=== PATIENT | female | born 1970 | race Caucasian/White ===

== ENCOUNTER 2017-12-26 10:42 | Outpatient (CLI) | payer MEDICAID, SELFPAY ==
[2017-12-26 11:10] LABS: Hemoglobin A1C 5.6 % (4.5-6.2)
[2017-12-26 11:33] LABS: TSH 2.44 uIU/mL (0.358-3.74)
[2017-12-27 12:16] LABS: Hepatitis C Ab w Rflx HCV PCR Negative (NEGAT)
== END 2017-12-26 10:43 ==
PROVIDERS: PCP General Practice; Visit Provider General Practice
DX: E11.9 Type 2 diabetes mellitus without complications (principal); E03.9 Hypothyroidism, unspecified; Z11.59 Encounter for screening for other viral diseases
CPT/HCPCS: 36415; 86803; 83036; 84443

== ENCOUNTER 2018-05-11 15:59 | Outpatient (REF) | payer MEDICAID, SELFPAY ==
--- NOTE | 2018-05-11 13:00 | PAPFT_PTH ---
PATIENT: José Miguel Park LOC: [facility] U#:[id number] AGE/SX: 47/F ROOM: RE05/11/[address]: LUIS Villalobos : 1970 BED: DIS: 05/11/2018 SPEC #: [id number] RECD: 05/11/18 17:48 STATUS: BELEN REQ #: [id number] KWAME: 05/11/18 13:[address]: Ana Maria Turner [facility] Cytology RECD BY: Brandy Bray ENTERED: 05/11/18 17:49 SP TYPE: PAPFT OTHR DR: Gaudencio Ramirez Tissues: 1 - CX/ENDOCX FOR PAP SMEARS Procedures: PAP THIN PREP/UVM Screening HPV DNA PROBE Comments: [id number]
== END 2018-05-11 16:19 ==
LOC: LBN 15:59
PROVIDERS: PCP General Practice; Visit Provider Nurse Practitioner Family
DX: Z12.4 Encounter for screening for malignant neoplasm of cervix (principal); Z11.51 Encounter for screening for human papillomavirus (HPV)
CPT/HCPCS: 88142; 87624

== ENCOUNTER 2018-06-13 00:54 | Outpatient (CLI) | payer MEDICAID, SELFPAY ==
--- NOTE | 2018-06-13 12:28 | DI.MAMMO_ITS ---
SYMPTOMS/DIAGNOSIS: SCREENING, Z12.31 MAMMOGRAMS: Mammograms were interpreted according to the usual protocol including computer analysis with CAD system, tomosynthesis and C view imaging. Comparison is with the prior examinations. No suspicious masses or microcalcifications are seen. There is no definite evidence of malignancy. IMPRESSION: Negative mammogram. Routine screening is recommended. Category 1, breast density A. MQSA ASSESSMENT OF FINDINGS: Negative. Category 1. Patient will receive a letter notifying them of these results. BI-RAD category A. The breasts are almost entirely fatty.
== END 2018-06-13 01:14 ==
PROVIDERS: PCP General Practice; Visit Provider Nurse Practitioner Family
DX: Z12.31 Encounter for screening mammogram for malignant neoplasm of breast (principal)
CPT/HCPCS: 77063; 77067

== ENCOUNTER 2018-07-28 09:44 | Outpatient (CLI) | payer MEDICAID, SELFPAY ==
[2018-07-28 11:23] LABS: Potassium 3.8 mmol/L (3.5-5.1)
[2018-07-28 11:28] LABS: Bilirubin Negative (Negative); Blood Negative (Negative); Clarity Clear; Glucose Negative (Negative); Ketones Negative (Negative); Leukocyte Esterase Negative (Negative); Nitrite Negative (Negative); Specific Gravity <= 1.005 (1.005-1.025); Urobilinogen 0.2 EU/dL (Up TO 0.2)
== END 2018-07-28 10:04 ==
PROVIDERS: PCP General Practice; Visit Provider General Practice
DX: I10 Essential (primary) hypertension (principal)
CPT/HCPCS: 81003; 82565; 84132

== ENCOUNTER 2018-08-25 11:28 | Outpatient (CLI) | payer MEDICAID, SELFPAY ==
[2018-08-25 13:06] LABS: Anion Gap 9.1 mmol/L (3-11); BUN 9 mg/dL (7-18); CO2 27.9 mmol/L (21.0-32.0); CREATININE 0.66 mg/dL (0.55-1.02); Chloride 96 mmol/L (98-107); Potassium 3.9 mmol/L (3.5-5.1); Sodium 133 mmol/L (136-145)
== END 2018-08-25 11:48 ==
PROVIDERS: PCP General Practice; Visit Provider General Practice
DX: I10 Essential (primary) hypertension (principal)
CPT/HCPCS: 36415; 80051; 84520; 82565

== ENCOUNTER 2018-09-20 08:05 | Outpatient (CLI) | payer MEDICAID, SELFPAY ==
[2018-09-20 08:57] LABS: Sodium 135 mmol/L (136-145)
== END 2018-09-20 08:25 ==
PROVIDERS: PCP General Practice; Visit Provider General Practice
DX: E87.1 Hypo-osmolality and hyponatremia (principal)
CPT/HCPCS: 36415; 84295

== ENCOUNTER 2018-11-07 08:18 | Outpatient (CLI) | payer MEDICAID, SELFPAY ==
[2018-11-07 09:54] LABS: COMMENT (LAB VIEW ONLY) 41.29 mg/dL; Microalb ug/mg Crea 21.6 ug/mg Cr
[2018-11-07 10:07] LABS: Anion Gap 8.7 mmol/L (3-11); CO2 26.3 mmol/L (21.0-32.0); Calculated LDL 100; Chloride 102 mmol/L (98-107); Cholesterol 173 mg/dL (50-200); Glucose 129 mg/dL (70-100); HDL Cholesterol 52 mg/dL (40-60); Potassium 3.9 mmol/L (3.5-5.1); Sodium 137 mmol/L (136-145); TSH (W/Ref FT4) 1.34 uIU/mL (0.358-3.74); Triglyceride 107 mg/dL (30-150)
[2018-11-07 15:16] LABS: BUN 7 mg/dL (7-18)
== END 2018-11-07 08:38 ==
PROVIDERS: PCP Internal Medicine; Visit Provider Internal Medicine
DX: E03.9 Hypothyroidism, unspecified (principal); E11.9 Type 2 diabetes mellitus without complications; I10 Essential (primary) hypertension
CPT/HCPCS: 36415; 80048; 80061; 83721; 82043; 82570; 84443

== ENCOUNTER 2019-07-12 01:39 | Outpatient (CLI) | payer MEDICAID, SELFPAY ==
--- NOTE | 2019-07-12 12:30 | DI.MAMMO_ITS ---
EXAM: MAMMO SCREENING CLINICAL HISTORY: screening TECHNIQUE: Mammograms were interpreted according to the usual protocol including computer analysis w [employer] CAD system, tomosynthesis and C-view imaging. COMPARISON: 2011 through 2018 FINDINGS: The breasts are composed of mainly fatty density , Breast Density category A. Mild scarring from bilateral breast reduction is again noted. No suspicious masses or suspicious microcalcifications are seen. No skin thickening or abnormal axillary lymph nodes are seen. There has been no significant change from prior exams. IMPRESSION: BIRADS Category 1, negative mammogram. Yearly screening mammography is recommended. Breast density category A.
== END 2019-07-12 01:59 ==
PROVIDERS: PCP Internal Medicine; Visit Provider Nurse Practitioner Family
DX: Z12.31 Encounter for screening mammogram for malignant neoplasm of breast (principal)
CPT/HCPCS: 77063; 77067

== ENCOUNTER 2019-11-09 04:16 | Outpatient (CLI) | payer MEDICAID, SELFPAY ==
[2019-11-09 12:42] LABS: Anion Gap 9.9 mmol/L (3-11); BUN 8 mg/dL (7-18); CO2 26.1 mmol/L (21.0-32.0); CREATININE 0.84 mg/dL (0.55-1.02); Calcium 9.7 mg/dL (8.5-10.1); Calculated LDL 99 mg/dL (<100); Chloride 100 mmol/L (98-107); Cholesterol 184 mg/dL (<200); Glucose 198 mg/dL (74-106); HDL Cholesterol 56 mg/dL (40-60); Potassium 3.7 mmol/L (3.5-5.1); Sodium 136 mmol/L (136-145); TSH 1.36 uIU/mL (0.36-3.74); Triglyceride 146 mg/dL (<150)
[2019-11-09 12:48] LABS: COMMENT (LAB VIEW ONLY) < 13.00 mg/dL
== END 2019-11-09 04:36 ==
PROVIDERS: PCP Internal Medicine; Visit Provider Internal Medicine
DX: E11.9 Type 2 diabetes mellitus without complications (principal); E78.00 Pure hypercholesterolemia, unspecified; I10 Essential (primary) hypertension; E03.9 Hypothyroidism, unspecified
CPT/HCPCS: 36415; 80048; 80061; 82043; 82570; 84443

== ENCOUNTER 2020-01-25 15:00 | Outpatient (REF) | payer MEDICAID, SELFPAY ==
[2020-01-28 14:52] LABS: Chlamydia Result Negative (Negative); GC Result Negative (Negative)
== END 2020-01-25 15:20 ==
LOC: LBN 15:00
PROVIDERS: PCP Internal Medicine; Visit Provider Nurse Practitioner Family
DX: Z11.3 Encounter for screening for infections with a predominantly sexual mode of transmission (principal)
CPT/HCPCS: 87491; 87591

== ENCOUNTER 2020-02-08 02:57 | Outpatient (CLI) | payer MEDICAID, SELFPAY ==
--- NOTE | 2020-02-08 06:30 | DI.US_ITS ---
EXAM: US PELVIS TRANSVAGINAL CLINICAL HISTORY: abnormal vaginal bleeding,N93.9 TECHNIQUE: Ultrasound performed using standard protocol. COMPARISON: US ABDOMEN ULTRASOUND (P) from 02/13/2013 FINDINGS: Pelvic ultrasound was performed transabdominally and transvaginally. Uterus is heterogeneous and doug sures 67 x 33 x 48 millimeters. Endometrial stripe is about 7 millimeters in thickness and appears h eterogeneous. Small nabothian cysts are noted. The ovaries show a normal follicular appearance. Doppler evaluation of the ovaries is unremarkable. No free fluid in the cul-de-sac Limited scanning of the kidneys was obtained. No gross hydronephrosis. Poor visualization of right kidney, possible small echogenic focus of the upper pole of the right kidney, suspect angiomyolipoma. IMPRESSION: Pelvic ultrasound was unremarkable except for mild heterogeneity of the endometrial stripe. The nancy ent is reportedly premenopausal. DATA REPOSITORY:
== END 2020-02-08 03:17 ==
PROVIDERS: PCP Internal Medicine; Visit Provider Nurse Practitioner Family
DX: N93.8 Other specified abnormal uterine and vaginal bleeding (principal)
CPT/HCPCS: 76830; 76856

== ENCOUNTER 2020-02-08 12:23 | Outpatient (REF) | payer MEDICAID, SELFPAY ==
--- NOTE | 2020-02-08 09:15 | ENDOMET_PTH ---
PATIENT: José Miguel Park LOC: [facility] U#:[id number] AGE/SX: 49/F ROOM: RE02/08/[address]: Roxy Guthrie DO : 1970 BED: DIS: 02/08/2020 SPEC #: [id number] RECD: 02/08/20 12:53 STATUS: BELEN REQ #: [id number] KWAME: 02/08/20 09:[address]: Roxy Guthrie DEPT: Surgical Specimen RECD BY: Brandy Bray ENTERED: 02/08/20 12:54 SP TYPE: Endomet OTHR DR: Lynsey Knapp MD Tissues: 1 - ENDOMETRIUM BX/RICHARD Procedures: GROSS AND MICRO LEVEL 4 Comments: [id number]
== END 2020-02-08 12:43 ==
LOC: LBN 12:23
PROVIDERS: PCP Internal Medicine; Visit Provider Obstetrics & Gynecology
DX: N85.00 Endometrial hyperplasia, unspecified (principal)
CPT/HCPCS: 88305

== ENCOUNTER 2021-08-20 02:14 | Outpatient (CLI) | payer MEDICAID, SELFPAY ==
--- NOTE | 2021-08-20 09:15 | DI.MRI_ITS ---
Exam(s) MR LOWER JOINT RT WO EXAM: MR LOWER JOINT RT WO CLINICAL HISTORY: DERANGEMENT OF MEDIAL MENISCUS, M23.309. TECHNIQUE: Multiplanar multisequence MRI was performed. COMPARISON: CR XR KNEE COMPLETE MIN 4V RT from 06/27/2021 FINDINGS: BONES: There is no fracture or contusion pattern. JOINTS: Severe narrowing of lateral patellofemoral joint space, periarticular spurring and lateral pa tellar subluxation. Cartilage thinning down to bone. Abnormal signal in the lateral patellar facet and adjacent aspect of the femur. Spurring lateral femoral condyle lateral tibial plateau. Mild car tilage thinning and irregularity of over the femoral condyles and tibial plateaus. Small to moderate -sized effusion is present. Ovoid bony loose body anterior to the tibial spines. TENDONS: Extensor mechanism: Unremarkable. Medial retinaculum: Unremarkable. Lateral retinaculum: Unremarkable. Popliteus: Unremarkable. MUSCLES: Unremarkable. MENISCI: Degenerative signal changes, medial greater than lateral. No focal tear.. SOFT TISSUES: Mild anterior edema. LIGAMENTS: Anterior Cruciate: Edema in the distal ACL no evidence of disrupted fibers. Posterior Cruciate: Unremarkable. Medial Collateral:Unremarkable. Lateral Collateral: Unremarkable. OTHER: Tiny Jesus's cyst. IMPRESSION: Severe degenerative changes of the lateral patellofemoral joint. Joint effusion. Loose body anterio r to the tibial spines. Question of ACL sprain versus mucoid degeneration. Degenerative changes of the menisci. DATA REPOSITORY:
== END 2021-08-20 02:34 ==
PROVIDERS: Visit Provider Family Medicine
DX: M17.11 Unilateral primary osteoarthritis, right knee (principal); M25.461 Effusion, right knee
CPT/HCPCS: 73721

== ENCOUNTER 2022-02-24 15:50 | Emergency (ER) | payer MEDICAID, SELFPAY ==
[2022-02-24 15:52] VITALS: BP 140/61; PULSE 73; RESP 16; TEMP 37.1; O2SAT 98
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
[2022-02-24 16:52] LABS: Bilirubin Negative (Negative); Blood Trace-intact (Negative); Glucose Negative (Negative); Ketones Negative (Negative); Leukocyte Esterase Small (Negative); Nitrite Negative (Negative); Urobilinogen 0.2 EU/dL (Up TO 0.2)
[2022-02-24 17:02] LABS: *AMPHETAMINES SCREEN URINE Negative (Negative); *BARBITURATES SCREEN URINE Negative (Negative); *BENZODIAZEPINES SCREEN URINE Negative (Negative); Cannabinoids THC Negative (Negative); Cocaine Screen,Urine Negative (Negative); METHADONE URINE SCREEN Negative (Negative); OPIATES URINE SCREEN Negative (Negative)
[2022-02-24 17:03] LABS: Abs Immature Grans 0.03 10^3/uL (0.0-0.06); Absolute Basophil Count 0.06 10^3/uL (0.0-0.2); Absolute Eosinophil Count 0.14 10^3/uL (0.0-0.7); Absolute Lymphocyte Count 3.01 10^3/uL (1.2-3.4); Absolute Monocyte Count 0.74 10^3/uL (0.1-0.8); Absolute Neutrophil Count 5.79 10^3/uL (1.2-6.7); Basophils % 0.6; Eosinophils % 1.4; HCT 39.2 % (36.0-46.0); HGB 13.9 g/dL (11.2-15.7); Immature Grans % 0.3; Lymphocytes % 30.8; MCH 32.6 pg (27.0-33.0); MCHC 35.5 % (32.0-36.0); MCV 92 fL (80-95); MPV 9.2 fL (8.0-11.0); Monocytes % 7.6; Neutrophils % 59.3; Platelet Count 323 10^3/uL (130-400); RBC 4.26 10^6/uL (3.93-5.22); RDW 11.2 % (11.7-14.6); WBC 9.77 10^3/uL (4.4-10.8)
[2022-02-24 17:05] LABS: Clarity Clear (Clear)
[2022-02-24 17:09] LABS: Tricyclic Antidepressants Negative (Negative)
[2022-02-24 17:11] LABS: Bacteria Rare HPF (Negative); C & S Indicated? Yes; Crystals Negative HPF (Negative); Epithelial Cells Few HPF (Negative); Mucus Negative (Negative); RBC 0-2 HPF (0-2)
[2022-02-24 17:22] LABS: ALT 33 U/L (14-59); AST 18 U/L (15-37); Albumin 3.7 g/dL (3.4-5.0); Alkaline Phosphatase 64 U/L (46-116); Anion Gap 8.6 mmol/L (3-11); BUN 9 mg/dL (7-18); Bilirubin, Total 0.3 mg/dL (0.2-1.0); CO2 26.4 mmol/L (21.0-32.0); CREATININE 0.7 mg/dL (0.55-1.02); Calcium 9.3 mg/dL (8.5-10.1); Chloride 99 mmol/L (98-107); Estimated GFR 104.65 (mL/min/1.73m2); Glucose 98 mg/dL (74-106); Potassium 3.2 mmol/L (3.5-5.1); Sodium 134 mmol/L (136-145); Total Protein 7.3 g/dL (6.4-8.2)
[2022-02-24 17:42] LABS: ETHANOL BLOOD < 3.0 mg/dL (<10)
[2022-02-24 17:58] LABS: Source Nasal/Nares
[2022-02-24 18:46] LABS: COVID-19 PCR Negative (Negative)
[2022-02-24] MEDS: ALPRAZolam 0.25 MG TAB 1 MG PO (21:48)
[2022-02-24] MEDS: lamoTRIgine 25 MG TAB 50 MG PO (21:48)
[2022-02-25] MEDS: Levothyroxine 88 MCG TAB PO (07:48)
--- NOTE | 2022-02-25 07:53 | ED.PROG_ITS ---
Date of service: 02/25/22 Time of Service: 07:54 Medical Decision Making Patient stable overnight, here voluntarily, awaiting inpatient psychiatric treatment placement. Sign Out Sign Out Data: Sign Out Comment: Voluntary. Medically cleared. Awaiting placement. Last updated by Arlene Lowe DO at 02/24/22 23:30 Discharge Plan Disposition Patient Disposition: STILL A PATIENT Condition: Stable Discharge Details Clinical Impression: Depression, Suicidal ideation Primary Care Provider: Unknown,Unknown ED Provider: Herson Jeter Home Meds and New Rx's Prescriptions: No Action albuterol sulfate [ProAir HFA] 90 mcg/actuation HFA aerosol inhaler 1 puff IH PRN medroxyprogesterone [Depo-Provera] 150 mg/mL syringe 150 mg IM ONCE Qty: 1 0RF levothyroxine [Synthroid] 88 mcg tablet 88 mcg PO DAILY Qty: 90 3RF (DME) blood-glucose meter [Blood Glucose Monitoring] Kit See Rx Instructions .ROUTE .MEDSUPPLY Qty: 1 0RF Rx Instructions: As directed. freestyle monitor. e11.9 (DME) FreeStyle Test Strip See Rx Instructions .ROUTE .MEDSUPPLY Qty: 100 6RF Rx Instructions: As directed to check Blood sugars 3x daily. calcium carbonate-vitamin D3 [Calcium 600 + D(3)] 600 mg(1,500mg) -200 unit tablet 1 tab PO BID Qty: 180 3RF (DME) lancets [FreeStyle Lancets] 28 gauge misc See Rx Instructions .ROUTE .MEDSUPPLY Qty: 100 3RF Rx Instructions: Use once a day for goal A1c < 7; Dx E11.9 fluticasone propionate [Flonase Allergy Relief] 50 mcg/actuation spray,suspe nsion 1 spray ONEAL DAILY PRN (Reason: nasal congestion) Qty: 36.4 0RF Premarin 0.625 mg/gram cream 1 applic VG twice weekly Qty: 30 3RF Rx Instructions: Use 0.5 GM in vagina twice weekly lamotrigine [Lamictal] 25 MG tablet 50 mg PO BID ziprasidone HCl [Geodon] 20 MG capsule 20 mg PO QAM ziprasidone HCl [Geodon] 40 MG capsule 40 mg PO HS alprazolam 1 mg Tablet 1 mg PO QHS metformin 500 mg Tablet 500 mg PO DAILY citalopram 40 mg Tablet 40 mg PO .QHS famotidine 40 mg Tablet 40 mg PO DAILY bupropion HCl 150 mg Tablet Extended Release 24 Hr 150 mg PO QAM alprazolam 0.5 mg Tablet,Disintegrating 0.5 mg PO DAILY omeprazole 20 mg Tablet,Delayed Release (Dr/Ec) 40 mg PO DAILY Lactobacillus acidoph-L.bulgar 1 million cell tablet 1 tab PO DAILY Label Comments: TAKE ONE TABLET BY MOUTH EVERY DAY IN THE MORNING
[2022-02-25] MEDS: Calcium 600mg/Vit D 200U TAB 1 TAB PO (08:22)
[2022-02-25] MEDS: lamoTRIgine 25 MG TAB 50 MG PO (08:22)
[2022-02-25] MEDS: metFORMIN C.R. 500 MG TABCR PO (08:23)
[2022-02-25] MEDS: Ziprasidone 20 MG CAP PO (08:23)
--- NOTE | 2022-02-25 09:42 | ED.PROG_ITS ---
Date of service: 02/25/22 Time of Service: 09:43 Medical Decision Making pt here voluntary for depression, stable overnight and currently calm resting in bed no acute complaints. Spoke with Dr. Valentine from [facility] and possibly could be transferred today. Sign Out Sign Out Data: Sign Out Comment: Voluntary. Medically cleared. Awaiting placement. Last updated by Arlene Lowe DO at 02/24/22 23:30 Sign Out Comment: Here voluntarily awaiting placement. Home meds ordered Last updated by Herson Jeter MD at 02/25/22 07:55 Discharge Plan Disposition Patient Disposition: [facility] Condition: Stable Discharge Details Clinical Impression: Depression, Suicidal ideation Primary Care Provider: Unknown,Unknown ED Provider: Yoseph Person Home Meds and New Rx's Prescriptions: No Action albuterol sulfate [ProAir HFA] 90 mcg/actuation HFA aerosol inhaler 1 puff IH PRN medroxyprogesterone [Depo-Provera] 150 mg/mL syringe 150 mg IM ONCE Qty: 1 0RF levothyroxine [Synthroid] 88 mcg tablet 88 mcg PO DAILY Qty: 90 3RF (DME) blood-glucose meter [Blood Glucose Monitoring] Kit See Rx Instructions .ROUTE .MEDSUPPLY Qty: 1 0RF Rx Instructions: As directed. freestyle monitor. e11.9 (DME) FreeStyle Test Strip See Rx Instructions .ROUTE .MEDSUPPLY Qty: 100 6RF Rx Instructions: As directed to check Blood sugars 3x daily. calcium carbonate-vitamin D3 [Calcium 600 + D(3)] 600 mg(1,500mg) -200 unit tablet 1 tab PO BID Qty: 180 3RF (DME) lancets [FreeStyle Lancets] 28 gauge misc See Rx Instructions .ROUTE .MEDSUPPLY Qty: 100 3RF Rx Instructions: Use once a day for goal A1c < 7; Dx E11.9 fluticasone propionate [Flonase Allergy Relief] 50 mcg/actuation spray,suspension 1 spray ONEAL DAILY PRN (Reason: nasal congestion) Qty: 36.4 0RF Premarin 0.625 mg/gram cream 1 applic VG twice weekly Qty: 30 3RF Rx Instructions: Use 0.5 GM in vagina twice weekly lamotrigine [Lamictal] 25 MG tablet 50 mg PO BID ziprasidone HCl [Geodon] 20 MG capsule 20 mg PO QAM ziprasidone HCl [Geodon] 40 MG capsule 40 mg PO HS metformin 500 mg Tablet 500 mg PO DAILY citalopram 40 mg Tablet 40 mg PO .QHS famotidine 40 mg Tablet 40 mg PO DAILY bupropion HCl 150 mg Tablet Extended Release 24 Hr 150 mg PO QAM alprazolam 0.5 mg Tablet,Disintegrating 0.5 mg PO DAILY omeprazole 20 mg Tablet,Delayed Release (Dr/Ec) 40 mg PO DAILY Lactobacillus acidoph-L.bulgar 1 million cell tablet 1 tab PO DAILY Label Comments: TAKE ONE TABLET BY MOUTH EVERY DAY IN THE MORNING alprazolam 1 mg Tablet Extended Release 24 Hr 1 mg PO HS
--- NOTE | 2022-02-25 10:16 | PDOC.CMSAFED ---
- If Service Date Differs Date of service: 02/25/22 Time of Service: 10:16 Care Management Safety Plan Status: Voluntary - Reason for Wait Reason for Wait: Inpatient Admission VOLUNTARY FOR INPATIENT PSYCHIATRIC STABILIZATION. Patient is appropriate in all interactions since arriving at [facility]; Pt has demonstrated appropriate coping and communication skills, has articulated his or her needs and concerns and is fully engaged during staff interactions. Safety plan has been established with patient, and care team, to adhere to patient goals, identify restrictions based on behavioral status, address nutrition, and determine allowed personal belongings, tools for hygiene and personal care. Determine level of activity including ambulation, level of supervision, visitors, and determine privileges based on behaviors and level of engagement by pt. SAFETY PLAN: 1. Will remain on suicide precautions. In Paper Clothes 2. Will remain in room under direct supervision of one-on-one staff at all times provided by [employer]; LADONNA, BETTING CLERK supervisor fiber locking. 3. May have paper cups, plates, finger foods as well as a cardboard spoon with which to eat meals. 4. Follow [facility] Management of the Admitted Behavioral Health Patient policy. 5. Comfort bath system only, shower permitted with escort at RN discretion. 6. No personal belongings-soft items permitted at RN discretion. 7. Visitors-none at this time. 8. Activities: soft cart items approved per RN discretion. 9. Bathroom privileges with escort in the ED, available in room without limitation on M/S. 10. Phone: contact limited to family at this time, via cordless phone at RN discretion. 11. Due to VOLUNTARY status, if patient wishes to leave [facility], staff will contact [facility] Crisis Screener ([phone]) and On-Call Retail Salesworker ([phone]) as soon as possible. In the event of elopement, notify [place] [employer] ([phone]). Patient is currently voluntarily at [facility] and seeking inpatient admission when a bed becomes available. [facility] Frontline Light Oil Operator will continue seeking placement. Please contact the Elementary Teacher Retail Salesworker ([phone]) and [facility] Light Oil Operator ([phone]) for any needed changes in the Safety Plan. Safety plan has been provided to interdepartmental care team.
--- NOTE | 2022-02-25 10:20 | PDOC.ERCMPRO ---
- If Service Date Differs Date of service: 02/25/22 Time of Service: 10:20 Care Management Progress Note S/O: A: José Miguel is a 51 year old woman admitted to the ED for SI P: José Miguel is awaiting voluntary placement in an inpatient psychiatric facility for stabilization.
[2022-02-25 11:19] VITALS: BP 131/69; PULSE 76; RESP 18; TEMP 36.6; O2SAT 98
== END 2022-02-25 12:22 | disposition short-term general hospital (02) ==
PROVIDERS: Physician Assistant; Emergency Provider Emergency Medicine
DX: F32.A Depression, unspecified (principal)
CPT/HCPCS: 80053; 80307; 81025; 87635; 99285; 80320; 81003; 81015; 85025; 87086

== ENCOUNTER → 2022-04-27 02:35 | Outpatient (CLI) | payer MEDICAID, SELFPAY ==
--- NOTE | 2022-04-27 07:15 | DI.RAD_ITS ---
Exam(s) XR SACRUM EXAM: XR SACRUM CLINICAL HISTORY: Pain directly on the sacrum,low back pain, m54.50. TECHNIQUE: 2D digital imaging was performed. Two images were obtained. COMPARISON: No exams were available for comparison FINDINGS: BONES: No acute fracture is present. No bony destructive lesion is seen. JOINTS: No dislocation present. SOFT TISSUE: Normal. IMPRESSION: Unremarkable radiographs of the sacrum. DATA REPOSITORY: RADIATION DOSE DELIVERED:
== END ==
PROVIDERS: Visit Provider Family Medicine
DX: M54.50 Low back pain, unspecified (principal)
CPT/HCPCS: 72220

== ENCOUNTER 2022-04-27 03:27 | Outpatient (CLI) | payer MEDICAID, SELFPAY ==
[2022-04-27 18:49] LABS: CRP, High Sensitivity >15.00 mg/L (See Note)
== END 2022-04-27 03:28 | disposition home or self-care (01) ==
LOC: LBO 03:27
PROVIDERS: Visit Provider Family Medicine
DX: M54.50 Low back pain, unspecified (principal)
CPT/HCPCS: 86141

== ENCOUNTER 2022-04-30 14:16 | Outpatient (REF) | payer MEDICAID, SELFPAY ==
[2022-05-02 13:27] LABS: Influenza A RNA Result Negative (Negative); Influenza B RNA Result Negative (Negative); RSV RNA Result Negative (Negative)
[2022-05-02 13:31] LABS: COVID-19 RT-PCR UVMMC Result Positive (Negative)
== END 2022-04-30 14:17 | disposition home or self-care (01) ==
LOC: LBN 14:16
PROVIDERS: Nurse Practitioner Family; PCP Family Medicine; Visit Provider Family Medicine
DX: R05.9 Cough, unspecified (principal); R06.02 Shortness of breath; R09.81 Nasal congestion; Z20.822 Contact with and (suspected) exposure to COVID-19
CPT/HCPCS: 87631; U0003

== ENCOUNTER 2022-05-05 15:09 | Emergency (ER) | payer MEDICAID, SELFPAY ==
[2022-05-05 15:09] VITALS: BP 155/76; PULSE 77; RESP 16; TEMP 36.4; O2SAT 98
[2022-05-05 15:13] VITALS: RESP 16
--- NOTE | 2022-05-05 15:45 | RT.EKG_ITS ---
APPROVED REPORT Exam: Resting ECG Reason for Exam: Shortness of Breath Patient Location: E HR:67 bpm ECG Measurements Heart Rate 67 AXIS FL 180 P 26 QRSd 89 QRS 26 QT 385 T 32 QTc 406 Conclusion Sinus rhythm...normal P axis, V-rate 60- 99 sinus rhythm, normal axis, normal intervals, non ischemic
--- NOTE | 2022-05-05 15:45 | DI.RAD_ITS ---
Exam(s) XR CHEST 2V PA LATERAL EXAM: XR CHEST 2V PA LATERAL CLINICAL HISTORY: cough, fever TECHNIQUE: 2D digital imaging was performed of the chest. Two images were obtained. PA and lateral views were obtained. COMPARISON: CR CHEST 2 VIEWS PA,LAT from 08/21/2014 FINDINGS: MEDIASTINUM: Normal. HEART: Normal. PULMONARY VASCULATURE: Normal. LUNGS: Clear. PLEURAL SPACE: No pleural effusion or pneumothorax. BONE:Within normal limits for the patient's age. OTHER FINDINGS:Normal. IMPRESSION: No acute pulmonary findings. DATA REPOSITORY: RADIATION DOSE DELIVERED:
[2022-05-05] MEDS: Albuterol/Ipratropium 3 ML UPD VIAL UPD (16:16)
[2022-05-05] MEDS: Acetaminophen 500 MG TAB 1000 MG PO (16:16)
[2022-05-05 16:37] LABS: HGB 14.2 g/dL (11.2-15.7); MCH 31.9 pg (27.0-33.0); MCHC 34.6 % (32.0-36.0); MCV 92 fL (80-95); MPV 8.7 fL (8.0-11.0); Platelet Count 342 10^3/uL (130-400); RBC 4.45 10^6/uL (3.93-5.22); RDW 10.9 % (11.7-14.6); RDW-SD 37.1 fL; WBC 11.16 10^3/uL (4.4-10.8)
[2022-05-05 16:53] LABS: ALT 31 U/L (14-59); AST 18 U/L (15-37); Albumin 3.9 g/dL (3.4-5.0); Alkaline Phosphatase 78 U/L (46-116); Anion Gap 6.7 mmol/L (3-11); BUN 7 mg/dL (7-18); Bilirubin, Total 0.3 mg/dL (0.2-1.0); CO2 28.3 mmol/L (21.0-32.0); CREATININE 0.6 mg/dL (0.55-1.02); Calcium 9.6 mg/dL (8.5-10.1); Chloride 94 mmol/L (98-107); Estimated GFR 108.61 (mL/min/1.73m2); Glucose 136 mg/dL (74-106); Potassium 3.2 mmol/L (3.5-5.1); Sodium 129 mmol/L (136-145); Total Protein 7.9 g/dL (6.4-8.2)
[2022-05-05 16:58] LABS: Troponin I < 50 ng/L (<or=60)
--- NOTE | 2022-05-05 17:17 | DI.VRAD_ITS ---
PROCEDURE INFORMATION: Exam: XR Chest Exam date and time: 05/05/2022 4:47 PM Age: 51 years old Clinical indication: Cough and fever TECHNIQUE: Imaging protocol: Radiologic exam of the chest. Views: 2 views. COMPARISON: None. FINDINGS: Lungs: The lungs are clear. There is no pulmonary vascular congestion. Pleural spaces: There are no pleural effusions present. There is no evidence of pneumothorax. Heart/Mediastinum: The cardiomediastinal silhouette is within normal limits. Diaphragm: There is mild anterior eventration of the right hemidiaphragm. Bones/joints: Unremarkable. IMPRESSION: No active cardiopulmonary disease identified. Dictated and Authenticated by: Oral Stokes MD. Ordering:ROBERT Garcia MD
[2022-05-05 17:20] LABS: D-Dimer 399 ng/mlFEU (<500)
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
[2022-05-05] MEDS: Amox. 875/Clav. 125, 2 TABS/BTL 1 TAB PO (18:02)
[2022-05-05] MEDS: Amoxicillin 875/Clav. 125 TAB PO (18:03)
[2022-05-05] MEDS: POTASSIUM CHLORIDE 20 MEQ, POTASSIUM CHLORIDE 10 MEQ 30 MEQ PO (18:08)
--- NOTE | 2022-05-05 18:17 | NUR.NOTE ---
Nursing Note: Referral faxed to PCP for lab abnormalities recheck pneumonia; early next week.
== END 2022-05-05 18:24 | disposition home or self-care (01) ==
LOC: ER 18:23
PROVIDERS: Emergency Provider Nurse Practitioner Family; PCP Family Medicine
DX: J18.9 Pneumonia, unspecified organism (principal); E87.6 Hypokalemia; D72.829 Elevated white blood cell count, unspecified; F31.9 Bipolar disorder, unspecified; E87.1 Hypo-osmolality and hyponatremia; Z20.822 Contact with and (suspected) exposure to COVID-19
CPT/HCPCS: 80053; 85027; 93005; 99284; 71046; 84484; 85379; 93010; J7620

== ENCOUNTER 2022-05-18 03:57 | Outpatient (CLI) | payer MEDICAID, SELFPAY ==
[2022-05-18 11:09] LABS: Anion Gap 7.3 mmol/L (3-11); BUN 7 mg/dL (7-18); CO2 29.7 mmol/L (21.0-32.0); CREATININE 0.6 mg/dL (0.55-1.02); Calcium 9.6 mg/dL (8.5-10.1); Chloride 98 mmol/L (98-107); Estimated GFR 108.61 (mL/min/1.73m2); Glucose 91 mg/dL (74-106); Potassium 3.6 mmol/L (3.5-5.1); Sodium 135 mmol/L (136-145)
== END 2022-05-18 03:58 | disposition home or self-care (01) ==
LOC: LBO 03:57
PROVIDERS: PCP Family Medicine; Visit Provider Family Medicine
DX: E87.6 Hypokalemia (principal)
CPT/HCPCS: 36415; 80048

== ENCOUNTER 2022-06-22 01:36 | Outpatient (CLI) | payer MEDICAID, SELFPAY ==
--- NOTE | 2022-06-22 08:51 | DI.MAMMO_ITS ---
Exam(s) MAMMO SCREENING EXAM: MAMMO SCREENING CLINICAL HISTORY: screening TECHNIQUE: Bilateral full field digital CC and MLO mammographic images were obtained with 3D tomosyn thesis and utilizing computer aided detection (CAD). COMPARISON: Available for comparison. FINDINGS: Masses/Architectural Distortion: None seen. Microcalcifications: No suspicious pleomorphic-type are seen. Skin Thickening/Nipple Retraction: None. IMPRESSION: 1. No significant interval change with no specific features of malignancy noted. 2. Unless there is more urgent need, screening mammography is recommended, as per [place] [employer] guidelines. BI-RADS Category 1 - Negative Breast Density - Category A - Almost entirely fatty Breast density category C or D implies that the patient has dense breast tissue. Dense breast tissue is very common and is not abnormal but dense breast tissue can make it harder to find cancer on a ma mmogram. Also, dense breast tissue may increase their breast cancer risk. This information about the result of the mammogram report was provided to the patient to raise their awareness. Use this report when you speak with the patient about their risks for breast cancer, which includes their family hist ory. At that time, you may recommend for more screening tests (Ultrasound or MRI) as they might be us eful based on their risk. A negative radiographic report should not delay biopsy if a dominant or clinically suspicious mass is present. Up to ten percent of cancers are not identified on mammography. A negative report may reinforce clinical impression. Adenosis and dense breasts may obscure an underlying neoplasm. False positive reports average 6 to 10%. Patient will receive a letter notifying them of these results.
== END 2022-06-22 01:56 ==
LOC: DI 01:36
PROVIDERS: PCP Family Medicine; Visit Provider Nurse Practitioner Women's Health
DX: Z12.31 Encounter for screening mammogram for malignant neoplasm of breast (principal)
CPT/HCPCS: 77063; 77067

== ENCOUNTER 2022-06-29 15:54 | Outpatient (REF) | payer MEDICAID, SELFPAY ==
[2022-06-30 20:16] LABS: COVID-19 RT-PCR UVMMC Result Negative (Negative)
== END 2022-06-29 15:55 | disposition home or self-care (01) ==
LOC: LBN 15:54
PROVIDERS: PCP Family Medicine; Visit Provider Family Medicine
DX: Z20.822 Contact with and (suspected) exposure to COVID-19 (principal)
CPT/HCPCS: U0003

== ENCOUNTER 2022-07-02 01:09 | Outpatient (CLI) | payer MEDICAID, SELFPAY ==
--- NOTE | 2022-07-02 07:00 | DI.RAD_ITS ---
Exam(s) XR CHEST 2V PA LATERAL EXAM: XR CHEST 2V PA LATERAL CLINICAL HISTORY: Possible previous BCG, needs xray for clearance,positive PPD,R76.11 TECHNIQUE: 2D digital imaging was performed of the chest. Two images were obtained. PA and lateral views were obtained. COMPARISON: CR,XR XR CHEST 2V PA LATERAL from 05/05/2022 FINDINGS: MEDIASTINUM: Normal. HEART: Normal. PULMONARY VASCULATURE: Normal. LUNGS: Clear. PLEURAL SPACE: No pleural effusion or pneumothorax. BONE:Within normal limits for the patient's age. OTHER FINDINGS:Normal. IMPRESSION: No acute pulmonary findings. DATA REPOSITORY: RADIATION DOSE DELIVERED:
== END 2022-07-02 01:29 ==
LOC: DI 01:09
PROVIDERS: PCP Family Medicine; Visit Provider Family Medicine
DX: R76.11 Nonspecific reaction to tuberculin skin test without active tuberculosis (principal)
CPT/HCPCS: 71046

== ENCOUNTER 2022-07-02 02:18 | Outpatient (CLI) | payer MEDICAID, SELFPAY ==
[2022-07-05 11:59] LABS: Measles IgG Antibody Positive (See Note); Mumps Antibody IgG Positive (See Note)
[2022-07-05 12:03] LABS: Rubella IgG Ab (UVM) Positive (See Note)
== END 2022-07-02 02:19 | disposition home or self-care (01) ==
LOC: LBO 02:19
PROVIDERS: PCP Family Medicine; Visit Provider Family Medicine
DX: Z02.1 Encounter for pre-employment examination (principal)
CPT/HCPCS: 36415; 86735; 86762; 86765

== ENCOUNTER 2022-07-05 11:15 | Emergency (ER) | payer MEDICAID, SELFPAY ==
[2022-07-05] VITALS (16 sets, daily range): BP systolic 119–152; BP diastolic 60–74; PULSE 64–83; RESP 15–16; TEMP 36.1–36.9; O2SAT 94–99
--- NOTE | 2022-07-05 11:15 | DI.CT_ITS ---
Exam(s) CT ABDOMEN PELVIS W EXAM: CT ABDOMEN PELVIS W CLINICAL HISTORY: diffuse abd pain, blood in stool, Hx appe/rajani. TECHNIQUE: Imaging Protocol: Axial computed tomography images with coronal and sagittal reformatted images were created and reviewed CONTRAST MATERIAL: Intravenous: Omnipaque 350 Contrast volume:100 ml Oral: no COMPARISON: No exams were available for comparison FINDINGS: ABDOMEN: Lung Bases: Normal where visualized. Liver: Normal density. Small cyst inferior left right lobe. No suspicious mass. Gallbladder and biliary tract: Status post cholecystectomy. No radiodense calculus or dilation. Pancreas: Normal density, no abnormal calcifications or inflammatory process. Spleen: Normal. Kidneys: Normal size, contour and axis. No radiodense stones or obstructive uropathy. Small right re nal cyst. No suspicious masses seen. Adrenal glands: No masses seen. Abdominal Aorta: Abdominal portion non-dilated. Soft tissues: Small fatty containing umbilical hernia. PELVIS: Bladder: Markedly distended to the level of the umbilicus. Mild wall thickening. No calculi.No focal mass. Bowel: Diverticulosis descending colon. No obstruction or bowel wall thickening. Appendix not seen. Normal quantity of stool. Peritoneal cavity: No ascites, collection or mesenteric inflammatory response. Bones: Within normal limits for age. Reproductive organs: Within normal limits. Lymph nodes: Unremarkable. Impression: Markedly distended urinary bladder. Diverticulosis. No evidence of diverticulitis. RADIATION DOSE DELIVERED: 1,267.61mGy.cm Total DLP DATA REPOSITORY: All CT scans at this facility are submitted to the National Radiology Data Registry (NRDR) Dose Index Registry (DIR) with the [employer] [place] [employer] (A[employer]). RADIATION OPTIMIZATION: All CT scans at this facility use at least one of these dose optimization te chniques: automated exposure control; mA and/or kV adjustment per patient size (includes targeted exa ms where dose is matched to clinical indication); or iterative reconstruction.
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
[2022-07-05] MEDS: ACETAMINOPHEN 1,000 MG/100 ML BTL 400 MG IVPB (11:47)
[2022-07-05 11:58] LABS: Abs Immature Grans 0.06 10^3/uL (0.0-0.06); Absolute Basophil Count 0.06 10^3/uL (0.0-0.2); Absolute Eosinophil Count 0.12 10^3/uL (0.0-0.7); Absolute Lymphocyte Count 2.64 10^3/uL (1.2-3.4); Absolute Monocyte Count 1.16 10^3/uL (0.1-0.8); Absolute Neutrophil Count 8.08 10^3/uL (1.2-6.7); Basophils % 0.5; HCT 41.3 % (36.0-46.0); HGB 14.1 g/dL (11.2-15.7); Immature Grans % 0.5; Lymphocytes % 21.8; MCHC 34.1 % (32.0-36.0); MCV 94 fL (80-95); MPV 8.8 fL (8.0-11.0); Monocytes % 9.6; Neutrophils % 66.6; Platelet Count 314 10^3/uL (130-400); RDW 11.4 % (11.7-14.6); RDW-SD 39.4 fL; WBC 12.13 10^3/uL (4.4-10.8)
[2022-07-05] MEDS: Ondansetron 4 MG/2 ML VIAL IVP (11:58)
[2022-07-05] MEDS: Normal Saline 500 ML IV (11:58)
[2022-07-05 12:09] LABS: Bilirubin Negative (Negative); Blood Negative (Negative); Clarity Clear (Clear); Glucose Negative (Negative); Ketones Negative (Negative); Leukocyte Esterase Trace (Negative); Nitrite Negative (Negative); Specific Gravity <= 1.005 (1.005-1.025); Urobilinogen 0.2 EU/dL (Up TO 0.2)
[2022-07-05 12:12] LABS: INR 0.9 (0.9-1.1); PTT Activated 25.6 sec (21.5-31.9); Prothrombin Time 9.6 sec (9.3-11.0)
[2022-07-05 12:13] LABS: ALT 31 U/L (14-59); AST 19 U/L (15-37); Albumin 3.7 g/dL (3.4-5.0); Alkaline Phosphatase 77 U/L (46-116); Anion Gap 7.5 mmol/L (3-11); BUN 8 mg/dL (7-18); Bilirubin, Total 0.3 mg/dL (0.2-1.0); CO2 26.5 mmol/L (21.0-32.0); CREATININE 0.6 mg/dL (0.55-1.02); Calcium 9.6 mg/dL (8.5-10.1); Chloride 96 mmol/L (98-107); Estimated GFR 108.61 (mL/min/1.73m2); Glucose 93 mg/dL (74-106); Potassium 3.4 mmol/L (3.5-5.1); Sodium 130 mmol/L (136-145); Total Protein 7.5 g/dL (6.4-8.2)
[2022-07-05 12:18] LABS: Bacteria Few HPF (Negative); C & S Indicated? Yes; Casts Negative LPF (Negative); Crystals Negative HPF (Negative); Epithelial Cells Few HPF (Negative); Mucus Negative (Negative); RBC 0-2 HPF (0-2)
[2022-07-05] MEDS: Omnipaque 350 MG/ML 500 ML BTL-Imaging package IJ (12:38)
[2022-07-05] MEDS: Normal Saline - Diluent 50 ML VIAL IJ (12:39)
[2022-07-05] MEDS: Fosfomycin Tromethamine 3 GM PACKET PO (13:44)
== END 2022-07-05 13:36 | disposition home or self-care (01) ==
PROVIDERS: Emergency Provider Student in an Organized Health Care Education/Training Program; PCP Family Medicine
DX: K64.9 Unspecified hemorrhoids (principal); J45.909 Unspecified asthma, uncomplicated; I10 Essential (primary) hypertension; E11.9 Type 2 diabetes mellitus without complications; Z87.19 Personal history of other diseases of the digestive system; Z90.49 Acquired absence of other specified parts of digestive tract; Z79.84 Long term (current) use of oral hypoglycemic drugs
CPT/HCPCS: 36415; 80053; 81025; 96361; 96374; 96375; 99285; 74177; 81003; 81015; 85025; 85610; 85730; 87086; 99284; J0131; J2405; J3490

== ENCOUNTER 2022-08-16 15:52 | Outpatient (REF) | payer MEDICAID, SELFPAY ==
--- NOTE | 2022-08-16 14:40 | PAPFT_PTH ---
PATIENT: José Miguel Park LOC: [facility] U#:[id number] AGE/SX: 51/F ROOM: RE08/16/[address]: Brandi Person NP : 1970 BED: DIS: 08/16/2022 SPEC #: [id number] RECD: 08/16/22 17:57 STATUS: BELEN REMuna #: [id number] KWAME: 08/16/22 14:[address]: Brandi Person NP DEPT: [facility] Cytology RECD BY: Brandy Bray ENTERED: 08/16/22 17:57 SP TYPE: PAPFT OTHR DR: Brooks Hamm, DO Tissues: 1 - CX/ENDOCX FOR PAP SMEARS Procedures: PAP THIN PREP/[facility] Screening HPV DNA PROBE Comments: [id number]
[2022-12-13 09:40] LABS: Chlamydia Result Negative (Negative)
[2022-12-13 09:41] LABS: GC Result Negative (Negative)
== END 2022-08-16 15:53 | disposition home or self-care (01) ==
LOC: LBN 15:52
PROVIDERS: PCP Family Medicine; Visit Provider Nurse Practitioner Women's Health
DX: N76.0 Acute vaginitis (principal); Z12.4 Encounter for screening for malignant neoplasm of cervix; R87.612 Low grade squamous intraepithelial lesion on cytologic smear of cervix (LGSIL); Z11.51 Encounter for screening for human papillomavirus (HPV); R87.810 Cervical high risk human papillomavirus (HPV) DNA test positive
CPT/HCPCS: 87491; 87591; 88142; 87480; 87510; 87624; 87660

== ENCOUNTER 2022-08-31 12:39 | Emergency (ER) | payer MEDICAID, SELFPAY ==
[2022-08-31 12:45] VITALS: BP 145/70; PULSE 90; RESP 18; TEMP 36.5; O2SAT 98
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
--- NOTE | 2022-08-31 13:00 | DI.CT_ITS ---
Exam(s) CT ABDOMEN PELVIS W EXAM: CT ABDOMEN PELVIS W CLINICAL HISTORY: Rectal bleeding, Abdominal Pain. TECHNIQUE: Imaging Protocol: Axial computed tomography images with coronal and sagittal reformatted images were created and reviewed CONTRAST MATERIAL: Intravenous: Omnipaque-350 100cc Oral: None COMPARISON: CT CT ABDOMEN PELVIS W from 07/05/2022 FINDINGS: VISUALIZED LUNG BASES: No nodules nor pleural effusions evident. ABDOMEN: There is no ascites. LIVER: Small cyst in the inferior right lobe is unchanged. No new additional hepatic findings. No d ilated intrahepatic ducts. No dilated intrahepatic ducts. GALLBLADDER/BILIARY: Gallbladder is again noted be surgically absent. CBD is not dilated. PANCREAS: No evidence of pancreatic mass nor dilatation of the pancreatic duct. SPLEEN: Spleen is not enlarged. No obvious intrasplenic lesions. Splenic and portal veins are paten t. ADRENALS: There are no significant adrenal masses. KIDNEYS:There is an unchanged benign cyst in the posterior cortex of the right kidney which measures 1.2 x 1.1 cm. No further workup recommended for this finding. No other focal renal findings. No ca lculi. No solid renal masses. No caliectasis. The right ureter is slightly prominent in diameter, similar to previous study as it appears to be compressed between the distended urinary bladder and th e iliac vessels. No radiopaque calculi seen with in are the ureter. No radiopaque calculi seen in t he urinary bladder. No masses in the bladder but bladder is again noted be distended, similar to 2 m onths ago. ABDOMINAL AORTA: Abdominal aorta is not enlarged. LYMPH NODES:There is no retroperitoneal nor paraaortic adenopathy. ABDOMINAL WALL: There is a fat only containing anterior abdominal wall midline umbilical hernia, unch anged. No other hernias. No inguinal hernias. GI: There is no evidence of bowel obstruction, free air, nor abscess. PELVIS: GI: No evidence of appendicitis.Few diverticuli noted in the upper sigmoid but no evidence of acute d iverticulitis. LYMPH NODES: There is no intrapelvic nor inguinal adenopathy. REPRODUCTIVE: Uterus size normal. No abnormal adnexal masses nor free fluid in the pelvis. URINARY BLADDER: Again noted be significantly distended. Extends up to the level of the umbilicus. OSSEOUS: No fractures and no significant osseous lesions. IMPRESSION: 1. Compared to the prior CT scan 07/05/2022, the urinary bladder is again noted be grossly distended. Somewhat dilated right ureter is most probably due to this urinary bladder distension. No caliecta sis evident. 2. There diverticuli in the upper sigmoid again noted but no evidence of acute diverticulitis. 3. Fat only containing umbilical hernia. No bowel loops within the hernia sac. No evidence of bowel obstruction. 4. Unchanged small benign 1.2 cm cyst in the right hepatic lobe. Called by myself to ER provider. RADIATION DOSE DELIVERED: 958.85mGy.cm Total DLP DATA REPOSITORY: All CT scans at this facility are submitted to the National Radiology Data Registry (NRDR) Dose Index Registry (DIR) with the [employer] (ACR). RADIATION OPTIMIZATION: All CT scans at this facility use at least one of these dose optimization te chniques: automated exposure control; mA and/or kV adjustment per patient size (includes targeted exa ms where dose is matched to clinical indication); or iterative reconstruction.
[2022-08-31] MEDS: Normal Saline 1,000 ML 1000 ML IV (13:10)
[2022-08-31] MEDS: Ondansetron 4 MG/2 ML VIAL IVP (13:11)
[2022-08-31] MEDS: FAMOTIDINE 20 MG in Normal Saline 100 ML 400 MG IVPB (13:11)
[2022-08-31 13:20] LABS: Abs Immature Grans 0.04 10^3/uL (0.0-0.06); Absolute Basophil Count 0.05 10^3/uL (0.0-0.2); Absolute Eosinophil Count 0.07 10^3/uL (0.0-0.7); Absolute Lymphocyte Count 2.09 10^3/uL (1.2-3.4); Absolute Monocyte Count 1.04 10^3/uL (0.1-0.8); Absolute Neutrophil Count 6.24 10^3/uL (1.2-6.7); Basophils % 0.5; Eosinophils % 0.7; HCT 39.1 % (36.0-46.0); HGB 13.5 g/dL (11.2-15.7); Immature Grans % 0.4; Lymphocytes % 21.9; MCH 31.9 pg (27.0-33.0); MCHC 34.5 % (32.0-36.0); MCV 92 fL (80-95); MPV 8.6 fL (8.0-11.0); Monocytes % 10.9; Neutrophils % 65.6; Platelet Count 283 10^3/uL (130-400); RBC 4.23 10^6/uL (3.93-5.22); RDW 11.3 % (11.7-14.6); RDW-SD 38.8 fL; WBC 9.53 10^3/uL (4.4-10.8)
[2022-08-31 13:35] LABS: ALT 28 U/L (14-59); AST 16 U/L (15-37); Albumin 3.5 g/dL (3.4-5.0); Alkaline Phosphatase 80 U/L (46-116); Anion Gap 5.1 mmol/L (3-11); BUN 6 mg/dL (7-18); Bilirubin, Total 0.4 mg/dL (0.2-1.0); CO2 27.9 mmol/L (21.0-32.0); CREATININE 0.6 mg/dL (0.55-1.02); Calcium 9.4 mg/dL (8.5-10.1); Chloride 98 mmol/L (98-107); Estimated GFR 108.61 (mL/min/1.73m2); Glucose 96 mg/dL (74-106); Potassium 3.8 mmol/L (3.5-5.1); Sodium 131 mmol/L (136-145); Total Protein 7.2 g/dL (6.4-8.2)
[2022-08-31] MEDS: Omnipaque 350 MG/ML 500 ML BTL-Imaging package IJ (13:41)
[2022-08-31] MEDS: Normal Saline - Diluent 50 ML VIAL IJ (13:42)
[2022-08-31 14:39] VITALS: BP 123/69; PULSE 79; TEMP 36.5; O2SAT 100
[2022-08-31] MEDS: HYDROCORTISONE 2.5% PR (14:53)
== END 2022-08-31 14:53 | disposition home or self-care (01) ==
PROVIDERS: Emergency Provider Registered Nurse Emergency; PCP Family Medicine
DX: K62.5 Hemorrhage of anus and rectum (principal); I10 Essential (primary) hypertension; E11.9 Type 2 diabetes mellitus without complications; E03.9 Hypothyroidism, unspecified; R11.0 Nausea; R42 Dizziness and giddiness; R51.9 Headache, unspecified; R10.9 Unspecified abdominal pain; K57.90 Diverticulosis of intestine, part unspecified, without perforation or abscess without bleeding
CPT/HCPCS: 80053; 96361; 96365; 96375; 99285; 74177; 83735; 85025; 99284; J2405; J3490

== ENCOUNTER 2022-09-06 18:42 | Emergency (ER) | payer MEDICAID, SELFPAY ==
[2022-09-06 18:41] VITALS: BP 140/95; PULSE 80; RESP 15; TEMP 36.9; O2SAT 97
--- NOTE | 2022-09-06 19:30 | DI.RAD_ITS ---
Exam(s) XR ABDOMEN FLAT UPRIGHT EXAM: 2D digital imaging was performed. CLINICAL HISTORY: constipation. COMPARISON: No exams were available for comparison TECHNIQUE: Supine and upright views of the abdomen was performed. Four images were obtained. FINDINGS: LUNG BASES: Clear. BOWEL GAS PATTERN: Nondistended. FREE AIR: None. CALCIFICATIONS: No radiopaque calcifications. OSSEOUS STRUCTURES: Normal for age. OTHER FINDINGS: Surgical clips are seen in the right upper quadrant of the abdomen. IMPRESSION: No evidence of an acute abdomen. DATA REPOSITORY: RADIATION DOSE DELIVERED:
[2022-09-06] MEDS: Lidocaine 2% Jelly 6 ML SYR TP (19:38)
[2022-09-06] MEDS: Lactated Ringers 1,000 ML 1000 ML IV (19:39)
[2022-09-06 19:56] LABS: Abs Immature Grans 0.04 10^3/uL (0.0-0.06); Absolute Basophil Count 0.06 10^3/uL (0.0-0.2); Absolute Eosinophil Count 0.22 10^3/uL (0.0-0.7); Absolute Lymphocyte Count 2.96 10^3/uL (1.2-3.4); Absolute Monocyte Count 0.86 10^3/uL (0.1-0.8); Absolute Neutrophil Count 4.54 10^3/uL (1.2-6.7); Basophils % 0.7; Eosinophils % 2.5; HGB 12.9 g/dL (11.2-15.7); Immature Grans % 0.5; Lymphocytes % 34.1; MCH 32.8 pg (27.0-33.0); MCHC 35.8 % (32.0-36.0); MCV 92 fL (80-95); Monocytes % 9.9; Neutrophils % 52.3; Platelet Count 270 10^3/uL (130-400); RBC 3.93 10^6/uL (3.93-5.22); RDW 11.1 % (11.7-14.6); RDW-SD 37.2 fL; WBC 8.68 10^3/uL (4.4-10.8)
[2022-09-06 20:10] LABS: ALT 26 U/L (14-59); AST 15 U/L (15-37); Albumin 3.5 g/dL (3.4-5.0); Alkaline Phosphatase 66 U/L (46-116); Anion Gap 6.4 mmol/L (3-11); BUN 7 mg/dL (7-18); Bilirubin, Total 0.4 mg/dL (0.2-1.0); CO2 28.6 mmol/L (21.0-32.0); CREATININE 0.5 mg/dL (0.55-1.02); Calcium 9.3 mg/dL (8.5-10.1); Chloride 97 mmol/L (98-107); Estimated GFR 113.48 (mL/min/1.73m2); Glucose 85 mg/dL (74-106); Potassium 3.3 mmol/L (3.5-5.1); Sodium 132 mmol/L (136-145); Total Protein 6.9 g/dL (6.4-8.2)
--- NOTE | 2022-09-06 20:34 | DI.VRAD_ITS ---
PROCEDURE INFORMATION: Exam: XR Abdomen Exam date and time: 09/06/2022 7:59 PM Age: 51 years old Clinical indication: Other: Constipation TECHNIQUE: Imaging protocol: Radiologic exam of the abdomen. Views: 2 Views. Upright and supine views. COMPARISON: CT ABDOMEN PELVIS W 08/31/2022 1:45 PM FINDINGS: Gastrointestinal tract: Nonspecific fluid levels with gaseous distention throughout the bowel. Air in the rectal vault noted Intraperitoneal space: Normal. No free air. Bones/joints: Unremarkable for age. Surgical clips right upper quadrant IMPRESSION: Non-specific bowel gas pattern Dictated and Authenticated by: Ehsan Romero MD. Ordering:JOSÉ Nava MD
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
[2022-09-06 21:13] VITALS: BP 124/45; PULSE 69; RESP 18; O2SAT 99
[2022-09-09] MEDS: Glycerin Adult Suppository JAR 1 SUPP PR (14:49)
== END 2022-09-06 21:14 | disposition home or self-care (01) ==
PROVIDERS: Emergency Provider Physician Assistant; PCP Family Medicine
DX: K64.5 Perianal venous thrombosis (principal); K60.2 Anal fissure, unspecified
CPT/HCPCS: 80053; 96360; 99284; 74019; 85025

== ENCOUNTER 2022-11-12 15:16 | Outpatient (REF) | payer MEDICAID, SELFPAY ==
[2022-11-12 17:40] LABS: Source Nasal/Nares
[2022-11-12 19:10] LABS: COVID-19 PCR Negative (Negative)
== END 2022-11-12 15:17 | disposition home or self-care (01) ==
LOC: LBN 15:16
PROVIDERS: PCP Family Medicine; Visit Provider Nurse Practitioner Family
DX: R05.8 Other specified cough (principal); J02.9 Acute pharyngitis, unspecified; R06.2 Wheezing; Z20.822 Contact with and (suspected) exposure to COVID-19
CPT/HCPCS: 87635; U0003

== ENCOUNTER 2022-11-16 13:48 | Outpatient (CLI) | payer MEDICAID, SELFPAY ==
--- NOTE | 2022-11-16 13:31 | DI.RAD_ITS ---
Exam(s) XR CHEST 2V PA LATERAL EXAM: XR CHEST 2V PA LATERAL CLINICAL HISTORY: r/u Pneumonia, cough, decreased breath sounds, R05.9, R06.89 TECHNIQUE: 2D digital imaging was performed. COMPARISON: No exams were available for comparison FINDINGS: HEART: Normal size. Aorta: Not dilated. PULMONARY VASCULATURE: Normal. LUNGS: Clear. PLEURAL SPACE: No pleural effusion or pneumothorax. BONE:Unremarkable for age. IMPRESSION: No acute abnormality. DATA REPOSITORY: RADIATION DOSE DELIVERED:
== END 2022-11-16 14:08 ==
LOC: DI 13:49
PROVIDERS: PCP Family Medicine; Visit Provider Student in an Organized Health Care Education/Training Program
DX: R05.9 Cough, unspecified (principal); R06.89 Other abnormalities of breathing
CPT/HCPCS: 71046

== ENCOUNTER 2022-12-06 09:07 | Day surgery (SDC) | payer MEDICAID, SELFPAY ==
--- NOTE | 2022-12-05 14:14 | W.PM.DSUDISC ---
Date of service: 12/06/22 Time of Service: 11:41 Discharge Plan Disposition Patient Disposition: Home Condition: Good Discharge Details Reason For Visit: Screening colonoscopy Attending Provider: Hunter Pimentel Primary Care Provider: Brooks Hamm Home Meds and New Rx's Prescriptions: New ondansetron HCl 8 mg tablet 8 mg PO Q12H PRNQty: 6 0RF Rx Instructions: Take as needed for postprocedural nausea or vomiting. Continued acetylcysteine [NAC] 600 mg capsule 1,200 mg PO BID lamotrigine 25 mg tablet 25 mg PO DAILY famotidine 40 mg tablet 40 mg PO DAILY Qty: 90 3RF pantoprazole 40 mg tablet,delayed release (DR/EC) 40 mg PO DAILY Qty: 90 3RF ondansetron HCl 4 mg tablet 4 mg PO Q8H PRN (Reason: nausea and vomiting) Qty: 30 0RF fluticasone propionate [Flonase Allergy Relief] 50 mcg/actuation spray,suspension 1 spray ONEAL DAILY PRN (Reason: nasal congestion) Qty: 36.4 1RF guaifenesin 600 mg tablet extended release 12hr 600 mg PO BID Qty: 20 1RF Rx Instructions: As best covered -- medical necessity ipratropium-albuterol 0.5 mg-3 mg(2.5 mg base)/3 mL solution for nebulization 3 ml inhalation Q6H PRN (Reason: wheezing; SOB) Qty: 90 1RF (DME) compressor, for nebulizer Device See Rx Instructions .ROUTE .MEDSUPPLY Qty: 1 0RF Rx Instructions: QID for asthma exacerbation; Daily PRN Wheezing budesonide-formoterol [Symbicort] 160-4.5 mcg/actuation HFA aerosol inhaler 2 puff inhalation BID Qty: 10.2 6RF dextromethorphan polistirex [Robitussin ER] 30 mg/5 mL suspension,extended rel 12 hr 10 ml PO Q12H PRN (Reason: cough) Qty: 89 0RF levothyroxine [Synthroid] 88 mcg tablet 88 mcg PO DAILY Qty: 90 3RF diclofenac sodium [Arthritis Pain (diclofenac)] 1 % gel 2 g topical QID Rx Instructions: apply to single elbow, wrist or hand; for hand includes palm/fingers/back of hand albuterol sulfate 90 mcg/actuation HFA aerosol inhaler 1 - 2 puff inhalation Q4H PRN (Reason: shortness of breath or wheezing) Qty: 1 3RF Rx Instructions: Dispense brand of albuterol inhaler covered by patient's insurance calcium carbonate-vitamin D3 [Calcium 600 + D(3)] 600 mg(1,500mg) -200 unit tablet 1 tab PO BID Qty: 180 3RF (DME) lancets [FreeStyle Lancets] 28 gauge misc See Rx Instructions .ROUTE .MEDSUPPLY Qty: 100 3RF Rx Instructions: Use once a day for goal A1c < 7; Dx E11.9 medroxyprogesterone 150 mg/mL syringe 150 mg IM [id number] Qty: 1 4RF metformin 500 mg Tablet 500 mg PO DAILY bupropion HCl 150 mg Tablet Extended Release 24 Hr 150 mg PO QAM pramoxine [Proctofoam] 1 % foam 1 applic [place] QID Qty: 15 0RF potassium chloride 20 mEq tablet extended release 20 meq PO DAILY Qty: 5 0RF trazodone 100 mg tablet 150 mg PO DAILY Discontinued polyethylene glycol 3350 4 gram powder in packet 4 g PO DAILY Qty: 72 3RF polyethylene glycol 3350 17 gram/dose powder 238 g PO ONCE Qty: 238 0RF Rx Instructions: take per colonoscopy instructions bisacodyl [Dulcolax (bisacodyl)] 5 mg tablet,delayed release (DR/EC) 5 mg PO ONCE Qty: 4 0RF Rx Instructions: take per colonoscopy instructions Discharge Instructions Instructions: Diverticulosis (GEN), Diverticulosis Diet (GEN) Additional Instructions: José Miguel, We were able to complete your colonoscopy today without any difficulty. The quality of your preparation was very good. I had good visualization of your colon. I did not see any signs of tumors or polyps anywhere within the large intestine. Incidentally, you do have a little bit of diverticulosis. These are small weak spots in the colon wall. They can become infected or inflamed. When that happens, patients typically experience pain in the lower part of their abdomen, usually on the left side. This can be treated with antibiotics if needed. I have attached some general information here regarding diverticulosis. With a negative screening colonoscopy, I recommend another one in 10 years. 1. If tolerated, consume a soft, low fiber diet for 1-2 days. 2. Do not drive, drink alcohol, operate machinery, make critical decisions, or do activities that require coordination or balance for 24 hours. 3. Because air was put into your colon during the procedure, expelling air from your rectum (passing gas or farting) is normal. 4. You may not have a bowel movement for 1-3 days because of the colonoscopy prep. This is normal. 5. Go directly to the emergency room if you notice any of the following: Develop chills (warm to touch), or if you have a thermometer and your temperature is above 101 Difficulty breathing or difficultly swallowing Persistent vomiting Severe abdominal pain, other than gas cramps Severe chest pain Black, tarry stools Any bleeding ? exceeding one tablespoon 6. Call your physician if the site where your intravenous was started becomes red, swollen, painful, and warm to touch. 7. Your physician has reviewed your pre-procedure medications. Please continue to take those medications as previously ordered. You will be given specific information/education regarding any changes to your medications before leaving. Activity:: Activity as Tolerated Diet:: As Tolerated Discharge Orders Discharge Orders: Discharge Order (Routine); Ordered 12/05/22 Ordered By: Hunter Pimentel DS: Diagnosis Discharge Diagnosis (1) Encounter for screening colonoscopy: Status: Acute Asessment and Plan: Negative screening colonoscopy
--- NOTE | 2022-12-05 14:17 | W.COLOREPORT ---
Date of service: 12/06/22 Time of Service: 11:44 Colonoscopy Report Date of procedure: 12/06/22 Pre-op diagnosis general: Screening colonoscopy Post-op diagnosis procedure note: other (Diverticulosis, internal hemorrhoids) Procedure: Colonoscopy Surgeon: Hunter Pimentel Anesthesia Type: General:No Airway Estimated blood loss (mL): 0 Pathology: none sent Complications: None Disposition: same day Indications: José Miguel is 52 years old and she is here for her screening colonoscopy Prep: Miralax/Dulcolax Procedure Start Time: 11:20 Procedure End Time: 11:36 Retraction Time: 12 Findings: Grade 1 internal hemorrhoids, occasional sigmoid diverticula. Procedure Description: After the induction of monitored anesthetic care, and with the patient in left lateral decubitus position, I began by performing an external anorectal exam.? Perineum and skin were normal, as was the anal verge.? There was no evidence of external hemorrhoids.? Next, I performed a digital rectal exam.? I did not appreciate any abnormal findings.? Next, I advanced a colonoscope into the rectal vault.? I performed retroflexion.? There is grade 1 internal hemorrhoids.? Using insufflation, I then advanced the colonoscope beyond the rectal folds and into the sigmoid colon before advancing towards the cecum.? The quality of the prep was adequate.? The scope was noted to be in the cecum by identification of the ileocecal valve and appendiceal orifice.? I then began withdrawing the colonoscope using repeated irrigation as necessary for full evaluation of the colonic mucosa. ?There were occasional sigmoid diverticula. Once the scope was withdrawn to the level of the rectum, great care was taken to examine portions of the rectal folds.? Finally, the scope was withdrawn and the patient was brought to the same-day surgery recovery unit as the anesthetic wore off. ?The findings and instructions were shared with the patient prior to discharge.
[2022-12-06 10:13] VITALS: BP 117/76; PULSE 82; RESP 17; TEMP 36.7; O2SAT 98
[2022-12-06] MEDS: Lactated Ringers 1,000 ML 80 ML IV (10:43)
--- NOTE | 2022-12-06 10:47 | W.ANESPRE ---
General Info Date of Service Date Performed: 12/06/22 Height: 5 ft 1 in Weight: 82.4 kg Body Mass Index (BMI): 34.3 Surgical Procedure: Operation Date: 12/06/22 12:05 Proposed Procedure Side Surgeon johnathon Pimentel MD Meds Allergies and Home Medications Allergies Allergy/AdvReac Type Severity Reaction Status Date / Time ibuprofen [From Advil] Allergy Intermediate Verified 12/06/22 10:22 pollen extracts Allergy Intermediate Verified 12/06/22 10:22 latex Allergy Verified 12/06/22 10:22 ADHESIVE TAPE Allergy Unknown HER SKIN Uncoded 12/06/22 10:22 PEELS OFF RUBBING ALCOHOL Allergy Unknown RASH Uncoded 12/06/22 10:22 Home Medication Medication Instructions Recorded calcium carbonate 600 mg-vitamin 1 tab PO BID #180 tabs 12/12/19 D3 5 mcg (200 unit) tablet (Calcium 600 + D(3)) lancets 28 gauge (FreeStyle #100 ea 05/08/20 Lancets) levothyroxine 88 mcg tablet 88 mcg PO DAILY #90 tabs 11/19/20 (Synthroid) bupropion HCl 150 mg 24 hr tablet, 150 mg PO QAM 02/24/22 extended release metformin 500 mg tablet 500 mg PO DAILY 02/24/22 diclofenac sodium 1 % topical gel 2 g topical QID 04/22/22 (Arthritis Pain (diclofenac)) famotidine 40 mg tablet 40 mg PO DAILY #90 tabs 08/09/22 pantoprazole 40 mg tablet,delayed 40 mg PO DAILY #90 tabs 08/09/22 release acetylcysteine 600 mg capsule (NAC) 1,200 mg PO BID 08/19/22 lamotrigine 25 mg tablet 25 mg PO DAILY 08/19/22 medroxyprogesterone 150 mg/mL 150 mg IM [id number] #1 mL 08/23/22 intramuscular syringe ondansetron HCl 4 mg tablet 4 mg PO Q8H PRN nausea and 09/03/22 vomiting #30 tabs potassium chloride 20 mEq 20 meq PO DAILY #5 tabs 09/06/22 tablet,extended release pramoxine 1 % topical foam 1 applic [place] QID #15 grams 09/06/22 (Proctofoam) trazodone 100 mg tablet 150 mg PO DAILY 11/08/22 albuterol sulfate 90 mcg/actuation 1 - 2 puff inhalation Q4H PRN 11/12/22 aerosol inhaler shortness of breath or wheezing #1 unit compressor, for nebulizer #1 ea 11/16/22 fluticasone propionate 50 1 spray intranasal DAILY PRN nasal 11/16/22 mcg/actuation nasal congestion #36.4 mL spray,suspension (Flonase Allergy Relief) guaifenesin 600 mg tablet, 600 mg PO BID #20 tabs 11/16/22 extended release 12 hr ipratropium 0.5 mg-albuterol 3 mg 3 ml inhalation Q6H PRN wheezing; 11/16/22 (2.5 mg base)/3 mL nebulization SOB #90 mL soln budesonide-formoterol HFA 160 2 puff inhalation BID #10.2 grams 12/01/22 mcg-4.5 mcg/actuation aerosol inhaler (Symbicort) dextromethorphan polistirex 30 10 ml PO Q12H PRN cough #89 mL 12/01/22 mg/5 mL oral susp ext.release 12hr (Robitussin ER) Current Visit Medications: Current Medications Generic Name Dose Route Start Last Admin Trade Name Freq PRN Reason Stop Dose Admin Hyoscyamine Sulfate 0.125 mg 12/05/22 14:19 Hyoscyamine 0.125 Mg Sl/Oral/Chew SL 01/04/23 14:18 DIRECTED PRN Ringer's Solution 1,000 mls @ 80 mls/hr 12/06/22 06:00 12/06/22 10:43 IV 01/02/23 23:59 80 mls/hr INFUSION LAY Administration IV Miscellaneous Supplies 1 each 12/06/22 06:00 Iv Access IV 01/02/23 23:59 DIRECTED LAY Ondansetron HCl 4 mg 12/05/22 14:19 Ondansetron 4 Mg/2 Ml Vial IVP 01/04/23 14:18 Q4H PRN PRN Nausea / Vomiting Sodium Chloride 0 ml 12/06/22 06:00 Normal Saline Flush 10 Ml Syr IV 01/02/23 23:59 PRN PRN Sodium Chloride 0 ml 12/06/22 06:00 Normal Saline 10 Ml Vial IJ 01/02/23 23:59 DIRECTED PRN Sterile Water 0 ml 12/06/22 06:00 Water,Injection,Sterile 10 Ml Vial IJ 01/02/23 23:59 DIRECTED PRN [facility] Active Problems Active Problems: Problem Status Onset Code Encounter for screening colonoscopy Z12.11 Atrophic vaginitis 03/24/15 N95.2 Depressive disorder 09/11/13 F32.9 Diabetes mellitus 09/11/13 E11.9 Hypothyroidism 09/11/13 E03.9 Seizure disorder 09/11/13 G40.909 History of VIVIANA positive for HSV 09/11/13 Z86.19 Bilateral primary osteoarthritis of knee M17.0 Body mass index (BMI) of 40.1 to 44.9 in adult Z68.41 Essential hypertension I10 Low back pain M54.50 Asthma J45.909 Positive PPD R76.11 Urinary incontinence R32 Medical History Medical History Bipolar disorder Diverticulitis large intestine Per ED @ [facility], 10/2020 History of cervical dysplasia July 2021: LSIL/HPV+, benign colp H/o ASCUS & HPV in the past with colp in 2011 History of endometrial biopsy (02/08/20) DAVIS (obstructive sleep apnea) Ovarian cyst PTSD (post-traumatic stress disorder) Right knee DJD Synvisc: 10/29/22 03/24/22; 06/11/2021 Depo-medrol: 11/25/22 Yeast dermatitis Surgical History Surgical History Cholecystectomy (~2009) H/O: (~2002) History of left cataract surgery (~09/14/16) History of right cataract surgery (~08/24/16) S/P appendectomy (~1980) Tobacco Smoking/Tobacco Use Status: Former Tobacco Use Alcohol Alcohol Intake: never Substance Use Substance use: Never Substance use type: does not use Prental History History 2 Para Hx # Term Pregnancies 1 Multiple births Hx # Pregnancies Ectopic pregnancies AB induced Hx Number of Living Children AB spontaneous Vital Signs and Lab Results Vital Signs Most Recent Vital Signs in EMR: Most Recent Vital Signs Temp Pulse Resp BP Pulse Ox 36.7 C 82 17 117/76 98 12/06/22 10:13 12/06/22 10:13 12/06/22 10:13 12/06/22 10:13 12/06/22 10:13 Point of Care Results Point of Care Results: Finger Stick Blood Glucose 133 12/06/22 10:10 Lab Results Blood Type / Crossmatch: No Data to Display Complete Blood Count: No Data to Display Complete Metabolic Panel: Hemoglobin A1c 5.7 % (4.5-5.7) 11/08/22 10:29 Liver Function Panel: No Data to Display Coagulation Panel: No Data to Display Cardiac Panel: No Data to Display Arterial Blood Gas: No Data to Display Venous Blood Gas: No Data to Display Pancreas Panel: No Data to Display Thyroid Panel: No Data to Display Infectious Disease: Coronavirus (COVID-19)(PCR) Negative (Negative) 11/12/22 11:08 Coronavirus 2019 Source Nasal/Nares 11/12/22 11:08 Blood Cultures: No Data to Display Toxicology Panel: No Data to Display Panel: No Data to Display Imaging and Studies Imaging and Studies Study information below may be from another EMR and interpreted by another provider. Please see original notes in EMR for more complete details. EKG Summary: 05/05/2022: Exam: Resting ECG Reason for Exam: Shortness of Breath Patient Location: E HR:67 bpm ECG Measurements Heart Rate 67 AXIS [place] 180 P 26 QRSd 89 QRS 26 QT 385 T32 QTc 406 Conclusion Sinus rhythm...normal P axis, V-rate 60- 99 sinus rhythm, normal axis, normal intervals, non ischemic Stress Test Summary: 08/02/2016: Impressions: Normal study after maximal exercise. Reduced functional capacity. Anesthesia Assessment and Plan Anesthesia History Personal History: No History of Anesthesia Complications Family History: No Family History of Anesthesia Complications Exercise Tolerance Exercise Tolerance: Metabolic Equivalents>4 Pertinent Negatives Pertinent Negatives: No Symptoms of GERD, No Major Cardiovascular Symptoms or Complaints and No Major Pulmonary Symptoms or Complaints Cardiac & Pulmonary Exam Cardiac Exam: Normal S1/S2 Heart Sounds Pulmonary Exam: Clear Bilateral Breath Sounds Implantable Cardiac Device Does patient have a Pacemaker or an ICD?: No Airway Exam Known Difficult Airway: No Mallampati Class: 1 Mouth Opening: Normal (> 3cm) Thyromental Distance: Greater than 3 cm Neck Range of Motion: Full ROM Neck Circumference: Normal Teeth Condition: Normal Dentition ASA Classification ASA Score: ASA 2 Emergency Case?: No NPO Status NPO Status: NPO Clears >2 hours, Solids >8 hours Status Status: Not Per Patient and Negative HCG Anesthesia Plan Resuscitation Status: Full Code Anesthesia Technique: General Anesthesia Airway Planned: Natural Airway Monitors Used: Standard Monitors
[2022-12-06 10:52] VITALS: BMI 34.3
[2022-12-06] MEDS: Ondansetron 4 MG/2 ML VIAL IVP (11:38)
[2022-12-06 11:43] VITALS: BP 117/100; PULSE 66; RESP 16; TEMP 36.6; O2SAT 99
--- NOTE | 2022-12-06 12:18 | W.ANESPOSTOP ---
Postoperative Evaluation Date, Time and Location Date Performed: 12/06/22 Time Performed: 12:18 Patient Location: Day Surgery Unit Vital Signs Most Recent Imported Vital Signs: Most Recent Vital Signs Temp Pulse Resp BP Pulse Ox 36.6 C 66 16 117/100 H 99 12/06/22 11:43 12/06/22 11:43 12/06/22 11:43 12/06/22 11:43 12/06/22 11:43 Pain Score Most Recent Pain Score: Most Recent Pain Score Pain Level 0 12/06/22 11:43 Assessment Mental Status: Awake (Alert & Oriented to Patient Baseline) Airway and Respiratory Function: Patent airway with normal (patient baseline) respiratory exam Cardiovascular Function: Hemodynamically Stable Hydration Status: Adequately Hydrated Nausea & Vomiting: No Nausea or Vomiting Pain: Pt. Denies Any Pain Peripheral Nerve Block: Patient did not receive a nerve block
[2022-12-06 12:22] VITALS: BP 118/65; PULSE 87; RESP 18; TEMP 36.4; O2SAT 97
== END 2022-12-06 09:08 | disposition home or self-care (01) ==
PROVIDERS: PCP Family Medicine; Visit Provider Surgery
PROC: 0DJD8ZZ Inspection of Lower Intestinal Tract, Via Natural or Artificial Opening Endoscopic (ICD-10-PCS; CPT 45378; principal; 2022-12-06 12:00)
DX: Z12.11 Encounter for screening for malignant neoplasm of colon (principal); K57.30 Diverticulosis of large intestine without perforation or abscess without bleeding; K64.0 First degree hemorrhoids; E11.9 Type 2 diabetes mellitus without complications
CPT/HCPCS: 45378; 81025; J2001; J2405

== ENCOUNTER 2022-12-08 18:19 | Emergency (ER) | payer MEDICAID, SELFPAY ==
[2022-12-08] VITALS (12 sets, daily range): BP systolic 123–147; BP diastolic 50–97; PULSE 74–89; RESP 19–26; TEMP 36.7; O2SAT 99
--- NOTE | 2022-12-08 18:30 | DI.CT_ITS ---
Exam(s) CT ABDOMEN PELVIS W EXAM: CT ABDOMEN PELVIS W CLINICAL HISTORY: right sided abdominal pain, n/v TECHNIQUE: Imaging Protocol: Axial computed tomography images with coronal and sagittal reformatted images were created and reviewed CONTRAST MATERIAL: Intravenous: Omnipaque 350 Contrast volume:100 mL Oral: No COMPARISON: CT CT ABDOMEN PELVIS W from 08/31/2022 FINDINGS: ABDOMEN: Lung Bases: Normal where visualized. Liver: Normal density. There is a stable cyst in the inferior aspect of the right lobe of the liver. No follow-up is recommended. No suspicious hepatic masses are seen. Portal, Superior Mesenteric, and Splenic Veins: Unremarkable. Gallbladder and Biliary Tract: Status post cholecystectomy. No significant biliary ductal dilatation . Pancreas: Normal density, no abnormal calcifications or inflammatory process. Spleen: Normal. Adrenals: No masses seen. Kidneys: Normal size, contour and axis. There is no nephrolithiasis. There is a stable right renal c yst. No follow-up is recommended. There is mild stable bilateral hydroureteronephrosis. Abdominal Aorta: Abdominal portion non-dilated. Bowel: There are diverticula in the colon, but no evidence of acute diverticulitis. There is no evid ence of bowel obstruction or bowel wall thickening. There is no evidence of appendicitis. Peritoneal Cavity: No ascites, collection or mesenteric inflammatory response. No free air. Lymph Nodes: Within normal limits. Bones: Within normal limits for the patient's age. Soft Tissues: There is a small fat containing umbilical hernia again seen. PELVIS: Bladder: The urinary bladder is prominently distended. No bladder wall thickening or intraluminal ma ss is seen. Reproductive Organs: Unremarkable as visualized. Lymph Nodes: Within normal limits. Bones: Within normal limits for the patient's age. IMPRESSION: 1. Distended urinary bladder with mild bilateral hydroureteronephrosis which is similar to the prior examination. No intraluminal mass or urinary bladder wall thickening. No nephrolithiasis. 2. Stable findings in the abdomen and pelvis. RADIATION DOSE DELIVERED: Total DLP DATA REPOSITORY: All CT scans at this facility are submitted to the National Radiology Data Registry (NRDR) Dose Index Registry (DIR) with the [employer] ([employer]). RADIATION OPTIMIZATION: All CT scans at this facility use at least one of these dose optimization te chniques: automated exposure control; mA and/or kV adjustment per patient size (includes targeted exa ms where dose is matched to clinical indication); or iterative reconstruction.
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
[2022-12-08] MEDS: Normal Saline 1,000 ML 1000 ML IV (18:47)
[2022-12-08] MEDS: Droperidol 5 MG/2 ML VIAL 2.5 MG IVP (18:47)
[2022-12-08 18:56] LABS: Abs Immature Grans 0.05 10^3/uL (0.0-0.06); Absolute Basophil Count 0.04 10^3/uL (0.0-0.2); Absolute Eosinophil Count 0.16 10^3/uL (0.0-0.7); Absolute Lymphocyte Count 3.27 10^3/uL (1.2-3.4); Absolute Monocyte Count 1.07 10^3/uL (0.1-0.8); Absolute Neutrophil Count 5.39 10^3/uL (1.2-6.7); Basophils % 0.4; Eosinophils % 1.6; HCT 34.3 % (36.0-46.0); HGB 12.1 g/dL (11.2-15.7); Immature Grans % 0.5; Lymphocytes % 32.8; MCH 32.5 pg (27.0-33.0); MCHC 35.3 % (32.0-36.0); MCV 92 fL (80-95); MPV 8.6 fL (8.0-11.0); Monocytes % 10.7; Platelet Count 278 10^3/uL (130-400); RBC 3.72 10^6/uL (3.93-5.22); RDW 11.6 % (11.7-14.6); RDW-SD 38.6 fL; WBC 9.98 10^3/uL (4.4-10.8)
[2022-12-08 19:09] LABS: INR 0.9 (0.9-1.1); PTT Activated 25.5 sec (21.5-31.9); Prothrombin Time 9.5 sec (9.3-11.0)
[2022-12-08 19:14] LABS: ALT 24 U/L (14-59); AST 11 U/L (15-37); Albumin 3.3 g/dL (3.4-5.0); Alkaline Phosphatase 76 U/L (46-116); Anion Gap 5.8 mmol/L (3-11); BUN 4 mg/dL (7-18); Bilirubin, Total 0.3 mg/dL (0.2-1.0); CO2 29.2 mmol/L (21.0-32.0); CREATININE 0.6 mg/dL (0.55-1.02); Calcium 8.7 mg/dL (8.5-10.1); Chloride 95 mmol/L (98-107); Estimated GFR 107.93 (mL/min/1.73m2); Glucose 107 mg/dL (74-106); Lipase 45 U/L (16-77); Magnesium 1.7 mg/dL (1.8-2.4); Sodium 130 mmol/L (136-145); Total Protein 6.5 g/dL (6.4-8.2)
[2022-12-08 19:17] LABS: Potassium 2.9 mmol/L (3.5-5.1)
[2022-12-08] MEDS: Normal Saline Flush 10 ML SYR IVP (19:32)
[2022-12-08] MEDS: Normal Saline - Diluent 50 ML VIAL IJ (19:33)
[2022-12-08] MEDS: Omnipaque 350 MG/ML 100 ML BTL IJ (19:33)
[2022-12-08] MEDS: POTASSIUM CHLORIDE 10 MEQ/100 ML BAG 100 MEQ IVPB (19:40)
[2022-12-08] MEDS: MAGNESIUM SULFATE 1 GM/100 ML BAG IVPB (19:40)
--- NOTE | 2022-12-08 20:16 | DI.VRAD_ITS ---
PROCEDURE INFORMATION: Exam: CT Abdomen And Pelvis With Contrast Exam date and time: 12/08/2022 7:36 PM Age: 52 years old Clinical indication: Localized; Right; Prior surgery; Surgery date: 3-7 days post-operative; Surgery type: Colonoscopy on Tuesday, pain sense; Gallbladder \T\ appendix 6+ mo. Ago; Patient HX: RT sided abdominal pain, n/v TECHNIQUE: Imaging protocol: Computed tomography of the abdomen and pelvis with contrast. Contrast material: OMNIPAQUE 350; Contrast volume: 100 ml; Contrast route: INTRAVENOUS (IV); COMPARISON: CT ABDOMEN PELVIS W 08/31/2022 1:45 PM FINDINGS: Liver: Sub cm hypodensity in the posterior right lobe of the liver, too small to characterize, likely a benign cyst or hemangioma. Gallbladder and bile ducts: Prior cholecystectomy. No biliary duct dilatation. Pancreas: Normal. No ductal dilation. Spleen: Normal. No splenomegaly. Adrenal glands: Normal. No mass. Kidneys and ureters: Benign right renal cyst. Mild bilateral hydroureteronephrosis. No urolithiasis. Stomach and bowel: Unremarkable. No obstruction. No mucosal thickening. Appendix: No evidence of appendicitis. Intraperitoneal space: Unremarkable. No free air. No significant fluid collection. Vasculature: Pelvic phleboliths. Lymph nodes: Unremarkable. No enlarged lymph nodes. Urinary bladder: Marked urinary bladder distension. . High Reproductive: Unremarkable as visualized. Bones/joints: Unremarkable. No acute fracture. Soft tissues: Tiny fat filled umbilical hernia. IMPRESSION: 1. Distended urinary bladder with mild bilateral hydroureteronephrosis, similar to prior exams. 2. Benign right renal cyst. No further imaging required. 3. Benign hepatic hypodensity. No further imaging required. Dictated and Authenticated by: Gaudencio Starr MD. Ordering:YOSHI Hameed MD
[2022-12-08 20:27] LABS: Bilirubin Negative (Negative); Blood Negative (Negative); Clarity Clear (Clear); Glucose Negative (Negative); Ketones Negative (Negative); Leukocyte Esterase Negative (Negative); Nitrite Negative (Negative); Specific Gravity <= 1.005 (1.005-1.025); Urobilinogen 0.2 mg/dL (Up to 0.2)
[2022-12-08] MEDS: Potassium Chloride 10 MEQ CAPCR 40 MEQ PO (20:50)
--- NOTE | 2022-12-08 23:14 | NUR.NOTE ---
Referral faxed to [facility] Urology to f/u LISA for urinary retention.Nursing Note:
== END 2022-12-08 21:16 | disposition home or self-care (01) ==
PROVIDERS: Emergency Provider Emergency Medicine; PCP Family Medicine
DX: R10.11 Right upper quadrant pain (principal); R33.9 Retention of urine, unspecified; E87.6 Hypokalemia; E83.42 Hypomagnesemia; R11.10 Vomiting, unspecified; Z90.49 Acquired absence of other specified parts of digestive tract
CPT/HCPCS: 36415; 80053; 83690; 96361; 96365; 96368; 96375; 99285; 74177; 81003; 83735; 85025; 85610; 85730; 99283; J1790; J3475; J3480; J3490

== ENCOUNTER 2022-12-10 14:53 | Outpatient (CLI) | payer MEDICAID, SELFPAY ==
[2022-12-10 10:47] LABS: Abs Immature Grans 0.04 10^3/uL (0.0-0.06); Absolute Basophil Count 0.03 10^3/uL (0.0-0.2); Absolute Eosinophil Count 0.07 10^3/uL (0.0-0.7); Absolute Lymphocyte Count 2.14 10^3/uL (1.2-3.4); Absolute Monocyte Count 0.74 10^3/uL (0.1-0.8); Basophils % 0.3; Eosinophils % 0.8; HCT 39.5 % (36.0-46.0); HGB 13.6 g/dL (11.2-15.7); Immature Grans % 0.5; Lymphocytes % 24.8; MCH 32.2 pg (27.0-33.0); MCHC 34.4 % (32.0-36.0); MCV 94 fL (80-95); MPV 8.5 fL (8.0-11.0); Monocytes % 8.6; Platelet Count 301 10^3/uL (130-400); RBC 4.22 10^6/uL (3.93-5.22); RDW 11.9 % (11.7-14.6); RDW-SD 40.5 fL; WBC 8.62 10^3/uL (4.4-10.8)
[2022-12-10 11:01] LABS: Anion Gap 4.8 mmol/L (3-11); BUN 7 mg/dL (7-18); CO2 30.2 mmol/L (21.0-32.0); CREATININE 0.6 mg/dL (0.55-1.02); Calcium 9.6 mg/dL (8.5-10.1); Chloride 105 mmol/L (98-107); Estimated GFR 107.93 (mL/min/1.73m2); Glucose 102 mg/dL (74-106); Magnesium 2.2 mg/dL (1.8-2.4); Potassium 4.1 mmol/L (3.5-5.1); Sodium 140 mmol/L (136-145)
== END 2022-12-10 14:54 | disposition home or self-care (01) ==
LOC: LBO 14:53
PROVIDERS: Student in an Organized Health Care Education/Training Program; PCP Family Medicine; Visit Provider Nurse Practitioner Family
DX: E11.9 Type 2 diabetes mellitus without complications (principal); E03.9 Hypothyroidism, unspecified; E83.42 Hypomagnesemia; E87.6 Hypokalemia; J18.9 Pneumonia, unspecified organism
CPT/HCPCS: 36415; 80048; 83735; 85025

== ENCOUNTER 2022-12-17 12:32 | Outpatient (CLI) | payer MEDICAID, SELFPAY ==
--- NOTE | 2022-12-17 12:15 | DI.US_ITS ---
Exam(s) US RENAL EXAM: US RENAL CLINICAL HISTORY: hydronephrosis, urinary retention, R33.9. TECHNIQUE: Chou scale, color and spectral Doppler were used. COMPARISON: No exams were available for comparison FINDINGS: Renal size in cm: Right: 11.2. Left: 11.7. Echogenicity: Normal. Hydronephrosis: Mild left hydronephrosis. Cyst or mass: No. Nephrolithiasis: No. Other findings: None. Bladder:Normal. Ureteral jets: Right: Visualized and unremarkable. Left: Visualized and unremarkable. Prevoid vol:727 cc Postvoid vol:218 cc Renal color flow: Symmetric and within normal limits. IMPRESSION: 1. Mild left hydronephrosis. 2. Large postvoid urinary bladder volume. DATA REPOSITORY:
--- OUTSIDE RECORDS SUMMARY | 2022-12-17 12:43 | XMS_ITS | Continuity of Care Document ---
Author Name Unknown Organization [facility] Address [address] [place] [address] Care Team Providers Care Negative Turner Name Role Phone GIOVANI BECERRA DO Primary Care Physician Encounter [facility] NBR [id number] Date(s): 12/15/22 - 12/15/22 [facility] [address] [place] [address] us Patient Care team information Care Team Personnel Name: GIOVANI BECERRA DO Position: No Access Member Role: Primary Care Physician Address: Address: [address] [id number]
== END 2022-12-17 12:52 ==
LOC: DI 12:32
PROVIDERS: PCP Family Medicine; Visit Provider Nurse Practitioner Gerontology
DX: N13.39 Other hydronephrosis; R33.9 Retention of urine, unspecified
CPT/HCPCS: 76770

== ENCOUNTER 2022-12-27 18:26 | Outpatient (REF) | payer MEDICAID, SELFPAY | END 2022-12-27 18:27 | disposition home or self-care (01) | LOC: NCHCN 18:26 | PROVIDERS: PCP Family Medicine; Visit Provider Family Medicine | DX: J02.9 Acute pharyngitis, unspecified (principal) | CPT/HCPCS: 87070 ==

== ENCOUNTER 2022-12-28 14:25 | Emergency (ER) | payer MEDICAID, SELFPAY ==
[2022-12-28 14:29] VITALS: BP 125/62; PULSE 84; RESP 16; TEMP 37.2; O2SAT 97
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
[2022-12-28 15:04] LABS: Abs Immature Grans 0.04 10^3/uL (0.0-0.06); Absolute Eosinophil Count 0.09 10^3/uL (0.0-0.7); Absolute Monocyte Count 1.21 10^3/uL (0.1-0.8); Basophils % 0.2; Eosinophils % 0.7; HCT 39.2 % (36.0-46.0); HGB 13.2 g/dL (11.2-15.7); Immature Grans % 0.3; Lymphocytes % 19.3; MCHC 33.7 % (32.0-36.0); MCV 95 fL (80-95); MPV 8.4 fL (8.0-11.0); Monocytes % 9.7; Neutrophils % 69.8; Platelet Count 286 10^3/uL (130-400); RBC 4.12 10^6/uL (3.93-5.22); RDW 11.9 % (11.7-14.6); RDW-SD 41.5 fL; WBC 12.45 10^3/uL (4.4-10.8)
[2022-12-28 15:05] LABS: Absolute Basophil Count 0.02 10^3/uL (0.0-0.2); Absolute Neutrophil Count 8.69 10^3/uL (1.2-6.7)
[2022-12-28 15:15] LABS: Magnesium 2.1 mg/dL (1.8-2.4)
[2022-12-28] MEDS: ACETAMINOPHEN 1,000 MG/100 ML BTL 400 MG IVPB (15:18)
[2022-12-28 15:23] LABS: ALT 26 U/L (14-59); AST 11 U/L (15-37); Albumin 3.4 g/dL (3.4-5.0); Alkaline Phosphatase 85 U/L (46-116); BUN 7 mg/dL (7-18); Bilirubin, Total 0.3 mg/dL (0.2-1.0); CREATININE 0.8 mg/dL (0.55-1.02); Calcium 9.7 mg/dL (8.5-10.1); Chloride 103 mmol/L (98-107); Glucose 129 mg/dL (74-106); Potassium 3.7 mmol/L (3.5-5.1); Sodium 138 mmol/L (136-145); Total Protein 7.2 g/dL (6.4-8.2)
[2022-12-28 15:30] LABS: Bilirubin Negative (Negative); Blood Negative (Negative); Clarity Clear (Clear); Glucose Negative (Negative); Ketones Negative (Negative); Leukocyte Esterase Small (Negative); Nitrite Negative (Negative); Specific Gravity <= 1.005 (1.005-1.025); Urobilinogen 0.2 mg/dL (Up to 0.2)
[2022-12-28 15:40] LABS: Bacteria Few HPF (Negative); C & S Indicated? Yes; Casts Negative LPF (Negative); Crystals Negative HPF (Negative); Epithelial Cells Rare HPF (Negative); Mucus Negative (Negative); RBC 0-2 HPF (0-2)
[2022-12-28 16:28] LABS: Mono Screening Negative (Negative)
== END 2022-12-28 17:04 | disposition home or self-care (01) ==
PROVIDERS: Emergency Provider Emergency Medicine; PCP Family Medicine
DX: R10.9 Unspecified abdominal pain (principal); R33.9 Retention of urine, unspecified; J02.9 Acute pharyngitis, unspecified; E11.9 Type 2 diabetes mellitus without complications; E03.9 Hypothyroidism, unspecified; I10 Essential (primary) hypertension; Z87.891 Personal history of nicotine dependence
CPT/HCPCS: 51702; 80053; 83690; 87077; 96365; 99283; 81003; 81015; 83605; 83735; 85025; 86308; 87086; 87186; J0131

== ENCOUNTER 2022-12-29 08:59 | Emergency (ER) | payer MEDICAID, SELFPAY ==
[2022-12-29 09:12] VITALS: BP 140/79; PULSE 82; RESP 16; TEMP 37; O2SAT 96
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
== END 2022-12-29 10:08 | disposition home or self-care (01) ==
PROVIDERS: Emergency Provider Emergency Medicine; PCP Family Medicine
DX: T83.038A Leakage of other urinary catheter, initial encounter (principal); R33.9 Retention of urine, unspecified
CPT/HCPCS: 99281; 99282

== ENCOUNTER 2022-12-29 18:27 | Emergency (ER) | payer MEDICAID, SELFPAY ==
[2022-12-29 18:23] VITALS: BP 154/87; PULSE 89; RESP 18; TEMP 36.6; O2SAT 96
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
[2022-12-29 19:14] LABS: Abs Immature Grans 0.06 10^3/uL (0.0-0.06); Absolute Lymphocyte Count 3.11 10^3/uL (1.2-3.4); Absolute Monocyte Count 1.23 10^3/uL (0.1-0.8); Absolute Neutrophil Count 7.99 10^3/uL (1.2-6.7); Basophils % 0.2; Eosinophils % 0.2; HCT 38.4 % (36.0-46.0); HGB 13.1 g/dL (11.2-15.7); Immature Grans % 0.5; MCH 32.2 pg (27.0-33.0); MCHC 34.1 % (32.0-36.0); MCV 94 fL (80-95); MPV 8.6 fL (8.0-11.0); Monocytes % 9.9; Neutrophils % 64.2; Platelet Count 333 10^3/uL (130-400); RBC 4.07 10^6/uL (3.93-5.22); RDW-SD 41.6 fL; WBC 12.45 10^3/uL (4.4-10.8)
[2022-12-29 19:21] LABS: Absolute Basophil Count 0.02 10^3/uL (0.0-0.2); Absolute Eosinophil Count 0.02 10^3/uL (0.0-0.7)
[2022-12-29 19:39] LABS: ALT 24 U/L (14-59); AST 10 U/L (15-37); Albumin 3.5 g/dL (3.4-5.0); Alkaline Phosphatase 81 U/L (46-116); Anion Gap 9.3 mmol/L (3-11); BUN 5 mg/dL (7-18); Bilirubin, Total 0.3 mg/dL (0.2-1.0); CO2 28.7 mmol/L (21.0-32.0); CREATININE 0.5 mg/dL (0.55-1.02); Calcium 9.7 mg/dL (8.5-10.1); Chloride 105 mmol/L (98-107); Estimated GFR 112.78 (mL/min/1.73m2); Glucose 101 mg/dL (74-106); Potassium 3.3 mmol/L (3.5-5.1); Sodium 143 mmol/L (136-145); TSH (W/Ref FT4) 3.88 uIU/mL (0.36-3.74); Total Protein 7.6 g/dL (6.4-8.2)
[2022-12-29 19:40] LABS: ETHANOL BLOOD < 3.0 mg/dL (<10)
[2022-12-29 19:41] LABS: Salicylate < 2.8 mg/dL (<2.8)
[2022-12-29 19:43] LABS: Acetaminophen < 2 ug/mL (10-30)
[2022-12-29 19:56] LABS: FREE T4 1.42 ng/dL (0.76-1.46)
[2022-12-29] MEDS: traZODone 100 MG TAB 150 MG PO (21:57)
[2022-12-29 22:23] LABS: Bilirubin Negative (Negative); Blood Trace-lysed (Negative); Clarity Clear (Clear); Glucose Negative (Negative); Ketones Negative (Negative); Leukocyte Esterase Moderate (Negative); Nitrite Negative (Negative); Urobilinogen 0.2 mg/dL (Up to 0.2)
[2022-12-29 22:33] LABS: Bacteria Rare HPF (Negative); C & S Indicated? Yes; Crystals Negative HPF (Negative); Epithelial Cells Few HPF (Negative); Mucus Negative (Negative); RBC 0-2 HPF (0-2)
--- NOTE | 2022-12-29 22:34 | NUR.NOTE ---
Nursing Note: ordered a straight cath for the patinet due to her urinary retention. The patient also does not want and indwelling, she states that it is irritating to her and that her last one was leaking. Pt is very anxious about her urinary retention. RN drained 1300mL of urine out of her bladder. Clear light yellow urine was drained
[2022-12-29 23:27] LABS: *AMPHETAMINES SCREEN URINE Negative (Negative); *BARBITURATES SCREEN URINE Negative (Negative); *BENZODIAZEPINES SCREEN URINE Negative (Negative); Cannabinoids THC Negative (Negative); Cocaine Screen,Urine Negative (Negative); METHADONE URINE SCREEN Negative (Negative); OPIATES URINE SCREEN Negative (Negative); Tricyclic Antidepressants Negative (Negative)
--- NOTE | 2022-12-30 08:36 | CMSP_ITS ---
Date of service: 12/30/22 Time of Service: 08:36 Care Management Safety Plan Status Status: Voluntary Reason for Wait Reason for Wait: Inpatient Admission Safety Plan Safety Plan: VOLUNTARY FOR INPATIENT PSYCHIATRIC STABILIZATION.? Patient is appropriate in all interactions since arriving at [facility]; Pt has demonstrated appropriate coping and communication skills, has articulated his or her needs and concerns and is fully engaged during staff interactions. Safety plan has been established with patient, and care team, to adhere to patient goals, identify restrictions based on behavioral status, address nutrition, and determine allowed personal belongings, tools for hygiene and personal care. Determine level of activity including ambulation, level of supervision, visitors, and determine privileges based on behaviors and level of engagement by pt. SAFETY PLAN: 1. Will remain on suicide precautions. In Paper Clothes. 2. Will remain in room under direct supervision of one-on-one staff at all times provided by [employer], WINDOWS LAPTOP TECHNICIAN, BRISKET PULLER spot machine operator. 3. May have paper cups, plates, finger foods as well as a cardboard spoon with which to eat meals. 4. Follow [facility] Management of the Admitted Behavioral Health Patient policy. 5. Comfort bath system only, shower permitted with escort at RN discretion. 6. No personal belongings-soft items permitted at RN discretion. 7. Visitors-none at this time. 8. Activities: soft cart items, music tablet, television and other activities at RN discretion. 9.? Bathroom privileges with escort in the ED, available in room without limitation on M/S. 10. Phone: May use hospital cordless phone at RN discretion. 11. Due to VOLUNTARY status, if patient wishes to leave [facility], staff will contact [facility] Crisis Screener ([phone]) and On-Call Road Packer Operator ([phone]) as soon as possible. In the event of elopement, notify [place] [employer] ([phone]). Patient is currently voluntarily at [facility] and seeking inpatient admission when a bed becomes available. [facility] Frontline Miter Grinder Operator will continue seeking placement. Please contact the Collections Assistant Road Packer Operator ([phone]) and [facility] Miter Grinder Operator ([phone]) for any needed changes in the Safety Plan. Safety plan has been provided to interdepartmental care team.
--- NOTE | 2022-12-30 10:15 | W.EDPROG ---
Date of service: 12/30/22 Time of Service: 10:15 Medical Decision Making Patient was initially seen by me last night, and then signed out to my colleague Dr. Matson, and then signed back out to me this morning. Patient remained stable throughout the night. No interventions given. Patient still remains medically cleared. Fosfomycin was given for UTI, which I do not feel is causing her current suicidal symptomatology. Patient remained stable otherwise. We are seeking placement at this time. 4:15 PM Patient has done well throughout the day. Patient was scheduled to have straight cath training at home, however through shared decision-making process we elected to place a Hutchison at this time so that there are not multiple procedures happening for the patient at this time. [facility] did agree to accept the patient. I discussed the case with Dr. Payne. She agrees with the assessment and plan. I have extensively reviewed the treatment plan with the patient. I have addressed all patient concerns at this time. I have also discussed the plan with the admitting physician and they agree with the current assessment and plan and have agreed to assume responsibility for the patient. All parties demonstrate verbal understanding and agreement with our assessment and plan at this time. The documentation in this chart was dictated using Prosper dictation software. Please excuse any dictation errors. At time of transfer the patient was reassessed and continued to demonstrate No signs of acute respiratory distress requiring intubation, hemodynamic instability requiring pressor support, or rapidly declining mental status. Discharge Plan Disposition Patient Disposition: Psychiatric Hospital/Unit Specific Psychiatric Facility: [facility] Discharge Details Chief Complaint: PsychEval Clinical Impression: At risk for suicide Primary Care Provider: Brooks Hamm ED Provider: Yusuf Carney Home Meds and New Rx's Prescriptions: No Action acetylcysteine [NAC] 600 mg capsule 1,200 mg PO BID Patient Comments: pt states not taking not on med list lamotrigine 25 mg tablet 25 mg PO DAILY famotidine 40 mg tablet 40 mg PO DAILY Qty: 90 3RF pantoprazole 40 mg tablet,delayed release (DR/EC) 40 mg PO DAILY Qty: 90 3RF fluticasone propionate [Flonase Allergy Relief] 50 mcg/actuation spray,suspension 1 spray ONEAL DAILY PRN (Reason: nasal congestion) Qty: 36.4 1RF guaifenesin 600 mg tablet extended release 12hr 600 mg PO BID Qty: 20 1RF Rx Instructions: As best covered -- medical necessity ipratropium-albuterol 0.5 mg-3 mg(2.5 mg base)/3 mL solution for nebulization 3 ml inhalation Q6H PRN (Reason: wheezing; SOB) Qty: 90 1RF (DME) compressor, for nebulizer Device See Rx Instructions .ROUTE .MEDSUPPLY Qty: 1 0RF Rx Instructions: QID for asthma exacerbation; Daily PRN Wheezing budesonide-formoterol [Symbicort] 160-4.5 mcg/actuation HFA aerosol inhaler 2 puff inhalation BID Qty: 10.2 6RF dextromethorphan polistirex [Robitussin ER] 30 mg/5 mL suspension,extended rel 12 hr 10 ml PO Q12H PRN (Reason: cough) Qty: 89 0RF Patient Comments: pt states not taking (DME) catheter 14 Fr misc See Rx Instructions .Route Qty: 90 12RF Rx Instructions: 14 fr female catheter 3x day diclofenac sodium [Arthritis Pain (diclofenac)] 1 % gel 2 g topical QID Rx Instructions: apply to single elbow, wrist or hand; for hand includes palm/fingers/back of hand albuterol sulfate 90 mcg/actuation HFA aerosol inhaler 1 - 2 puff inhalation Q4H PRN (Reason: shortness of breath or wheezing) Qty: 1 3RF Rx Instructions: Dispense brand of albuterol inhaler covered by patient's insurance prednisone 20 mg tablet 20 mg PO DAILY 5 Days Qty: 5 0RF Patient Comments: was a former course, pt not taking anymore calcium carbonate-vitamin D3 [Calcium 600 + D(3)] 600 mg(1,500mg) -200 unit tablet 1 tab PO BID Qty: 180 3RF (DME) lancets [FreeStyle Lancets] 28 gauge misc See Rx Instructions .ROUTE .MEDSUPPLY Qty: 100 3RF Rx Instructions: Use once a day for goal A1c < 7; Dx E11.9 medroxyprogesterone 150 mg/mL syringe 150 mg IM [id number] Qty: 1 4RF levothyroxine [Synthroid] 88 mcg tablet 88 mcg PO DAILY Qty: 90 3RF metformin 500 mg Tablet 500 mg PO DAILY bupropion HCl 150 mg Tablet Extended Release 24 Hr 150 mg PO QAM pramoxine [Proctofoam] 1 % foam 1 applic OR QID Qty: 15 0RF ondansetron HCl 8 mg tablet 8 mg PO Q12H PRNQty: 6 0RF Rx Instructions: Take as needed for postprocedural nausea or vomiting. ondansetron 4 mg tablet,disintegrating 4 mg PO Q8H PRN (Reason: nausea and vomiting) Qty: 30 0RF Acidophilus Tablet 1 tab PO DAILY trazodone 100 mg tablet 150 mg PO DAILY
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
[2022-12-30] MEDS: buPROPion-XL 150 MG TABCR PO (13:25)
[2022-12-30] MEDS: lamoTRIgine 25 MG TAB PO (13:25)
[2022-12-30] MEDS: Ondansetron O.D.T. 4 MG TABEF PO (13:26)
[2022-12-30] MEDS: metFORMIN C.R. 500 MG TABCR PO (13:26)
[2022-12-30] MEDS: Levothyroxine 88 MCG TAB PO (13:26)
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
--- NOTE | 2022-12-30 16:24 | PDOC.CMPRO ---
Date of service: 12/30/22 Time of Service: 16:24 Care Management Progress Note Progress Note Text Progress Note Text: DISPOSITION: José Miguel is accepted by the [facility] for a voluntary psychiatric placement for mood stabilization. She will follow up with her PCP, [facility], and plan of care as instructed upon discharge from the [facility]. She is transported to [place] by [facility]. MH Services (Omit if N/A) Current MH Services: [facility] Status Status: Voluntary Reason for Wait: Inpatient Admission ([facility])
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
== END 2022-12-30 17:13 ==
PROVIDERS: Emergency Provider Student in an Organized Health Care Education/Training Program; PCP Family Medicine
DX: R45.850 Homicidal ideations (principal); R45.851 Suicidal ideations; F32.A Depression, unspecified
CPT/HCPCS: 51702; 80053; 80307; 81025; 99285; 80320; 80329; 81003; 81015; 84439; 84443; 85025; 87086

== ENCOUNTER 2023-01-18 17:48 | Outpatient (REF) | payer MEDICAID, SELFPAY | END 2023-01-18 17:49 | disposition home or self-care (01) | LOC: LBN 17:48 | PROVIDERS: PCP Family Medicine; Visit Provider Family Medicine | DX: R33.9 Retention of urine, unspecified (principal); R10.2 Pelvic and perineal pain | CPT/HCPCS: 87077; 87086; 87186 ==

== ENCOUNTER 2023-01-19 17:46 | Outpatient (REF) | payer MEDICAID, SELFPAY ==
[2023-01-20 14:30] LABS: BUN 7 mg/dL (7-18); CREATININE 0.6 mg/dL (0.55-1.02); Calcium 9.2 mg/dL (8.5-10.1); Estimated GFR 107.93 (mL/min/1.73m2); Glucose 105 mg/dL (74-106)
[2023-01-20 14:31] LABS: Chloride 102 mmol/L (98-107); Potassium 3.6 mmol/L (3.5-5.1); Sodium 139 mmol/L (136-145)
== END 2023-01-19 17:47 | disposition home or self-care (01) ==
LOC: LBN 17:46
PROVIDERS: PCP Family Medicine; Visit Provider Family Medicine
DX: R33.9 Retention of urine, unspecified (principal); R10.2 Pelvic and perineal pain
CPT/HCPCS: 80048; 83735

== ENCOUNTER 2023-02-03 18:17 | Outpatient (REF) | payer MEDICAID, SELFPAY ==
[2023-02-03 19:01] LABS: Bilirubin Negative (Negative); Blood Negative (Negative); Clarity Clear (Clear); Glucose Negative (Negative); Ketones Negative (Negative); Leukocyte Esterase Negative (Negative); Nitrite Negative (Negative); Urobilinogen 0.2 mg/dL (Up to 0.2)
== END 2023-02-03 18:18 | disposition home or self-care (01) ==
LOC: NCHCN 18:17
PROVIDERS: PCP Family Medicine; Visit Provider Family Medicine
DX: N39.0 Urinary tract infection, site not specified (principal)
CPT/HCPCS: 81003

== ENCOUNTER 2023-02-08 15:42 | Outpatient (REF) | payer MEDICAID, SELFPAY | END 2023-02-08 15:43 | disposition home or self-care (01) | LOC: LBN 15:42 | PROVIDERS: PCP Family Medicine; Visit Provider Family Medicine | DX: R30.0 Dysuria (principal) | CPT/HCPCS: 87077; 87086; 87186 ==

== ENCOUNTER 2023-02-19 19:03 | Emergency (ER) | payer MEDICAID, SELFPAY ==
[2023-02-19 19:13] VITALS: BP 156/84; PULSE 76; RESP 16; TEMP 36.7; O2SAT 98
--- NOTE | 2023-02-19 20:00 | DI.CT_ITS ---
Exam(s) CT ABDOMEN PELVIS W EXAM: CT ABDOMEN PELVIS W CLINICAL HISTORY: abdominal pain, vomiting. TECHNIQUE: Imaging Protocol: Axial computed tomography images with coronal and sagittal reformatted images were created and reviewed CONTRAST MATERIAL: Intravenous: Omnipaque-350 100cc Oral: None COMPARISON: CT CT ABDOMEN PELVIS W from 12/08/2022 FINDINGS: VISUALIZED LUNG BASES: No nodules nor pleural effusions evident. ABDOMEN: There is no ascites. LIVER: Small benign cyst in the right hepatic lobe is again noted. No ominous focal hepatic lesions nor dilated intrahepatic ducts. GALLBLADDER/BILIARY: Gallbladder again noted be surgically absent. CBD is not dilated. PANCREAS: No evidence of pancreatic mass nor dilatation of the pancreatic duct. SPLEEN: Spleen is not enlarged. No obvious intrasplenic lesions. Splenic and portal veins are paten t. ADRENALS: There are no significant adrenal masses. KIDNEYS:Small benign cyst in the right kidney noted. Does not require further workup. There is mild dilatation of both collecting systems, right more so than left and this is related to grossly disten ded urinary bladder, as was previously the case. No solid renal masses. No calculi evident.. ABDOMINAL AORTA: Abdominal aorta is not enlarged. LYMPH NODES:There is no retroperitoneal nor paraaortic adenopathy. ABDOMINAL WALL: No evidence of significant anterior abdominal wall nor inguinal hernia. GI: There is no evidence of bowel obstruction, free air, nor abscess. PELVIS: GI: No evidence of appendicitis.No evidence of sigmoid diverticulitis. LYMPH NODES: There is no intrapelvic nor inguinal adenopathy. REPRODUCTIVE: Uterus adnexal regions age-appropriate. No abnormal adnexal masses. URINARY BLADDER: Grossly distended. No masses nor calculi evident. OSSEOUS: No fractures and no significant osseous lesions. IMPRESSION: 1. Mild right greater than left hydronephrosis which is most likely related to reflux from the extrem pepper distended urinary bladder, similar to the prior recent study of 12/08/2022. There is no obvious mass in the urinary bladder. No obstructing calculi. 2. Gallbladder surgically absent. Biliary tree not dilated. 3. Other findings as above RADIATION DOSE DELIVERED: 1,022.73mGy.cm Total DLP DATA REPOSITORY: All CT scans at this facility are submitted to the National Radiology Data Registry (NRDR) Dose Index Registry (DIR) with the [employer] (A[employer]). RADIATION OPTIMIZATION: All CT scans at this facility use at least one of these dose optimization te chniques: automated exposure control; mA and/or kV adjustment per patient size (includes targeted exa ms where dose is matched to clinical indication); or iterative reconstruction.
--- NOTE | 2023-02-19 20:00 | RT.EKG_ITS ---
APPROVED REPORT Exam: Resting ECG Reason for Exam: weakness, pain Patient Location: E HR:80 bpm ECG Measurements Heart Rate 80 AXIS MA 161 P -86 QRSd 84 QRS 19 QT 367 T -42 QTc 423 Conclusion Ectopic atrial rhythm...abnormal P axis, normal rate Low voltage, extremity leads...all extremity leads <0.5mV
[2023-02-19] MEDS: Lactated Ringers 1,000 ML 1000 ML IV (20:28)
[2023-02-19] MEDS: FAMOTIDINE 20 MG in Normal Saline 100 ML 400 MG IVPB (20:30)
[2023-02-19 20:31] LABS: Abs Immature Grans 0.02 10^3/uL (0.0-0.06); Absolute Basophil Count 0.05 10^3/uL (0.0-0.2); Absolute Eosinophil Count 0.23 10^3/uL (0.0-0.7); Absolute Lymphocyte Count 2.69 10^3/uL (1.2-3.4); Absolute Monocyte Count 0.87 10^3/uL (0.1-0.8); Absolute Neutrophil Count 4.02 10^3/uL (1.2-6.7); Basophils % 0.6; Eosinophils % 2.9; HCT 39.9 % (36.0-46.0); HGB 13.6 g/dL (11.2-15.7); Immature Grans % 0.3; Lymphocytes % 34.1; MCH 31.6 pg (27.0-33.0); MCHC 34.1 % (32.0-36.0); MCV 93 fL (80-95); MPV 8.7 fL (8.0-11.0); Neutrophils % 51.1; Platelet Count 291 10^3/uL (130-400); RDW 11.3 % (11.7-14.6); RDW-SD 38.2 fL; WBC 7.88 10^3/uL (4.4-10.8)
[2023-02-19] MEDS: ACETAMINOPHEN 1,000 MG/100 ML BTL 400 MG IVPB (20:45)
[2023-02-19 20:47] LABS: ALT 29 U/L (14-59); AST 11 U/L (15-37); Albumin 3.5 g/dL (3.4-5.0); Alkaline Phosphatase 79 U/L (46-116); Anion Gap 8.4 mmol/L (3-11); BUN 3 mg/dL (7-18); Bilirubin, Total 0.2 mg/dL (0.2-1.0); CO2 26.6 mmol/L (21.0-32.0); CREATININE 0.6 mg/dL (0.55-1.02); Calcium 9.6 mg/dL (8.5-10.1); Chloride 105 mmol/L (98-107); Estimated GFR 107.93 (mL/min/1.73m2); Glucose 121 mg/dL (74-106); Lipase 51 U/L (16-77); Potassium 3.7 mmol/L (3.5-5.1); Sodium 140 mmol/L (136-145); Total Protein 6.9 g/dL (6.4-8.2)
[2023-02-19 20:55] LABS: Troponin I < 50 ng/L (<or=60)
[2023-02-19] MEDS: Prochlorperazine 10 MG/2 ML VIAL IVP (21:00)
[2023-02-19] MEDS: Normal Saline - Diluent 50 ML VIAL IJ (21:14)
[2023-02-19] MEDS: Omnipaque 350 MG/ML 100 ML BTL IJ (21:14)
[2023-02-19 21:52] LABS: Bilirubin Negative (Negative); Blood Negative (Negative); Clarity Clear (Clear); Glucose Negative (Negative); Ketones Negative (Negative); Leukocyte Esterase Negative (Negative); Nitrite Negative (Negative); Urobilinogen 0.2 mg/dL (Up to 0.2); pH 7.5 (5-8)
--- NOTE | 2023-02-19 21:54 | DI.VRAD_ITS ---
PROCEDURE INFORMATION: Exam: CT Abdomen And Pelvis With Contrast Exam date and time: 02/19/2023 21:23 Age: 52 years old Clinical indication: Vomiting and other: Abdominal pain TECHNIQUE: Imaging protocol: Computed tomography of the abdomen and pelvis with contrast. Contrast material: OMNIPAQUE; Contrast volume: 100 ml; Contrast route: INTRAVENOUS (IV); COMPARISON: CT ABDOMEN PELVIS W 12/08/2022 19:36 FINDINGS: Liver: Benign hepatic cyst(s), no followup necessary. No hepatic masses. Gallbladder and bile ducts: Cholecystectomy. Typical caliber of the CBD for a post cholecystectomy patient. Pancreas: No ductal dilation. No masses. Spleen: No splenomegaly or focal lesions. Adrenal glands: No mass. Kidneys and ureters: Mild jgxzz-[id number]-fzuk-left hydronephrosis. No renal masses. Stomach and bowel: Colonic diverticulosis without diverticulitis. Appendix: No evidence of appendicitis. Intraperitoneal space: No free air. No significant fluid collection. Vasculature: No abdominal aortic aneurysm. Lymph nodes: No significantly enlarged lymph nodes. Urinary bladder: Markedly distended urinary bladder with minor anterior wall thickening however no significant surrounding edema. The pattern is similar to prior. Reproductive: Unremarkable as visualized. Bones/joints: No acute fracture. Soft tissues: Tiny fat-containing umbilical hernia. Other findings: Motion artifact in the abdomen. IMPRESSION: 1. Mild vaxbq-nlbuxaz-zoah-left hydronephrosis, likely due to reflux from the very distended urinary bladder, pattern similar to prior. 2. Incidental findings as described. Dictated and Authenticated by: Kira Sams MD. Ordering:JOSÉ Nava MD
[2023-02-19 23:10] VITALS: BP 138/72; PULSE 72; RESP 16; TEMP 36.7; O2SAT 98
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
== END 2023-02-19 23:07 | disposition home or self-care (01) ==
PROVIDERS: Emergency Provider Physician Assistant; PCP Family Medicine
DX: R11.2 Nausea with vomiting, unspecified (principal); R10.9 Unspecified abdominal pain; R53.1 Weakness; R33.9 Retention of urine, unspecified; Z79.899 Other long term (current) drug therapy; E11.9 Type 2 diabetes mellitus without complications; I10 Essential (primary) hypertension
CPT/HCPCS: 80053; 83690; 93005; 96365; 96366; 96368; 96375; 99285; 74177; 81003; 84484; 85025; 93010; 99284; J0131; J0780; J3490

== ENCOUNTER 2023-02-28 17:14 | Outpatient (REF) | payer MEDICAID, SELFPAY ==
[2023-02-28 18:42] LABS: Bilirubin Negative (Negative); Blood Negative (Negative); Clarity Clear (Clear); Glucose Negative (Negative); Ketones Negative (Negative); Leukocyte Esterase Negative (Negative); Nitrite Negative (Negative); Urobilinogen 0.2 mg/dL (Up to 0.2)
== END 2023-02-28 17:15 | disposition home or self-care (01) ==
LOC: LBN 17:14
PROVIDERS: PCP Family Medicine; Visit Provider Urology
DX: R39.9 Unspecified symptoms and signs involving the genitourinary system (principal)
CPT/HCPCS: 81003; 87086

== ENCOUNTER 2023-03-09 17:18 | Outpatient (REF) | payer MEDICAID, SELFPAY | END 2023-03-09 17:19 | disposition home or self-care (01) | LOC: LBN 17:18 | PROVIDERS: PCP Family Medicine; Visit Provider Urology | DX: R39.9 Unspecified symptoms and signs involving the genitourinary system (principal) | CPT/HCPCS: 87086 ==

== ENCOUNTER 2023-03-21 13:54 | Outpatient (CLI) | payer MEDICAID, SELFPAY ==
[2023-03-21 12:27] LABS: Bilirubin Negative (Negative); Blood Moderate (Negative); Clarity Clear (Clear); Glucose Negative (Negative); Ketones Negative (Negative); Leukocyte Esterase Trace (Negative); Nitrite Negative (Negative); Urobilinogen 0.2 mg/dL (Up to 0.2); pH 6.5 (5-8)
[2023-03-21 12:35] LABS: Bacteria Rare HPF (Negative); C & S Indicated? Yes; Casts Negative LPF (Negative); Crystals Negative HPF (Negative); Epithelial Cells Few HPF (Negative); Mucus Negative (Negative); Other Cells Few Renal (Negative)
[2023-03-21 12:41] LABS: Anion Gap 8.4 mmol/L (3-11); BUN 8 mg/dL (7-18); CO2 27.6 mmol/L (21.0-32.0); CREATININE 0.7 mg/dL (0.55-1.02); Calcium 9.8 mg/dL (8.5-10.1); Chloride 102 mmol/L (98-107); Glucose 94 mg/dL (74-106); Magnesium 2.3 mg/dL (1.8-2.4); Potassium 3.8 mmol/L (3.5-5.1); Sodium 138 mmol/L (136-145)
== END 2023-03-21 13:55 | disposition home or self-care (01) ==
PROVIDERS: PCP Family Medicine; Visit Provider Family Medicine
DX: R33.9 Retention of urine, unspecified (principal); R30.0 Dysuria
CPT/HCPCS: 36415; 80048; 81003; 81015; 83735; 87086

== ENCOUNTER 2023-04-12 11:38 | Outpatient (REF) | payer MEDICAID, SELFPAY | END 2023-04-12 11:39 | disposition home or self-care (01) | LOC: LBN 11:38 | PROVIDERS: PCP Family Medicine; Visit Provider Nurse Practitioner | DX: R30.0 Dysuria (principal) | CPT/HCPCS: 87086 ==

== ENCOUNTER 2023-05-02 12:08 | Outpatient (REF) | payer MEDICAID, SELFPAY | END 2023-05-02 12:09 | disposition home or self-care (01) | LOC: LBN 12:08 | PROVIDERS: PCP Family Medicine; Visit Provider Urology | DX: R39.89 Other symptoms and signs involving the genitourinary system (principal); R82.998 Other abnormal findings in urine | CPT/HCPCS: 87086 ==

== ENCOUNTER → 2023-05-10 01:13 | Outpatient (CLI) | payer MEDICAID, SELFPAY ==
--- NOTE | 2023-05-10 07:30 | DI.RAD_ITS ---
Exam(s) XR CHEST 2V PA LATERAL EXAM: XR CHEST 2V PA LATERAL CLINICAL HISTORY: 3 weeks of cough,r05.9. TECHNIQUE: 2D digital imaging was performed. COMPARISON: CR XR CHEST 2V PA LATERAL from 11/16/2022 FINDINGS: 2 views: Heart size is normal. The mediastinum is not widened. Lungs are clear. No infiltrates nor pleural effusions. IMPRESSION: No acute pulmonary findings. DATA REPOSITORY: RADIATION DOSE DELIVERED:
== END ==
PROVIDERS: PCP Family Medicine; Visit Provider Family Medicine
DX: R05.9 Cough, unspecified (principal)
CPT/HCPCS: 71046

== ENCOUNTER 2023-05-13 11:51 | Outpatient (REF) | payer MEDICAID, SELFPAY ==
[2023-05-13 12:04] LABS: Bilirubin Negative (Negative); Blood Negative (Negative); Clarity Clear (Clear); Glucose 100 mg/dL (Negative); Ketones Negative (Negative); Leukocyte Esterase Negative (Negative); Nitrite Negative (Negative); Urobilinogen 0.2 mg/dL (Up to 0.2); pH 6.5 (5-8)
== END 2023-05-13 11:52 | disposition home or self-care (01) ==
LOC: LBN 11:51
PROVIDERS: PCP Family Medicine; Visit Provider Urology
DX: R39.89 Other symptoms and signs involving the genitourinary system (principal); R82.998 Other abnormal findings in urine
CPT/HCPCS: 81003; 87086

== ENCOUNTER 2023-07-26 11:32 | Outpatient (REF) | payer MEDICAID, SELFPAY | END 2023-07-26 11:33 | disposition home or self-care (01) | LOC: LBN 11:32 | PROVIDERS: PCP Family Medicine; Referring Provider Family Medicine; Visit Provider Family Medicine | DX: R33.8 Other retention of urine (principal); R82.998 Other abnormal findings in urine | CPT/HCPCS: 87086 ==

== ENCOUNTER 2023-08-24 14:50 | Outpatient (REF) | payer MEDICAID, SELFPAY ==
--- NOTE | 2023-08-24 13:15 | PAPFT_PTH ---
PATIENT: José Miguel Park LOC: [facility] U#:[id number] AGE/SX: 52/F ROOM: RE08/24/[address]: Brandi Person NP : 1970 BED: DIS: 08/24/2023 SPEC #: [id number] RECD: 08/24/23 18:19 STATUS: HAYLEYElizabeth REMuna #: [id number] KWAME: 08/24/23 13:[address]: Brandi Person NP DEPT: [facility] Cytology RECD BY: Brandy Bray ENTERED: 08/24/23 18:19 SP TYPE: PAPFT OTHR DR: Brooks Hamm, DO Tissues: 1 - CX/ENDOCX FOR PAP SMEARS Procedures: PAP THIN PREP/[facility] Screening HPV DNA PROBE Comments: [id number]
== END 2023-08-24 14:51 | disposition home or self-care (01) ==
LOC: LBN 14:50
PROVIDERS: PCP Family Medicine; Visit Provider Nurse Practitioner Women's Health
DX: Z12.4 Encounter for screening for malignant neoplasm of cervix (principal); Z11.51 Encounter for screening for human papillomavirus (HPV)
CPT/HCPCS: 88142; 87624

== ENCOUNTER 2023-09-02 15:19 | Outpatient (REF) | payer MEDICAID, SELFPAY ==
[2023-09-02 19:37] LABS: Bacteria Few HPF (Negative); C & S Indicated? C&S Done As Ordered; Casts Negative LPF (Negative); Crystals Negative HPF (Negative); Epithelial Cells Few HPF (Negative); Mucus Negative (Negative); RBC 0-2 HPF (0-2); WBC >50 HPF (0-5)
[2023-09-02 21:16] LABS: Bilirubin Negative (Negative); Blood Moderate (Negative); Clarity Clear (Clear); Glucose Negative (Negative); Ketones Negative (Negative); Leukocyte Esterase Large (Negative); Nitrite Negative (Negative); Urobilinogen 0.2 mg/dL (Up to 0.2)
== END 2023-09-02 15:20 | disposition home or self-care (01) ==
LOC: LBN 15:19
PROVIDERS: PCP Family Medicine; Visit Provider Urology
DX: R39.89 Other symptoms and signs involving the genitourinary system (principal); R82.998 Other abnormal findings in urine
CPT/HCPCS: 81003; 81015; 87086

== ENCOUNTER → 2023-09-12 03:48 | Outpatient (CLI) | payer MEDICAID, SELFPAY ==
--- NOTE | 2023-09-12 08:45 | DI.MAMMO_ITS ---
Exam(s) MAMMO SCREENING EXAM: MAMMO SCREENING CLINICAL HISTORY: screening,z12.39. TECHNIQUE: Bilateral full field digital CC and MLO mammographic images were obtained with 3D tomosyn thesis and utilizing computer aided detection (CAD). COMPARISON: Prior mammograms were reviewed. FINDINGS: There has been no significant change in the appearance and distribution of the fibroglandular tissue. There are no new spiculated masses nor malignant appearing microcalcification groups. There is no significant architectural distortion nor skin thickening-retraction. IMPRESSION: No radiographic evidence of malignancy. BI-RADS Category 1 - Negative Breast Density - Category A - Almost entirely fatty Breast density Category C or D implies that the patient has dense breast tissue. Dense breast tissue can make it harder to find cancer on a mammogram. Dense breast tissue is also associated with an incr eased risk of breast cancer. This information about the result of the mammogram report was provided to the patient to raise their awareness. Use this report when you speak with the patient about their risks for breast cancer, which includes their family history. At that time, you may recommend additional screening tests (Ultrasoun d or MRI) as these tests may add significant information. A negative radiographic report should not delay biopsy if a dominant or clinically suspicious mass is present. Up to ten percent of cancers are not identified on mammography. A negative report may reinforce clinical impression. Adenosis and dense breasts may obscure an underlying neoplasm. False positive reports average 6 to 10%. Patient will receive a letter notifying them of these results.
== END ==
PROVIDERS: PCP Family Medicine; Visit Provider Nurse Practitioner Women's Health
DX: Z12.31 Encounter for screening mammogram for malignant neoplasm of breast (principal)
CPT/HCPCS: 77063; 77067

== ENCOUNTER 2023-10-07 13:09 | Outpatient (REF) | payer MEDICAID, SELFPAY | END 2023-10-07 13:10 | disposition home or self-care (01) | LOC: LBN 13:09 | PROVIDERS: PCP Family Medicine; Visit Provider Urology | DX: N39.0 Urinary tract infection, site not specified; R82.89 Other abnormal findings on cytological and histological examination of urine | CPT/HCPCS: 87086 ==

== ENCOUNTER 2023-10-21 09:11 | Outpatient (REF) | payer MEDICAID, SELFPAY ==
[2023-11-01 15:00] LABS: ALT 30 U/L (14-59); AST 15 U/L (15-37); Albumin 3.9 g/dL (3.4-5.0); Alkaline Phosphatase 65 U/L (46-116); Anion Gap 8.6 mmol/L (3-11); BUN 6 mg/dL (7-18); Bilirubin, Total 0.3 mg/dL (0.2-1.0); CO2 29.4 mmol/L (21.0-32.0); CREATININE 0.6 mg/dL (0.55-1.02); Calcium 10.2 mg/dL (8.5-10.1); Chloride 96 mmol/L (98-107); Estimated GFR 107.26 (mL/min/1.73m2); Glucose 98 mg/dL (74-106); Potassium 3.6 mmol/L (3.5-5.1); Sodium 134 mmol/L (136-145); Total Protein 7.8 g/dL (6.4-8.2)
== END 2023-10-21 09:12 | disposition home or self-care (01) ==
LOC: LBN 09:11
PROVIDERS: Nurse Practitioner Women's Health; PCP Family Medicine; Visit Provider Urology
DX: R39.9 Unspecified symptoms and signs involving the genitourinary system (principal); N39.0 Urinary tract infection, site not specified
CPT/HCPCS: 87086

== ENCOUNTER 2023-11-01 15:55 | Outpatient (CLI) | payer MEDICAID, SELFPAY | END 2023-11-01 15:56 | disposition home or self-care (01) | LOC: LBO 15:56 | PROVIDERS: PCP Family Medicine; Referring Provider Nurse Practitioner Women's Health; Visit Provider Nurse Practitioner Women's Health | DX: N95.1 Menopausal and female climacteric states (principal) | CPT/HCPCS: 36415; 80053 ==

== ENCOUNTER 2024-02-23 16:59 | Emergency (ER) | payer MEDICAID, SELFPAY ==
[2024-02-23 17:00] VITALS: BP 159/87; PULSE 71; RESP 18; TEMP 36.8; O2SAT 96
[2024-02-23 17:04] VITALS: BP 159/87; PULSE 71; RESP 18; TEMP 36.8; O2SAT 96
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
[2024-02-23 17:45] LABS: Bilirubin Negative (Negative); Blood Trace-intact (Negative); Clarity Clear (Clear); Glucose Negative (Negative); Ketones Negative (Negative); Leukocyte Esterase Trace (Negative); Nitrite Negative (Negative); Specific Gravity 1.015 (1.005-1.025); Urobilinogen 0.2 mg/dL (Up to 0.2); pH 7.5 (5-8)
[2024-02-23] MEDS: Ondansetron 4 MG/2 ML VIAL IVP ×2 (17:47→18:53)
[2024-02-23 17:49] LABS: Abs Immature Grans 0.01 10^3/uL (0.0-0.06); Absolute Basophil Count 0.04 10^3/uL (0.0-0.2); Absolute Eosinophil Count 0.07 10^3/uL (0.0-0.7); Absolute Lymphocyte Count 1.89 10^3/uL (1.2-3.4); Absolute Monocyte Count 0.42 10^3/uL (0.1-0.8); Absolute Neutrophil Count 2.83 10^3/uL (1.2-6.7); Basophils % 0.8 %; Eosinophils % 1.3 %; HCT 42.9 % (36.0-46.0); HGB 14.5 g/dL (11.2-15.7); Immature Grans % 0.2 %; Lymphocytes % 35.9 %; MCH 31.1 pg (27.0-33.0); MCHC 33.8 % (32.0-36.0); MCV 92 fL (80-95); MPV 8.6 fL (8.0-11.0); Neutrophils % 53.8 %; Platelet Count 285 10^3/uL (130-400); RBC 4.66 10^6/uL (3.93-5.22); RDW 11.1 % (11.7-14.6); RDW-SD 38.1 fL; WBC 5.26 10^3/uL (4.4-10.8)
[2024-02-23 17:54] LABS: Bacteria Rare HPF (Negative); C & S Indicated? No; Casts Negative LPF (Negative); Crystals Negative HPF (Negative); Epithelial Cells Negative HPF (Negative); Mucus Negative (Negative); Other Cells Negative (Negative); RBC 0-2 HPF (0-2)
--- NOTE | 2024-02-23 17:55 | DI.RAD_ITS ---
Exam(s) XR PORTABLE CHEST AP EXAM: XR PORTABLE CHEST AP CLINICAL HISTORY: cough TECHNIQUE: 2D digital imaging was performed of the chest. One image was obtained. An AP view was ob tained. COMPARISON: CR XR CHEST 2V PA LATERAL from 05/10/2023 FINDINGS: MEDIASTINUM: Normal. HEART: Normal. PULMONARY VASCULATURE: Normal. LUNGS: Clear. PLEURAL SPACE: No pleural effusion or pneumothorax. BONE:Within normal limits for the patient's age. OTHER FINDINGS:Normal. IMPRESSION: No acute pulmonary findings. DATA REPOSITORY: RADIATION DOSE DELIVERED:
[2024-02-23 18:10] LABS: ALT 48 U/L (14-59); AST 32 U/L (15-37); Albumin 3.5 g/dL (3.4-5.0); Alkaline Phosphatase 80 U/L (46-116); Anion Gap 1.8 mmol/L (3-11); BUN 5 mg/dL (7-18); Bilirubin, Total 0.22 mg/dL (0.2-1.0); CO2 34.2 mmol/L (21.0-32.0); CREATININE 0.6 mg/dL (0.55-1.02); Calcium 9.8 mg/dL (8.5-10.1); Chloride 102 mmol/L (98-107); Estimated GFR 107.26 (mL/min/1.73m2); Glucose 92 mg/dL (74-106); Lipase 45 U/L (16-77); Magnesium 2.2 mg/dL (1.8-2.4); Potassium 3.6 mmol/L (3.5-5.1); Sodium 138 mmol/L (136-145); Total Protein 7.6 g/dL (6.4-8.2)
--- NOTE | 2024-02-23 18:11 | DI.VRAD_ITS ---
PROCEDURE INFORMATION: Exam: XR Chest Exam date and time: 02/23/2024 5:51 PM Age: 53 years old Clinical indication: Other: Cough, covid-19 positive TECHNIQUE: Imaging protocol: Radiologic exam of the chest. Views: 1 view. COMPARISON: CR XR CHEST 2V PA LATERAL 05/10/2023 9:15 AM FINDINGS: Lungs: Unremarkable. No consolidation. Pleural spaces: Unremarkable. No pleural effusion. No pneumothorax. Heart/Mediastinum: Unremarkable. No cardiomegaly. Bones/joints: Unremarkable. IMPRESSION: No evidence for acute abnormality in the chest. Dictated and Authenticated by: Martha Coles MD. Ordering:ROSSY Galvin MD
== END 2024-02-23 18:53 | disposition home or self-care (01) ==
PROVIDERS: Emergency Provider Student in an Organized Health Care Education/Training Program; PCP Family Medicine
DX: U07.1 COVID-19 (principal); R11.2 Nausea with vomiting, unspecified; R19.7 Diarrhea, unspecified; R05.9 Cough, unspecified
CPT/HCPCS: 80053; 83690; 96374; 96376; 99284; 71045; 81003; 81015; 83735; 85025; J2405

== ENCOUNTER 2024-02-24 11:26 | Emergency (ER) | payer MEDICAID, SELFPAY ==
[2024-02-24 11:36] VITALS: BP 129/75; PULSE 91; RESP 18; TEMP 36.6; O2SAT 98
--- NOTE | 2024-02-24 11:55 | ED.GENADUL_ITS ---
Discharge Plan Disposition Patient Disposition: Home Condition: Stable Discharge Details Clinical Impression: Pancreatitis Primary Care Provider: Brooks Hamm ED Provider: Yusuf Briceno Home Meds and New Rx's Prescriptions: New ondansetron 4 mg tablet,disintegrating 4 mg PO Q8H PRNQty: 30 0RF Continued fluticasone propionate [Flonase Allergy Relief] 50 mcg/actuation spray,suspension 1 spray ONEAL DAILY PRN (Reason: nasal congestion) Qty: 36.4 1RF (DME) compressor, for nebulizer Device See Rx Instructions .ROUTE .MEDSUPPLY Qty: 1 0RF Rx Instructions: QID for asthma exacerbation; Daily PRN Wheezing budesonide-formoterol [Symbicort] 160-4.5 mcg/actuation HFA aerosol inhaler 2 puff inhalation BID Qty: 10.2 6RF ipratropium-albuterol 0.5 mg-3 mg(2.5 mg base)/3 mL solution for nebulization 3 ml inhalation Q6H PRN (Reason: wheezing) Qty: 90 1RF diclofenac sodium [Arthritis Pain (diclofenac)] 1 % gel 2 g topical QID Qty: 100 0RF lamotrigine 100 mg tablet 100 mg PO BID Rx Instructions: per discharge note [facility] [place] 02/11/23 cc hydroxyzine HCl 10 mg tablet 10 mg PO BID PRN ondansetron HCl 4 mg tablet 4 mg PO Q8H Qty: 30 3RF (DME) blood-glucose meter [FreeStyle Lite Meter] Kit See Rx Instructions .Route Qty: 1 0RF Rx Instructions: Check Blood sugar daily. E11.9 (DME) FreeStyle Lite Strips Strip See Rx Instructions .Route Qty: 100 3RF Rx Instructions: Check blood sugars daily, Dx: E11.9, to keep HbA1c below 6.5% (DME) lancets [FreeStyle Lancets] 28 gauge misc See Rx Instructions .ROUTE .MEDSUPPLY Qty: 100 3RF Rx Instructions: Use once a day for goal A1c < 7; Dx E11.9 calcium carbonate-vitamin D3 [Calcium 600 + D(3)] 600 mg-5 mcg (200 unit) tablet 1 tab PO BID Qty: 180 3RF albuterol sulfate 90 mcg/actuation HFA aerosol inhaler 1 - 2 puff inhalation Q4H PRN (Reason: shortness of breath or wheezing) Qty: 1 3RF Rx Instructions: Dispense brand of albuterol inhaler covered by patient's insurance famotidine 40 mg tablet 40 mg PO DAILY Qty: 90 3RF pantoprazole 40 mg tablet,delayed release (DR/EC) 40 mg PO DAILY Qty: 90 3RF bupropion HCl [Wellbutrin XL] 300 mg tablet extended release 24 hr 300 mg PO QAM Rx Instructions: Start date 06/21/2023 Per office note [facility] 07/21/2023 buspirone 7.5 mg tablet 7.5 mg PO BID Rx Instructions: Start date 06/21/2023 Per [facility] office visit note 07/21/2023 esomeprazole magnesium 20 mg capsule,delayed release(DR/EC) 20 mg PO DAILY Qty: 90 3RF levothyroxine 88 mcg tablet See Rx Instructions .ROUTE .COMPLEX Qty: 90 3RF Dose Instruction: TAKE 1 TABLET BY MOUTH DAILY Rx Instructions: TAKE 1 TABLET BY MOUTH DAILY hydrocortisone [Cortisone (hydrocortisone)] 1 % cream 1 applic HI TID PRN (Reason: hemorrhoid / skin irritation) Qty: 28.4 2RF Rx Instructions: PHARM to confirm HI appropriate hydrocortisone acetate 25 mg suppository 25 mg HI QHS Qty: 24 1RF calcium carbonate [Calcium Antacid] 200 mg calcium (500 mg) tablet,chewable 400 mg PO Q4H PRN (Reason: heartburn) ondansetron 4 mg tablet,disintegrating 4 mg PO Q8H quetiapine 50 mg tablet 50 mg PO BID PRN (Reason: anxiety) Metamucil 3.4 gram/5.4 gram powder 1 tbsp PO DAILY Rx Instructions: 1 tsp daily for 1 week, then 2 tsp daily for 1 week, the 3 tsp daily metformin 500 mg tablet See Rx Instructions .ROUTE .COMPLEX Qty: 90 3RF Dose Instruction: TAKE 1 TABLET BY MOUTH DAILY Rx Instructions: TAKE 1 TABLET BY MOUTH DAILY polyethylene glycol 3350 4 gram powder in packet 17 g PO BID Qty: 144 3RF alum-mag hydroxide-simeth 200-200-20 mg/5 mL suspension 10 ml PO TID PRN (Reason: dyspepsia) Qty: 3000 3RF sennosides-docusate sodium [Senna with Docusate Sodium] 8.6-50 mg tablet 2 tab-cap PO BID Qty: 360 3RF Paxlovid 300 mg (150 mg x 2)-100 mg tablets,dose pack See Rx Instructions PO .COMPLEX Qty: 30 0RF Rx Instructions: take TWO 150 mg tablets of nirmatrelvir with ONE 100 mg tablet of ritonavir twice daily for 5 days PO; hold quetiapine and trazodone while on his medication Lactobacillus acidophilus Tablet 1 tab PO DAILY trazodone 100 mg tablet 200 mg PO DAILY Discharge Instructions Instructions: Acute pancreatitis, Ondansetron, Binge Drinking Additional Instructions: You were seen in the emergency department for your mid abdominal pain, you have COVID but you are likely going to be fine as you are on day 5 of infection and Paxlovid is beginning to be effective. You are in no respiratory distress. Your nausea and vomiting is likely related to alcohol intake, he had a positive alcohol level in your blood this morning and you are have some mild elevation of pancreas enzymes indicating pancreatitis which can be secondary to acute alcohol ingestion, the solution for pancreatitis is to perform bowel rest and drink only clear fluids until your symptoms resolve. I have refilled a prescription of Zofran which is a dissolvable antinausea tablet that goes under your tongue, you may use this 20 to 30 minutes before attempting oral intake. Otherwise your labs are benign and there is no acute emergency here, please do not hesitate to return to the emergency department for any acute life or limb threats including chest pain, neurologic abnormality, respiratory distress. Referrals: Brooks Hamm DO [Primary Care Provider] - Discharge Data Discharge Date/Time-TO BE ENTERED AT DEPARTURE: 02/24/24 16:32 HPI General Date/Time Provider Initiated Documentation: 02/24/24 11:41 . HPI Narrative: 53 year-old female presents to ED today by EMS with a chief complaint of vomiting, inability to care for herself, diagnosed with Covid-19 last week, on Paxlovid, labile and hostile toward staff immediately upon arrival with onset for the past few days. Quality described as tangential, patient irate about the vomit all over her bedroom and that she cannot clean it up, no radiation to overt fever, respiratory distress, severe cough, chest pain, patient endorses nausea and vomiting and generalized abdominal pain. Severity is described as severe. Palliating factors include nothing specific. Provoking factors include nothing specific. Events leading up to the incident/Associated Symptoms: Patient also states she received a COVID vaccination last Tuesday is unclear on timeline if she was already sick with COVID when she got this or if this came after or if this even occurred. Patient not anticoagulated. Related Data Home Medications ?Medication ?Instructions ?Recorded ?Confirmed compressor, for nebulizer #1 ea 11/16/22 02/24/24 fluticasone propionate 50 1 spray intranasal DAILY PRN nasal 11/16/22 02/24/24 mcg/actuation nasal congestion #36.4 mL spray,suspension (Flonase Allergy Relief) budesonide-formoterol HFA 160 2 puff inhalation BID #10.2 grams 12/01/22 02/24/24 mcg-4.5 mcg/actuation aerosol inhaler (Symbicort) Lactobacillus acidophilus 1 tab PO DAILY 12/30/22 02/24/24 trazodone 100 mg tablet 200 mg PO DAILY 01/18/23 02/24/24 blood sugar diagnostic (FreeStyle #100 ea 01/20/23 02/24/24 Lite Strips) blood-glucose meter (FreeStyle #1 ea 01/20/23 02/24/24 Lite Meter kit) lancets 28 gauge (FreeStyle #100 ea 01/20/23 02/24/24 Lancets) lamotrigine 100 mg tablet 100 mg PO BID 01/25/23 02/24/24 calcium carbonate 600 mg-vitamin 1 tab PO BID #180 tabs 04/12/23 02/24/24 D3 5 mcg (200 unit) tablet (Calcium 600 + D(3)) ipratropium 0.5 mg-albuterol 3 mg 3 ml inhalation Q6H PRN wheezing 04/26/23 02/24/24 (2.5 mg base)/3 mL nebulization #90 mL soln albuterol sulfate 90 mcg/actuation 1 - 2 puff inhalation Q4H PRN 05/05/23 02/24/24 aerosol inhaler shortness of breath or wheezing #1 unit diclofenac sodium 1 % topical gel 2 g topical QID #100 grams 05/13/23 02/24/24 (Arthritis Pain (diclofenac)) famotidine 40 mg tablet 40 mg PO DAILY #90 tabs 07/04/23 02/24/24 pantoprazole 40 mg tablet,delayed 40 mg PO DAILY #90 tabs 07/04/23 02/24/24 release bupropion HCl 300 mg 24 hr tablet, 300 mg PO QAM 08/08/23 02/24/24 extended release (Wellbutrin XL) buspirone 7.5 mg tablet 7.5 mg PO BID 08/08/23 02/24/24 esomeprazole magnesium 20 mg 20 mg PO DAILY #90 caps 10/24/23 02/24/24 capsule,delayed release ondansetron HCl 4 mg tablet 4 mg PO Q8H #30 tabs 11/10/23 02/24/24 levothyroxine 88 mcg tablet See Rx Instructions .Route 12/01/23 02/24/24 .COMPLEX #90 tabs hydrocortisone 1 % topical cream 1 applic HI TID PRN hemorrhoid / 12/04/23 02/24/24 (Cortisone (hydrocortisone)) skin irritation #28.4 grams hydrocortisone acetate 25 mg 25 mg HI QHS #24 ea 12/04/23 02/24/24 rectal suppository calcium carbonate (Calcium Antacid) 400 mg PO Q4H PRN heartburn 01/03/24 02/24/24 ondansetron 4 mg disintegrating 4 mg PO Q8H nausea 01/03/24 02/24/24 tablet quetiapine 50 mg tablet 50 mg PO BID PRN anxiety 01/03/24 02/24/24 psyllium husk 3.4 gram/5.4 gram 1 tbsp PO DAILY 01/12/24 02/24/24 oral powder (Metamucil) metformin 500 mg tablet See Rx Instructions .Route 01/16/24 02/24/24 .COMPLEX #90 tabs polyethylene glycol 3350 4 gram 17 g PO BID constipation #144 ea 01/30/24 02/24/24 oral powder packet aluminum-mag hydroxide-simethicone 10 ml PO TID PRN dyspepsia #3,000 01/31/24 02/24/24 200 mg-200 mg-20 mg/5 mL oral susp mL sennosides 8.6 mg-docusate sodium 2 tab-cap (2 x 8.6-50 mg) PO BID 01/31/24 02/24/24 50 mg tablet (Senna with Docusate #360 tabs Sodium) hydroxyzine HCl 10 mg tablet 10 mg PO BID PRN 02/06/24 02/24/24 nirmatrelvir 300 mg (150 mg See Rx Instructions PO .COMPLEX 02/22/24 02/24/24 x2)-ritonavir 100 mg tablet,dose #30 dose pk pack (Paxlovid) ondansetron 4 mg disintegrating 4 mg PO Q8H PRN #30 tabs 02/24/24 tablet Previous Rx's ?Medication ?Instructions ?Recorded compressor, for nebulizer #1 ea 11/16/22 fluticasone propionate 50 1 spray intranasal DAILY PRN nasal 11/16/22 mcg/actuation nasal congestion #36.4 mL spray,suspension (Flonase Allergy Relief) budesonide-formoterol HFA 160 2 puff inhalation BID #10.2 grams 12/01/22 mcg-4.5 mcg/actuation aerosol inhaler (Symbicort) blood sugar diagnostic (FreeStyle #100 ea 01/20/23 Lite Strips) blood-glucose meter (FreeStyle #1 ea 01/20/23 Lite Meter kit) lancets 28 gauge (FreeStyle #100 ea 01/20/23 Lancets) calcium carbonate 600 mg-vitamin 1 tab PO BID #180 tabs 04/12/23 D3 5 mcg (200 unit) tablet (Calcium 600 + D(3)) ipratropium 0.5 mg-albuterol 3 mg 3 ml inhalation Q6H PRN wheezing 04/26/23 (2.5 mg base)/3 mL nebulization #90 mL soln albuterol sulfate 90 mcg/actuation 1 - 2 puff inhalation Q4H PRN 05/05/23 aerosol inhaler shortness of breath or wheezing #1 unit diclofenac sodium 1 % topical gel 2 g topical QID #100 grams 05/13/23 (Arthritis Pain (diclofenac)) famotidine 40 mg tablet 40 mg PO DAILY #90 tabs 07/04/23 pantoprazole 40 mg tablet,delayed 40 mg PO DAILY #90 tabs 07/04/23 release esomeprazole magnesium 20 mg 20 mg PO DAILY #90 caps 10/24/23 capsule,delayed release ondansetron HCl 4 mg tablet 4 mg PO Q8H #30 tabs 06/20/24 levothyroxine 88 mcg tablet See Rx Instructions .Route 12/01/23 .COMPLEX #90 tabs hydrocortisone 1 % topical cream 1 applic HI TID PRN hemorrhoid / 12/04/23 (Cortisone (hydrocortisone)) skin irritation #28.4 grams hydrocortisone acetate 25 mg 25 mg HI QHS #24 ea 12/04/23 rectal suppository metformin 500 mg tablet See Rx Instructions .Route 01/16/24 .COMPLEX #90 tabs polyethylene glycol 3350 4 gram 17 g PO BID constipation #144 ea 01/30/24 oral powder packet aluminum-mag hydroxide-simethicone 10 ml PO TID PRN dyspepsia #3,000 01/31/24 200 mg-200 mg-20 mg/5 mL oral susp mL sennosides 8.6 mg-docusate sodium 2 tab-cap (2 x 8.6-50 mg) PO BID 01/31/24 50 mg tablet (Senna with Docusate #360 tabs Sodium) nirmatrelvir 300 mg (150 mg See Rx Instructions PO .COMPLEX 02/22/24 x2)-ritonavir 100 mg tablet,dose #30 dose pk pack (Paxlovid) ondansetron 4 mg disintegrating 4 mg PO Q8H PRN #30 tabs 02/24/24 tablet Allergies Allergy/AdvReac Type Severity Reaction Status Date / Time ibuprofen (From Advil) Allergy Intermediate Skin Rash Verified 02/23/24 17:03 pollen extracts Allergy Intermediate runny nose Verified 02/23/24 17:03 latex Allergy Skin Rash Verified 02/23/24 17:03 ADHESIVE TAPE Allergy Unknown HER SKIN Uncoded 02/23/24 17:03 PEELS OFF RUBBING ALCOHOL Allergy Unknown RASH Uncoded 02/23/24 17:03 General Stated Complaint: Nausea/Vomit/Diar TROY: 3 Review of Systems All systems reviewed & are unremarkable except as noted in HPI and below Exam Narrative Exam Narrative: GENERAL APPEARANCE: Well-nourished, non-toxic, awake and alert, atraumatic, no acute distress. SKIN: Warm, normal for ethnicity, dry, intact, without rashes/lesions/ulcerations. HEAD: Normocephalic, atraumatic, normal hair distribution for gender/age. EYES: Normal conjunctiva, no exudates on lids/lashes. ENT: Nares patent, no circumoral cyanosis, no facial swelling, no active vomiting, tolerating PO intake. NECK: Supple, trachea midline, painless cervical ROM. LUNGS/CHEST: Lungs CTA bilaterally- no rhonchi/rales/wheezes diffusely, non- labored respirations, normal A/P diameter, symmetrical expansion, no chest wall deformity HEART (CV/PV): Regular rate and rhythm without murmur, no peripheral edema, no JVD. ABDOMEN: Normoactive bowel sounds, soft, non-distended, no guarding, epigastric tenderness, diffuse tenderness, no CVA tenderness to percussion. MSK: Normal ROM, no swelling/deformity to bilateral UEs or LEs, moving all extremities without weakness, no cyanosis, spine midline without tenderness, normal curvature. NEURO: Mental Status AAOx4 - alert to person, place, time, events No facial droop, no forehead involvement. Motor: No focal weakness - strength 5/5 in bilateral UEs and LEs, proximal and distal, symmetric. Sensory: sensation intact to light touch globally. Gait normal: patient ambulated without ataxia into ED room. PSYCH: dysthymic, uncooperative, unpleasant, appropriate speech Course Vital Signs Vital signs: Vital Signs Temperature 36.6 C 02/24/24 11:36 Pulse 91 H 02/24/24 11:36 Respiratory Rate 18 02/24/24 11:36 Blood Pressure 129/75 02/24/24 11:36 Pulse Oximetry 98 02/24/24 11:36 Temperature 36.6 C 02/24/24 11:36 Temperature Source Temporal Artery Scan 02/24/24 11:36 Pulse 91 H 02/24/24 11:36 Respiratory Rate 18 02/24/24 11:36 Blood Pressure 129/75 02/24/24 11:36 Pulse Oximetry 98 02/24/24 11:36 Oxygen Delivery Method Room Air 02/24/24 11:36 Oxygen Flow Rate 0 02/24/24 11:36 Medical Decision Making This dictation utilizes [id number] dictation software and may contain unedited grammatical errors. 53 year-old female presents to ED today by EMS with a chief complaint of vomiting, inability to care for herself, diagnosed with Covid-19 last week, on Paxlovid, labile and hostile toward staff immediately upon arrival with onset for the past few days. Quality described as tangential, patient irate about the vomit all over her bedroom and that she cannot clean it up, no radiation to overt fever, respiratory distress, severe cough, chest pain, patient endorses nausea and vomiting and generalized abdominal pain. Severity is described as severe. Palliating factors include nothing specific. Provoking factors include nothing specific. Events leading up to the incident/Associated Symptoms: Patient also states she received a COVID vaccination last Tuesday is unclear on timeline if she was already sick with COVID when she got this or if this came after or if this even occurred. Patients' medical history: PTSD, diverticulitis, ovarian cysts, status post appendectomy, status post cholecystectomy, recent COVID-19, elevated liver enzymes, bipolar disorder, diabetes mellitus, seizure disorder, hypertension. Family and social history: denies etoh use. Pertinent exam findings / vital signs include diffuse epigastric tenderness, dys thymic, hostile, benign cardiopulmonary status, nontoxic vitals. Differential / pathologies of concern include pancreatitis, status post cholecystectomy do not suspect biliary pathology, possible gastroenteritis, gastritis, COVID-19 known active infection. Diagnostic studies of: -CBC, CMP, lactate, lipase, UA, alcohol level, US ABD/Renal -Alcohol level positive shows 9.6, patient denies drinking and lipase is elevated at 105 indicating a mild pancreatitis -CBC and CMP benign -Lactate negative -UA benign -U/S shows no renal or right upper quadrant abdominal abnormalities Interventions of: -4 mg IV Zofran, 1 g IV Tylenol. Case Mgmt Consult. ED Course/Assessment/Plan: 53-year-old female arrives by EMS extremely hostile towards staff, states that she is not getting proper care from multiple providers, case liner, states she has been vomiting in her home and cannot clean it up, I see no reason why the patient cannot clean and vomiting she is perfectly ambulatory and nontoxic here in the department, she was recently seen in states that she was given a COVID- vaccine shot but had active COVID but was put on Paxlovid but she is not taking it. She was found to have elevated lipase indicating a mild acute pancreatitis, her alcohol level was noted to be 89.6, she denies drinking, I did certified rehabilitation counselor her on clear fluid diet and she was tolerating p.o. intake here in the department, I did order case management consult for her, she was extremely irate with this and the case was discussed with oncoming provider in case there are any issues during discharge process after her case management consult. Findings not consistent with choledocholithiasis, sepsis, electrolyte abnormalities, mesenteric ischemia, respiratory distress. Disposition of pancreatitis. Patient verbalized understanding of the plan and return to ED criteria and engaged in shared decision making. Medical Records Medical records reviewed: Yes I reviewed the patient's medical records. Imaging Data Radiologic Study: Attestation: I personally reviewed and interpreted this imaging study as follows: Imaging: Ultrasound Radiologist's impression: EXAM: US ABDOMEN RENAL CLINICAL HISTORY: RUQ ABD pain TECHNIQUE: Ultrasound abdomen performed using standard protocol. COMPARISON: CT CT ABDOMEN PELVIS W from 02/19/2023 FINDINGS: ABDOMINAL AORTA AND IVC: Visualized portions normal caliber. PANCREAS: Normal where visualized. LIVER: Normal. Hepatopetal flow in the Portal Vein. The liver measures 14.1 cm long. There is a 0.9 cm cyst in the right lobe of the liver. No hepatic mass is seen sonographically. GALLBLADDER: Status post cholecystectomy. BILIARY SYSTEM: Common bile duct measures 0.7 cm. No intrahepatic biliary ductal dilation. SPLEEN: Not enlarged. ASCITES: None seen. Renal size in cm: Right: 11.0. Left: 11.1. Echogenicity: Normal. Hydronephrosis: No. Cyst or mass: No. Nephrolithiasis: No. Other findings: None. Bladder:Normal. Ureteral jets: Right: Visualized and unremarkable. Left: Visualized and unremarkable. Prevoid vol:75 cc Postvoid vol:The patient was unable to void during the examination. Renal color flow: Symmetric and within normal limits. IMPRESSION: 1. Status post cholecystectomy. No biliary ductal dilatation. 2. No acute abnormality. 3. No evidence of nephrolithiasis or hydronephrosis. Lab Data Lab results reviewed: Yes I reviewed the patient's lab results. Labs: Laboratory Tests Range/Units 02/24/24 02/24/24 12:14 13:37 WBC (4.4-10.8) 10^3/uL 6.35 RBC (3.93-5.22) 10^6/uL 5.36 H Hgb (11.2-15.7) g/dL 16.7 H D Hct (36.0-46.0) % 48.4 H MCV (80-95) fL 90 MCH (27.0-33.0) pg 31.2 MCHC (32.0-36.0) % 34.5 RDW (11.7-14.6) % 11.1 L Plt Count (130-400) 10^3/uL 339 MPV (8.0-11.0) fL 8.4 Immature Gran % % 0.6 Neutrophils % % 64.4 Lymphocytes % % 25.8 Monocytes % % 7.9 Eosinophils % % 0.8 Basophils % % 0.5 Nucleated RBC % (0.0-0.3) % 0.0 Absolute Neutrophils (1.2-6.7) 10^3/uL 4.09 Absolute Lymphocytes (1.2-3.4) 10^3/uL 1.64 Absolute Monocytes (0.1-0.8) 10^3/uL 0.50 Absolute Eosinophils (0.0-0.7) 10^3/uL 0.05 Absolute Basophils (0.0-0.2) 10^3/uL 0.03 VBG Lactate (0.6-1.4) mmol/L 1.0 Sodium (136-145) mmol/L 142 Potassium (3.5-5.1) mmol/L 3.9 Chloride (98-107) mmol/L 103 Carbon Dioxide (21.0-32.0) mmol/L 29.8 Anion Gap (3-11) mmol/L 9.2 BUN (7-18) mg/dL 3 L Creatinine (0.55-1.02) mg/dL 0.6 Est GFR (CKD-EPI 2020) (mL/min/1.73m2) 107.26 Glucose (74-106) mg/dL 148 H Calcium (8.5-10.1) mg/dL 10.9 H Magnesium (1.8-2.4) mg/dL 2.2 Total Bilirubin (0.2-1.0) mg/dL 0.30 AST (15-37) U/L 22 ALT (14-59) U/L 48 Alkaline Phosphatase (46-116) U/L 89 Total Protein (6.4-8.2) g/dL 8.9 H Albumin (3.4-5.0) g/dL 4.2 Lipase (16-77) U/L 105 H Urine Color (Yellow) Yellow Urine Clarity (Clear) Sl Cloudy Urine pH (5-8) 6.0 Ur Specific [employer] (1.005-1.025) 1.010 Urine Protein (Neg-Trace) mg/dL Negative Urine Ketones (Negative) mg/dL Negative Urine Blood (Negative) Negative Urine Nitrite (Negative) Negative Urine Bilirubin (Negative) Negative Urine Urobilinogen (Up to 0.2) mg/dL 0.2 Ur Leukocyte Esterase (Negative) Trace H Urine RBC (0-2) HPF 0-2 Urine WBC (0-5) HPF 3-5 Ur Epithelial Cells (Negative) HPF Few Urine Crystals (Negative) HPF Negative Urine Bacteria (Negative) HPF Few Urine Mucus (Negative) Negative Urine Other (Negative) Few Transitional Ur Culture Indicated? No Urine Glucose (Negative) mg/dL Negative Ethyl Alcohol (<10) mg/dL 9.6 Quality:[facility] Health Related Social Needs: No Data to Display PFSH All Active Problems (Updated 02/24/24 @ 15:19 by TATE Viveros) Pancreatitis (Chronic) Nausea and vomiting (Acute) COVID-19 (Acute) Unintentional weight loss (Acute) 01/09/24 [facility] Gastro note Altered bowel function (Acute) 01/09/24 [facility] Gastro note Elevated liver enzymes (Acute) 01/09/24 [facility] Gastro note Abnormal radiologic findings on diagnostic imaging of renal pelvis, ureter, or bladder (Acute) Complicated grief (Acute) Right knee DJD (Acute) Synvisc: 10/29/22; 05/13/2023; 03/24/22; 06/11/2021 Depo-medrol: 11/25/22 Tinea pedis (Acute) Managed by podiatry clinic @ [facility] (@ [facility]) Onychogryphosis (Acute) Managed by podiatry clinic @ [facility] ([facility]). Proposed phenol matricectomyfor fall of 2023. External hemorrhoid (Acute) Borderline personality disorder (Acute) Generalized anxiety disorder (Chronic 12/22/14) GERD (gastroesophageal reflux disease) (Chronic) Retinopathy (Acute 07/11/23) Recurrent UTI (urinary tract infection) (Acute) Managed by Urology @ [facility] Venkat Barboza and Joseluis Pulmonary air trapping (Acute) per CT per pt report [ ] new inhaler? [facility] Pulm? Bipolar disorder (Chronic) 12/29/[address] [facility] Psychiatry - Bipolar affective disorder Xerostomia (Acute) Hydroureteronephrosis (Acute) Abdominal bloating (Chronic) Atrophic vaginitis (Acute 03/24/15) Depressive disorder (Chronic 12/22/14) Major depressive disorder, recurrent, moderate Diabetes mellitus (Chronic 09/11/13) Hypothyroidism (Chronic 09/11/13) Seizure disorder (Chronic 09/11/13) Bilateral primary osteoarthritis of knee (Chronic) Body mass index (BMI) of 40.1 to 44.9 in adult (Chronic) Essential hypertension (Acute) Low back pain (Acute) Asthma (Chronic) Positive PPD (Chronic) Negative CXR 07/02/22 Medical History Pharyngitis Depo-Provera contraceptive status using for cycle control, not sexually active History of VIVIANA positive for HSV (09/11/13) History of cervical dysplasia July 2021: LSIL/HPV+, benign colp H/o ASCUS & HPV in the past with colp in 2011 History of endometrial biopsy (02/08/20) PTSD (post-traumatic stress disorder) DAVIS (obstructive sleep apnea) Ovarian cyst Diverticulitis large intestine Per ED @ [facility], 10/2020 Yeast dermatitis Benign mole (01/08/13) Surgical History H/O esophagogastroduodenoscopy (12/06/23) [facility] Dr Rubi w/biopsies all normal 02/09/24--[facility]-Dr Small w/biopsies; MCKINNON pH capsule deployed; 1cm hiatal hernia History of colonoscopy (~11/2022) S/P appendectomy (~1980) H/O: (~2002) History of right cataract surgery (~08/24/16) History of left cataract surgery (~09/14/16) Cholecystectomy (~2009) Family History Sister Diabetes Brother Diabetes Mother Hepatitis B Liver cancer TB (pulmonary tuberculosis) Hypertension Father Diabetes Heart disease Lung cancer Hypertension Social History Smoking/Tobacco Use Status: Former Tobacco Use tobacco type: cigarettes Quit Date: 05/23/02 Quit status: has quit before (2002) Smoking risk assessment performed?: Yes Alcohol Intake: never Drug use: Never Substance use type: does not use Adopted: No Caregiver/Support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
[2024-02-24 12:20] LABS: Abs Immature Grans 0.04 10^3/uL (0.0-0.06); Absolute Basophil Count 0.03 10^3/uL (0.0-0.2); Absolute Eosinophil Count 0.05 10^3/uL (0.0-0.7); Absolute Lymphocyte Count 1.64 10^3/uL (1.2-3.4); Absolute Neutrophil Count 4.09 10^3/uL (1.2-6.7); Basophils % 0.5 %; Eosinophils % 0.8 %; HCT 48.4 % (36.0-46.0); HGB 16.7 g/dL (11.2-15.7); Immature Grans % 0.6 %; Lymphocytes % 25.8 %; MCH 31.2 pg (27.0-33.0); MCHC 34.5 % (32.0-36.0); MCV 90 fL (80-95); MPV 8.4 fL (8.0-11.0); Monocytes % 7.9 %; Neutrophils % 64.4 %; Platelet Count 339 10^3/uL (130-400); RBC 5.36 10^6/uL (3.93-5.22); RDW 11.1 % (11.7-14.6); RDW-SD 36.9 fL; WBC 6.35 10^3/uL (4.4-10.8)
[2024-02-24] MEDS: Ondansetron 4 MG/2 ML VIAL IVP (12:32)
[2024-02-24 12:43] LABS: ALT 48 U/L (14-59); AST 22 U/L (15-37); Albumin 4.2 g/dL (3.4-5.0); Alkaline Phosphatase 89 U/L (46-116); Anion Gap 9.2 mmol/L (3-11); BUN 3 mg/dL (7-18); CO2 29.8 mmol/L (21.0-32.0); CREATININE 0.6 mg/dL (0.55-1.02); Calcium 10.9 mg/dL (8.5-10.1); Chloride 103 mmol/L (98-107); Estimated GFR 107.26 (mL/min/1.73m2); Glucose 148 mg/dL (74-106); Lipase 105 U/L (16-77); Magnesium 2.2 mg/dL (1.8-2.4); Potassium 3.9 mmol/L (3.5-5.1); Sodium 142 mmol/L (136-145); Total Protein 8.9 g/dL (6.4-8.2)
--- NOTE | 2024-02-24 13:15 | DI.US_ITS ---
Exam(s) US ABDOMEN RENAL EXAM: US ABDOMEN RENAL CLINICAL HISTORY: RUQ ABD pain TECHNIQUE: Ultrasound abdomen performed using standard protocol. COMPARISON: CT CT ABDOMEN PELVIS W from 02/19/2023 FINDINGS: ABDOMINAL AORTA AND IVC: Visualized portions normal caliber. PANCREAS: Normal where visualized. LIVER: Normal. Hepatopetal flow in the Portal Vein. The liver measures 14.1 cm long. There is a 0.9 cm cyst in the right lobe of the liver. No hepatic mass is seen sonographically. GALLBLADDER: Status post cholecystectomy. BILIARY SYSTEM: Common bile duct measures 0.7 cm. No intrahepatic biliary ductal dilation. SPLEEN: Not enlarged. ASCITES: None seen. Renal size in cm: Right: 11.0. Left: 11.1. Echogenicity: Normal. Hydronephrosis: No. Cyst or mass: No. Nephrolithiasis: No. Other findings: None. Bladder:Normal. Ureteral jets: Right: Visualized and unremarkable. Left: Visualized and unremarkable. Prevoid vol:75 cc Postvoid vol:The patient was unable to void during the examination. Renal color flow: Symmetric and within normal limits. IMPRESSION: 1. Status post cholecystectomy. No biliary ductal dilatation. 2. No acute abnormality. 3. No evidence of nephrolithiasis or hydronephrosis. DATA REPOSITORY:
[2024-02-24 13:41] LABS: ETHANOL BLOOD 9.6 mg/dL (<10)
[2024-02-24 13:48] LABS: Bilirubin Negative (Negative); Blood Negative (Negative); Clarity Sl Cloudy (Clear); Glucose Negative (Negative); Ketones Negative (Negative); Leukocyte Esterase Trace (Negative); Nitrite Negative (Negative); Urobilinogen 0.2 mg/dL (Up to 0.2)
[2024-02-24 13:58] LABS: Bacteria Few HPF (Negative); C & S Indicated? No; Crystals Negative HPF (Negative); Epithelial Cells Few HPF (Negative); Mucus Negative (Negative); Other Cells Few Transitional (Negative); RBC 0-2 HPF (0-2)
[2024-02-24 15:34] VITALS: BP 150/85; PULSE 88; RESP 20; TEMP 36.8; O2SAT 98
--- NOTE | 2024-02-24 16:33 | PDOC.CMPRO ---
Date of service: 02/24/24 Time of Service: 16:33 Care Management Progress Note Progress Note Text Progress Note Text: CM was consulted to speak with José Miguel about discharge from the ED, as she is ready for discharge, and per staff, is refusing to leave. CM called and spoke to José Miguel over the phone (CM could not meet in person d/t her covid diagnosis). She was very upset, and her voice was elevated on the phone. CM was having difficulty engaging with her, but listened while she expressed all of her concerns. CM provided empathy and validation, understanding that she is not feeling well, and does not feel ready to go home. She expressed concern about not having anyone at home to care for her, and still feeling sick. CM provided education regarding criteria for admission. CM discussed HH RN, and requested that the provider order this service for a nurse to check in on her, which she was agreeable to. After this she appeared to calm down, and CM asked how she usually transports. She stated that she uses [facility], and requested a private vehicle due to her anxiety. CM coordinated [facility] for transport. José Miguel has a community development aide, Sonam Hernandez, and is connected with the interior plant caretaker at her PCP office. SDOH(Care Management) Screening Will the Patient Participate in the Screening?: Unable to obtain
== END 2024-02-24 16:32 | disposition home or self-care (01) ==
PROVIDERS: Emergency Provider Physician Assistant; PCP Family Medicine
DX: K85.90 Acute pancreatitis without necrosis or infection, unspecified (principal)
CPT/HCPCS: 76770; 80053; 83690; 96374; 99284; 76700; 80320; 81003; 81015; 83605; 83735; 85025; J2405

== ENCOUNTER 2024-03-03 11:35 | Emergency (ER) | payer MEDICAID, SELFPAY ==
[2024-03-03] VITALS (24 sets, daily range): BP systolic 116–168; BP diastolic 46–111; PULSE 64–99; RESP 11–25; TEMP 36.6; O2SAT 93–100
--- NOTE | 2024-03-03 11:30 | RT.EKG_ITS ---
APPROVED REPORT Exam: Resting ECG Reason for Exam: chest pain Patient Location: E HR:77 bpm ECG Measurements Heart Rate 77 AXIS VT 134 P 45 QRSd 91 QRS 48 QT 390 T 63 QTc 442 Conclusion Sinus rhythm...normal P axis, V-rate 60- 99 ST elev, probable normal early repol pattern...ST elevation, age<55 Physician: no stemi, minimal elevation in V1, but this is unchanged from prior ekg on 02/19/23
--- NOTE | 2024-03-03 11:45 | DI.CT_ITS ---
Exam(s) CT ABDOMEN PELVIS W EXAM: CT ABDOMEN PELVIS W CLINICAL HISTORY: RUQ abd pain, Vomiting. TECHNIQUE: Imaging Protocol: Axial computed tomography images with coronal and sagittal reformatted images were created and reviewed CONTRAST MATERIAL: Intravenous: Omnipaque-350 100cc Oral: None COMPARISON: CT CT ABDOMEN PELVIS W from 02/19/2023 FINDINGS: VISUALIZED LUNG BASES: No nodules nor pleural effusions evident. ABDOMEN: There is no ascites. LIVER: Small benign cyst in the right hepatic lobe is unchanged from 02/19/2023. There are no new fo geoff hepatic lesions evident. No dilated intrahepatic ducts. GALLBLADDER/BILIARY: The gallbladder is again noted to be surgically absent. CBD diameter is commens urate with post cholecystectomy status and unchanged from previous. PANCREAS: No evidence of pancreatic mass nor dilatation of the pancreatic duct. SPLEEN: Spleen is not enlarged. No obvious intrasplenic lesions. Splenic and portal veins are paten t. ADRENALS: There are no significant adrenal masses. KIDNEYS:Small benign cyst in the right kidney is unchanged from previous. No new renal findings. Mi ld dilatation of the right collecting system is unchanged and most probably related to the bladder fi ndings dIscussed below. Left kidney unremarkable. No solid renal lesions. ABDOMINAL AORTA: Abdominal aorta is not enlarged. LYMPH NODES:There is no retroperitoneal nor paraaortic adenopathy. ABDOMINAL WALL: No evidence of significant anterior abdominal wall nor inguinal hernia. GI: There is no evidence of bowel obstruction, free air, nor abscess. There are diverticuli in the descending-left colon and sigmoid with no evidence of acute diverticulit is. PELVIS: GI: No evidence of appendicitis.No evidence of sigmoid diverticulitis. LYMPH NODES: There is no intrapelvic nor inguinal adenopathy. REPRODUCTIVE: Uterus and adnexal regions appear age-appropriate. No free fluid. URINARY BLADDER: The urinary bladder is again noted be significantly distended, although slightly les s so than on the previous study of 02/19/2023. There does not appear to be a mass in the bladder nor radiopaque calculi and there are no bladder diverticuli evident. Bladder measures 13.5 cm craniocau tonia by 8 cm AP by 12.7 cm wide. OSSEOUS: No fractures and no significant osseous lesions. Sacroiliac joints appear unremarkable. IMPRESSION: 1. Compared to the prior CT scan of 02/19/2023 there is again noted gross distention of the urinary b ladder with mild dilatation of the right collecting system, slightly left than previous. The left co llecting system is not dilated. There is no obvious mass nor calculi nor clots in the urinary bladde r. Urology follow-up recommended. 2. The gallbladder is again noted be surgically absent. The biliary tree is not significantly dilate d. 3. Other findings as above. Report called by myself to the provider 03/03/2024 1:45 p.m. RADIATION DOSE DELIVERED: 411.77mGy.cm Total DLP DATA REPOSITORY: All CT scans at this facility are submitted to the National Radiology Data Registry (NRDR) Dose Index Registry (DIR) with the [employer] (ACR). RADIATION OPTIMIZATION: All CT scans at this facility use at least one of these dose optimization te chniques: automated exposure control; mA and/or kV adjustment per patient size (includes targeted exa ms where dose is matched to clinical indication); or iterative reconstruction.
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
[2024-03-03 11:56] LABS: Abs Immature Grans 0.03 10^3/uL (0.0-0.06); Absolute Basophil Count 0.06 10^3/uL (0.0-0.2); Absolute Eosinophil Count 0.06 10^3/uL (0.0-0.7); Absolute Lymphocyte Count 1.96 10^3/uL (1.2-3.4); Absolute Monocyte Count 0.64 10^3/uL (0.1-0.8); Absolute Neutrophil Count 6.97 10^3/uL (1.2-6.7); Basophils % 0.6 %; Eosinophils % 0.6 %; HCT 40.1 % (36.0-46.0); HGB 14.3 g/dL (11.2-15.7); Immature Grans % 0.3 %; Lymphocytes % 20.2 %; MCH 31.8 pg (27.0-33.0); MCHC 35.7 % (32.0-36.0); MCV 89 fL (80-95); MPV 8.6 fL (8.0-11.0); Monocytes % 6.6 %; Neutrophils % 71.7 %; Platelet Count 315 10^3/uL (130-400); RDW 10.8 % (11.7-14.6); WBC 9.72 10^3/uL (4.4-10.8)
[2024-03-03] MEDS: Ondansetron 4 MG/2 ML VIAL IVP (12:10)
[2024-03-03 12:19] LABS: ALT 41 U/L (14-59); AST 23 U/L (15-37); Albumin 3.6 g/dL (3.4-5.0); Alkaline Phosphatase 81 U/L (46-116); Anion Gap 10.8 mmol/L (3-11); BUN 5 mg/dL (7-18); Bilirubin, Total 0.38 mg/dL (0.2-1.0); CO2 25.2 mmol/L (21.0-32.0); CREATININE 0.6 mg/dL (0.55-1.02); Chloride 101 mmol/L (98-107); Estimated GFR 107.26 (mL/min/1.73m2); Glucose 128 mg/dL (74-106); Lipase 71 U/L (16-77); NT-proBNP 102 pg/mL (<300); Potassium 3.6 mmol/L (3.5-5.1); Sodium 137 mmol/L (136-145); Total Protein 7.5 g/dL (6.4-8.2); Troponin I 5 ng/L (<or=51)
[2024-03-03 12:21] LABS: Lithium < 0.2 mmol/L (0.6-1.2)
[2024-03-03] MEDS: Normal Saline - Diluent 50 ML VIAL IJ (12:56)
[2024-03-03] MEDS: Omnipaque 350 MG/ML 100 ML BTL IJ (12:56)
[2024-03-03] MEDS: LORazepam 2 MG/ML VIAL 0.5 MG IVP (13:21)
[2024-03-03 13:46] LABS: Troponin I 4 ng/L (<or=51)
--- NOTE | 2024-03-03 14:25 | DI.VRAD_ITS ---
PROCEDURE INFORMATION: Exam: CT Abdomen And Pelvis With Contrast Exam date and time: 03/03/2024 1:03 PM Age: 53 years old Clinical indication: Other: Ruq abd pain, vomiting; Patient HX: HX of panreatitis TECHNIQUE: Imaging protocol: Computed tomography of the abdomen and pelvis with contrast. Contrast material: OMNIPAQUE 350; Contrast volume: 85 ml; Contrast route: INTRAVENOUS (IV); COMPARISON: CT ABDOMEN PELVIS W 02/19/2023 9:23 PM FINDINGS: Lungs: Visualized lung bases are clear. Liver: Normal. No mass or intrahepatic biliary ductal dilatation. Small cyst in the right lobe. Gallbladder and biliary ducts: Gallbladder has been removed. The common bile duct is mildly dilated to about 11 mm with intrahepatic ductal dilatation. This is new compared to the previous exam. No sign of obstructing calculus. Pancreas: Normal. No mass or ductal dilation. Spleen: Normal. No splenomegaly. Adrenal glands: There is some fullness of the adrenal glands bilaterally but no discrete nodule. Kidneys and ureters: 13 mm cortical cyst in the right kidney. No renal calculus or obstruction. Stomach and bowel: Stomach and small bowel are normal. There is extensive diverticular disease in the descending colon. No acute inflammatory changes. Appendix: No evidence of appendicitis. Intraperitoneal space: Unremarkable. No free air. No significant fluid collection. Vasculature: Unremarkable. No abdominal aortic aneurysm or significant atherosclerosis. Lymph nodes: No enlarged retroperitoneal or mesenteric lymph nodes. Urinary bladder: The bladder is prominently distended to about 13.5 cm. Normal thin wall. No mass. Reproductive: Unremarkable as visualized. Bones/joints: Unremarkable. No acute fracture. No lytic lesion. Soft tissues: Unremarkable. IMPRESSION: 1. Mild dilatation of common bile duct and intrahepatic ducts is new compared to prior exam. No definite obstructing lesion identified. 2. There is extensive diverticulosis of the descending colon but without signs of acute diverticulitis. Dictated and Authenticated by: Jorge Alberto Villafuerte MD. Ordering:MARLINE Whitlock MD
[2024-03-03 15:30] LABS: Bilirubin Negative (Negative); Blood Negative (Negative); Clarity Clear (Clear); Glucose Negative (Negative); Ketones Negative (Negative); Leukocyte Esterase Negative (Negative); Nitrite Negative (Negative); Urobilinogen 0.2 mg/dL (Up to 0.2)
[2024-03-03 16:07] LABS: *AMPHETAMINES SCREEN URINE Negative (Negative); *BARBITURATES SCREEN URINE Negative (Negative); *BENZODIAZEPINES SCREEN URINE Negative (Negative); Cannabinoids THC Negative (Negative); Cocaine Screen,Urine Negative (Negative); METHADONE URINE SCREEN Negative (Negative); OPIATES URINE SCREEN Negative (Negative)
[2024-03-03 16:12] LABS: Tricyclic Antidepressants Negative (Negative)
[2024-03-03] MEDS: Ondansetron O.D.T. 4 MG TABEF, 3 TABS/BTL PO (18:39)
[2024-03-03] MEDS: metFORMIN 500 MG TAB 1500 MG PO (18:39)
[2024-03-03] MEDS: Levothyroxine 88 MCG TAB 264 MCG PO (18:39)
--- NOTE | 2024-03-03 22:49 | PDOC.MHCN ---
Date of service: 03/03/24 Time of Service: 22:50 Mental Health Emergency Note Release [facility] release signed:: Yes Reason for Visit The client is known to [facility] and is followed by the [facility] program. She reported being hospitalized 8 times in the past and the last being at [facility] a week or two ago when she was diagnosed with COVID. She does have some missed appointments recently. The client called earlier with c/o physical and emotional pain. She was encouraged to go to the ED to see if she had any medical issues going on. She was hesitant to go until this clinician informed her she would meet her there. She stated that the ED always kick me out. This assessment is completed face to face in the ED. In the last 2 weeks has the pt presented for ES prior to today?: Unknown Client Information Client is: Adult Outpatient Non Suicidal Self Injury Current: No History: No Safety Risk/Harm to Self or Others Current Ideation to Harm Self or Others: Yes to self. (Just want to ) Intent: no, has no intent. Plan: no.does not have a plan. History of suicide attempt: yes,history of suicide attempt reported. Details of previous suicide attempt: over dose and cutting wrists and to others. (Ex however she does not know where he is. ) Intent: No Plan: no, does not have a plan. Risk: Does risk to harm exist?: yes. Access to means: Yes. Types of Means: Other weapons and Medication. Counseling provided: Yes Risk: Moderate Risk Duty to warn indicated: No Asssessment/Mental Status Appearance: Well groomed Attitude: Cooperative Behavior: Unremarkable Speech: Normal Affect: Cogruent with mood Mood: Stressed, Depressed and Anxious Thought process: Goal directed Hallucinations: No Delusions: No Attention: Unremarkable Perception: Not impaired Orientation: Fully orientated Memory: Intact Insight: Fair Judgement: Fair Neurovegetative Symptoms Sleep: Decrease Appetitie: Decrease Interests: Decrease Energy: Decrease Libido: Not applicable Substance Use: Do you use nicotine?: No Have you used substances in the last 7 days?: No Additional Issues: Assaultive/Threatening Behavior: No Medical Concerns: No Client engaged in active self harm w/weapon: No Threatening to run away: No Child reported abuse/neglect: No Voluntarily presenting for services: Yes Domestic violence is a concern: No Extreme Psychosis or extreme behavior is present: Yes Impression The client is a 53 year old, Irish, female who lives independently in [place], [place]. She is disabled and uses She/Her pronouns. She has a BS in [place] and reports she was never able to find a job because of her accent. All underrepresented identifiers were honored during this assessment. Due to the client's level of anxiety and fear no screening tools could be completed. The client reported that her psychiatric medications cause her pain in her pancreas and liver and she does not want to take them. She stated I am so sick, shaking, confused, vomiting and I want to go back home. I am scared of dying alone. The client presents lying in her hospital bed, in PJ's and has a blank stare about her. She is observed being extremely tearful and sad. Additionally she appears anxious and struggles to stay focused. She is fully oriented. Resources Reosurces reviewed and given:: [facility] Plan/Disposition Recommended Disposition: Crisis bed, facility contacted. Status of Crisis Bed acceptance: Accepted/transfer pending. Plan: After discussing this client with the attending we agreed to make a referral to the CARE Bed. The client was accepted and transported to the CARE Bed by CB staff. Person reported agreement to plan: Yes Reports/communication Outcome discussed with: ED/Personnel
== END 2024-03-03 18:44 | disposition home or self-care (01) ==
PROVIDERS: Emergency Provider Registered Nurse Emergency; PCP Family Medicine
DX: N32.89 Other specified disorders of bladder (principal); Z90.49 Acquired absence of other specified parts of digestive tract; R11.2 Nausea with vomiting, unspecified
CPT/HCPCS: 00123; 80053; 80307; 83690; 87426; 93005; 96374; 96375; 99285; 74177; 80178; 81003; 83735; 83880; 84484; 85025; 93010; 99284; J2060; J2405; J3490

== ENCOUNTER 2024-03-27 15:39 | Emergency (ER) | payer MEDICAID, SELFPAY ==
[2024-03-27] MEDS: Droperidol 5 MG/2 ML VIAL IVP (16:15)
[2024-03-27 16:33] VITALS: PULSE 90; RESP 18; O2SAT 96
[2024-03-27 16:37] LABS: Abs Immature Grans 0.02 10^3/uL (0.0-0.06); Absolute Basophil Count 0.04 10^3/uL (0.0-0.2); Absolute Eosinophil Count 0.09 10^3/uL (0.0-0.7); Absolute Lymphocyte Count 2.48 10^3/uL (1.2-3.4); Absolute Monocyte Count 0.77 10^3/uL (0.1-0.8); Absolute Neutrophil Count 4.33 10^3/uL (1.2-6.7); Basophils % 0.5 %; Eosinophils % 1.2 %; HCT 37.7 % (36.0-46.0); HGB 13.3 g/dL (11.2-15.7); Immature Grans % 0.3 %; Lymphocytes % 32.1 %; MCH 31.5 pg (27.0-33.0); MCHC 35.3 % (32.0-36.0); MCV 89 fL (80-95); MPV 8.4 fL (8.0-11.0); Neutrophils % 55.9 %; Platelet Count 303 10^3/uL (130-400); RBC 4.22 10^6/uL (3.93-5.22); RDW 11.7 % (11.7-14.6); RDW-SD 37.5 fL; WBC 7.73 10^3/uL (4.4-10.8)
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
[2024-03-27 16:54] LABS: ALT 71 U/L (14-59); AST 38 U/L (15-37); Albumin 3.7 g/dL (3.4-5.0); Alkaline Phosphatase 76 U/L (46-116); Anion Gap 8.5 mmol/L (3-11); BUN 6 mg/dL (7-18); Bilirubin, Total 0.39 mg/dL (0.2-1.0); CO2 27.5 mmol/L (21.0-32.0); CREATININE 0.5 mg/dL (0.55-1.02); Chloride 101 mmol/L (98-107); ETHANOL BLOOD < 3.0 mg/dL (<10); Estimated GFR 112.08 (mL/min/1.73m2); Glucose 80 mg/dL (74-106); Lipase 58 U/L (16-77); Potassium 3.4 mmol/L (3.5-5.1); Sodium 137 mmol/L (136-145); Total Protein 7.3 g/dL (6.4-8.2)
[2024-03-27 17:00] LABS: *AMPHETAMINES SCREEN URINE Negative (Negative); *BARBITURATES SCREEN URINE Negative (Negative); *BENZODIAZEPINES SCREEN URINE Negative (Negative); Cannabinoids THC Negative (Negative); Cocaine Screen,Urine Negative (Negative); METHADONE URINE SCREEN Negative (Negative); OPIATES URINE SCREEN Negative (Negative)
[2024-03-27 17:10] LABS: FREE T4 1.59 ng/dL (0.76-1.46)
[2024-03-27 17:11] LABS: Tricyclic Antidepressants Negative (Negative)
[2024-03-27] MEDS: lamoTRIgine 100 MG TAB PO (19:14)
[2024-03-27] MEDS: lamoTRIgine 25 MG TAB PO (19:14)
[2024-03-27] MEDS: Budesonide/Formoterol 160/4.5 6 GM 60 PUFF INH IH (19:15)
[2024-03-27] MEDS: QUEtiapine 100 MG TAB PO (19:15)
--- NOTE | 2024-03-27 23:05 | W.EDPROG ---
Date of service: 03/27/24 Time of Service: 22:30 Medical Decision Making This patient was signed out to me. Please see previous notes for H&P and initial eval. In brief, 53yo F with hx biploar presenting with SI & paranoia Medically cleared, pending voluntary inpatient placement. Holding levothyroxine for mildly elevated free T4, otherwise home meds ordered. Overnight no acute events. Did not wake patient for assessment. Will be signed out to oncoming physician, plan remains as above. Quality:[facility] Health Related Social Needs: No Data to Display Sign Out Sign Out Data: Sign Out Comment: pending voluntary inpatient placement very paranoid, reporting that she is suicidal to [facility] ,no clear plan to me mild elevation in FT4, am holding levothyroxine while here Last updated by Rafiq Hanson MD at 03/27/24 22:14 Discharge Plan Discharge Details Chief Complaint: PsychEval Primary Care Provider: Brooks Hamm ED Provider: Teri Alatorre Home Meds and New Rx's Prescriptions: No Action fluticasone propionate [Flonase Allergy Relief] 50 mcg/actuation spray,suspension 1 spray ONEAL DAILY PRN (Reason: nasal congestion) Qty: 36.4 1RF (DME) compressor, for nebulizer Device See Rx Instructions .ROUTE .MEDSUPPLY Qty: 1 0RF Rx Instructions: QID for asthma exacerbation; Daily PRN Wheezing budesonide-formoterol [Symbicort] 160-4.5 mcg/actuation HFA aerosol inhaler 2 puff inhalation BID Qty: 10.2 6RF ipratropium-albuterol 0.5 mg-3 mg(2.5 mg base)/3 mL solution for nebulization 3 ml inhalation Q6H PRN (Reason: wheezing) Qty: 90 1RF lamotrigine 25 mg tablet 25 mg PO BID diclofenac sodium [Arthritis Pain (diclofenac)] 1 % gel 2 g topical QID Qty: 100 0RF ondansetron HCl 4 mg tablet 4 mg PO Q8H Qty: 30 3RF (DME) blood-glucose meter [FreeStyle Lite Meter] Kit See Rx Instructions .Route Qty: 1 0RF Rx Instructions: Check Blood sugar daily. E11.9 (DME) FreeStyle Lite Strips Strip See Rx Instructions .Route Qty: 100 3RF Rx Instructions: Check blood sugars daily, Dx: E11.9, to keep HbA1c below 6.5% (DME) lancets [FreeStyle Lancets] 28 gauge misc See Rx Instructions .ROUTE .MEDSUPPLY Qty: 100 3RF Rx Instructions: Use once a day for goal A1c < 7; Dx E11.9 famotidine 40 mg tablet 40 mg PO DAILY Qty: 90 3RF hydrocortisone [Cortisone (hydrocortisone)] 1 % cream 1 applic [place] TID PRN (Reason: hemorrhoid / skin irritation) Qty: 28.4 2RF Rx Instructions: PHARM to confirm [place] appropriate calcium carbonate [Calcium Antacid] 200 mg calcium (500 mg) tablet,chewable 400 mg PO Q4H PRN (Reason: heartburn) metformin 500 mg tablet See Rx Instructions .ROUTE .COMPLEX Qty: 90 3RF Dose Instruction: TAKE 1 TABLET BY MOUTH DAILY Rx Instructions: TAKE 1 TABLET BY MOUTH DAILY polyethylene glycol 3350 4 gram powder in packet 17 g PO BID Qty: 144 3RF sennosides-docusate sodium [Senna with Docusate Sodium] 8.6-50 mg tablet 2 tab-cap PO BID Qty: 360 3RF melatonin 3 mg tablet 3 mg PO HS PRN albuterol sulfate 90 mcg/actuation HFA aerosol inhaler 1 - 2 puff inhalation Q4H PRN (Reason: shortness of breath or wheezing) Qty: 1 3RF Rx Instructions: Dispense brand of albuterol inhaler covered by patient's insurance levothyroxine 88 mcg tablet 88 mcg PO DAILY Rx Instructions: TAKE 1 TABLET BY MOUTH DAILY
[2024-03-28] MEDS: lamoTRIgine 100 MG TAB PO (08:41)
[2024-03-28] MEDS: Polyethylene Glycol 3350 17 GM PACKET PO ×2 (08:41→08:42)
[2024-03-28] MEDS: metFORMIN 500 MG TAB PO (08:41)
[2024-03-28] MEDS: lamoTRIgine 25 MG TAB PO (08:41)
--- NOTE | 2024-03-28 09:28 | CMSP_ITS ---
Date of service: 03/28/24 Time of Service: 09:28 Care Management Safety Plan Status Status: Voluntary Reason for Wait Reason for Wait: Inpatient Admission Safety Plan Safety Plan: VOLUNTARY FOR INPATIENT PSYCHIATRIC STABILIZATION.? Patient is appropriate in all interactions since arriving at [facility]; Pt has demonstrated appropriate coping and communication skills, has articulated his or her needs and concerns and is fully engaged during staff interactions. Safety plan has been established with patient, and care team, to adhere to patient goals, identify restrictions based on behavioral status, address nutrition, and determine allowed personal belongings, tools for hygiene and personal care. Determine level of activity including ambulation, level of superv ision, visitors, and determine privileges based on behaviors and level of engagement by pt. VOLUNTARY SAFETY PLAN: 1. Will remain on suicide precautions, in paper clothes 2. Will remain in Zone B under direct supervision of one-on-one staff at all times provided by [employer]; LADONNA, EMISSIONS INSPECTOR early childhood coordinator. 3. May have paper cups, plates, finger foods as well as a cardboard spoon with which to eat meals. 4. Follow [facility] Management of the Admitted Behavioral Health Patient policy. 5. Shower available in Zone B without restriction. 6. Personal belongings-soft items permitted at RN discretion. 7. Visitors-none at this time. 8. Activities: soft cart items approved per RN discretion. 9.? Bathroom available in Zone B without restriction. 10. Phone: limited to [facility] cordless phone at RN discretion. Referral was sent to [facility] today. Due to VOLUNTARY status, if patient wishes to leave [facility], staff will contact [facility] Crisis Screener ([phone]) and Fisher Seal ([phone]) as soon as possible. In the event of elopement, notify [facility] Police ([phone]).
--- NOTE | 2024-03-28 09:50 | ED.PROG_ITS ---
Date of service: 03/28/24 Time of Service: 09:50 Medical Decision Making Received a call from nurse practitioner Ana Maria Pandya at [facility]. They have accepted the patient for transfer. Patient has remained stable. TSH was slightly low and free T4 slightly high, levothyroxine has been held. Patient is otherwise been hemodynamically stable, medically cleared, and appropriate for transfer. I have extensively reviewed the treatment plan with the patient. I have addressed all patient concerns at this time. I have also discussed the plan with the admitting physician and they agree with the current assessment and plan and have agreed to assume responsibility for the patient. All parties demonstrate verbal understanding and agreement with our assessment and plan at this time. The documentation in this chart was dictated using WeShow dictation software. Please excuse any dictation errors. Quality:SDOH Health Related Social Needs: No Data to Display Sign Out Sign Out Data: Sign Out Comment: pending voluntary inpatient placement very paranoid, reporting that she is suicidal to [facility] ,no clear plan to me mild elevation in FT4, am holding levothyroxine while here Last updated by Rafiq Hanson MD at 03/27/24 22:14 Sign Out Comment: Bipolar, SI, paranoia. Pending voluntary placement. holding home levothyroxine due to mildly elevated free T4 Last updated by Teri Alatorre MD at 03/28/24 07:42 Discharge Plan Disposition Patient Disposition: Psychiatric Hospital/Unit Specific Psychiatric Facility: [facility] Condition: Good Discharge Details Chief Complaint: PsychEval Clinical Impression: Depression, Suicidal ideation Primary Care Provider: Brooks Hamm ED Provider: Yusuf Carney Home Meds and New Rx's Prescriptions: No Action fluticasone propionate [Flonase Allergy Relief] 50 mcg/actuation spray,suspension 1 spray ONEAL DAILY PRN (Reason: nasal congestion) Qty: 36.4 1RF (DME) compressor, for nebulizer Device See Rx Instructions .ROUTE .MEDSUPPLY Qty: 1 0RF Rx Instructions: QID for asthma exacerbation; Daily PRN Wheezing budesonide-formoterol [Symbicort] 160-4.5 mcg/actuation HFA aerosol inhaler 2 puff inhalation BID Qty: 10.2 6RF ipratropium-albuterol 0.5 mg-3 mg(2.5 mg base)/3 mL solution for nebulization 3 ml inhalation Q6H PRN (Reason: wheezing) Qty: 90 1RF lamotrigine 25 mg tablet 25 mg PO BID diclofenac sodium [Arthritis Pain (diclofenac)] 1 % gel 2 g topical QID Qty: 100 0RF ondansetron HCl 4 mg tablet 4 mg PO Q8H Qty: 30 3RF (DME) blood-glucose meter [FreeStyle Lite Meter] Kit See Rx Instructions .Route Qty: 1 0RF Rx Instructions: Check Blood sugar daily. E11.9 (DME) FreeStyle Lite Strips Strip See Rx Instructions .Route Qty: 100 3RF Rx Instructions: Check blood sugars daily, Dx: E11.9, to keep HbA1c below 6.5% (DME) lancets [FreeStyle Lancets] 28 gauge misc See Rx Instructions .ROUTE .MEDSUPPLY Qty: 100 3RF Rx Instructions: Use once a day for goal A1c < 7; Dx E11.9 famotidine 40 mg tablet 40 mg PO DAILY Qty: 90 3RF hydrocortisone [Cortisone (hydrocortisone)] 1 % cream 1 applic MI TID PRN (Reason: hemorrhoid / skin irritation) Qty: 28.4 2RF Rx Instructions: PHARM to confirm MI appropriate calcium carbonate [Calcium Antacid] 200 mg calcium (500 mg) tablet,chewable 400 mg PO Q4H PRN (Reason: heartburn) metformin 500 mg tablet See Rx Instructions .ROUTE .COMPLEX Qty: 90 3RF Dose Instruction: TAKE 1 TABLET BY MOUTH DAILY Rx Instructions: TAKE 1 TABLET BY MOUTH DAILY polyethylene glycol 3350 4 gram powder in packet 17 g PO BID Qty: 144 3RF sennosides-docusate sodium [Senna with Docusate Sodium] 8.6-50 mg tablet 2 tab-cap PO BID Qty: 360 3RF melatonin 3 mg tablet 3 mg PO HS PRN albuterol sulfate 90 mcg/actuation HFA aerosol inhaler 1 - 2 puff inhalation Q4H PRN (Reason: shortness of breath or wheezing) Qty: 1 3RF Rx Instructions: Dispense brand of albuterol inhaler covered by patient's insurance levothyroxine 88 mcg tablet 88 mcg PO DAILY Rx Instructions: TAKE 1 TABLET BY MOUTH DAILY
[2024-03-28 10:43] VITALS: BP 127/81; PULSE 89; RESP 16; O2SAT 100
[2024-03-28 11:26] LABS: Bilirubin Negative (Negative); Blood Negative (Negative); Clarity Clear (Clear); Glucose 100 mg/dL (Negative); Ketones Negative (Negative); Leukocyte Esterase Small (Negative); Nitrite Negative (Negative); Urobilinogen 0.2 mg/dL (Up to 0.2)
--- NOTE | 2024-03-28 11:45 | PDOC.CMPRO ---
Date of service: 03/28/24 Time of Service: 11:45 Care Management Progress Note Progress Note Text Progress Note Text: José Miguel has reportedly been appropriate in her interactions. She has been accepted at [facility], and transportation was coordinated by ER staff. Discharge Potential Discharge Needs: Other ([facility]) Anticipated Barriers to Discharge: None Identified SDOH(Care Management) Screening Will the Patient Participate in the Screening?: Unable to obtain
[2024-03-28 11:53] LABS: Bacteria Negative HPF (Negative); C & S Indicated? Yes; Casts Negative LPF (Negative); Crystals Negative HPF (Negative); Epithelial Cells Negative HPF (Negative); Mucus Negative (Negative); RBC Negative HPF (0-2)
[2024-03-28] MEDS: Fosfomycin Tromethamine 3 GM PACKET PO (12:18)
== END 2024-03-28 12:39 ==
PROVIDERS: Emergency Medicine; Emergency Provider Student in an Organized Health Care Education/Training Program; PCP Family Medicine
DX: R45.851 Suicidal ideations (principal); F32.A Depression, unspecified; E11.9 Type 2 diabetes mellitus without complications; Z79.84 Long term (current) use of oral hypoglycemic drugs; Z91.148 Patient's other noncompliance with medication regimen for other reason
CPT/HCPCS: 00123; 36415; 80053; 80307; 81025; 83690; 96374; 99285; 80320; 81003; 81015; 84439; 84443; 85025; 87086; J1790; J3490

== ENCOUNTER 2024-04-23 12:51 | Outpatient (CLI) | payer MEDICAID, SELFPAY ==
[2024-04-23 09:04] LABS: HCT 39.7 % (36.0-46.0); HGB 13.2 g/dL (11.2-15.7); MCHC 33.2 % (32.0-36.0); MCV 96 fL (80-95); MPV 8.9 fL (8.0-11.0); Platelet Count 286 10^3/uL (130-400); RBC 4.13 10^6/uL (3.93-5.22); RDW 12.2 % (11.7-14.6); RDW-SD 43.2 fL; WBC 7.38 10^3/uL (4.4-10.8)
[2024-04-23 09:31] LABS: Calculated LDL 131 mg/dL (<100); Cholesterol 244 mg/dL (<200); HDL Cholesterol 101 mg/dL (40-60); Triglyceride 63 mg/dL (<150)
[2024-04-23 10:28] LABS: ALT 59 U/L (14-59); AST 26 U/L (15-37); Albumin 3.6 g/dL (3.4-5.0); Alkaline Phosphatase 102 U/L (46-116); Anion Gap 7.8 mmol/L (3-11); BUN 11 mg/dL (7-18); Bilirubin, Total 0.35 mg/dL (0.2-1.0); CO2 30.2 mmol/L (21.0-32.0); CREATININE 0.7 mg/dL (0.55-1.02); Calcium 9.8 mg/dL (8.5-10.1); Chloride 104 mmol/L (98-107); Estimated GFR 103.35 (mL/min/1.73m2); Glucose 97 mg/dL (74-106); Potassium 3.8 mmol/L (3.5-5.1); Sodium 142 mmol/L (136-145)
[2024-04-25 12:38] LABS: Lamotrigine 3.6 mcg/mL (3.0-15.0)
== END 2024-04-23 12:52 | disposition home or self-care (01) ==
LOC: LBO 12:51
PROVIDERS: PCP Family Medicine; Referring Provider Hospitalist; Visit Provider Student in an Organized Health Care Education/Training Program
DX: F31.9 Bipolar disorder, unspecified (principal)
CPT/HCPCS: 36415; 80053; 80061; 80175; 85027

== ENCOUNTER 2024-04-25 14:00 | Outpatient (REF) | payer MEDICAID, SELFPAY ==
[2024-04-26 16:30] LABS: Bilirubin Negative (Negative); Blood Negative (Negative); Clarity Clear (Clear); Glucose Negative (Negative); Ketones Negative (Negative); Leukocyte Esterase Negative (Negative); Nitrite Negative (Negative); Specific Gravity <= 1.005 (1.005-1.025); Urobilinogen 0.2 mg/dL (Up to 0.2)
== END 2024-04-25 14:01 | disposition home or self-care (01) ==
LOC: LBN 14:00
PROVIDERS: PCP Family Medicine; Visit Provider Urology
DX: R39.9 Unspecified symptoms and signs involving the genitourinary system (principal)
CPT/HCPCS: 81003; 87086

== ENCOUNTER 2024-05-03 08:44 | Outpatient (CLI) | payer MEDICAID, SELFPAY ==
[2024-05-03 09:56] LABS: Calculated LDL 107 mg/dL (<100); Cholesterol 221 mg/dL (<200); HDL Cholesterol 97 mg/dL (40-60); Triglyceride 86 mg/dL (<150)
== END 2024-05-03 08:45 | disposition home or self-care (01) ==
LOC: LBO 08:44
PROVIDERS: PCP Student in an Organized Health Care Education/Training Program; Visit Provider Student in an Organized Health Care Education/Training Program
DX: F31.9 Bipolar disorder, unspecified (principal)
CPT/HCPCS: 36415; 80061; 84443

== ENCOUNTER 2024-05-04 15:56 | Observation (INO) | payer MEDICAID, SELFPAY ==
[2024-05-04 16:01] VITALS: BP 148/96; PULSE 75; RESP 20; O2SAT 98
[2024-05-04 16:07] VITALS: BP 148/96; PULSE 75; RESP 20; TEMP 36.4; O2SAT 98
[2024-05-04 16:25] LABS: Abs Immature Grans 0.04 10^3/uL (0.0-0.06); Absolute Basophil Count 0.07 10^3/uL (0.0-0.2); Absolute Eosinophil Count 0.18 10^3/uL (0.0-0.7); Absolute Lymphocyte Count 2.43 10^3/uL (1.2-3.4); Absolute Neutrophil Count 5.34 10^3/uL (1.2-6.7); Basophils % 0.8 %; HCT 37.4 % (36.0-46.0); HGB 13.1 g/dL (11.2-15.7); Immature Grans % 0.4 %; Lymphocytes % 27.1 %; MCH 31.5 pg (27.0-33.0); MCV 90 fL (80-95); MPV 8.8 fL (8.0-11.0); Neutrophils % 59.7 %; Platelet Count 305 10^3/uL (130-400); RBC 4.16 10^6/uL (3.93-5.22); RDW 11.3 % (11.7-14.6); RDW-SD 37.2 fL; WBC 8.96 10^3/uL (4.4-10.8)
[2024-05-04 16:26] LABS: Bilirubin Negative (Negative); Blood Trace-intact (Negative); Clarity Clear (Clear); Glucose Negative (Negative); Ketones Negative (Negative); Leukocyte Esterase Negative (Negative); Nitrite Negative (Negative); Urobilinogen 0.2 mg/dL (Up to 0.2)
--- NOTE | 2024-05-04 16:27 | NUR.NOTE ---
Nursing Note: Patient refused ekg at 1615 MD aware of situation
--- NOTE | 2024-05-04 16:30 | DI.CT_ITS ---
Exam(s) CT ABDOMEN PELVIS W EXAM: CT ABDOMEN PELVIS W CLINICAL HISTORY: Hx pancreatitis. TECHNIQUE: Imaging Protocol: Axial computed tomography images with coronal and sagittal reformatted images were created and reviewed CONTRAST MATERIAL: Intravenous: Omnipaque 350 Contrast volume:100 ml Oral: no COMPARISON: CT CT ABDOMEN PELVIS W from 03/03/2024 FINDINGS: ABDOMEN and PELVIS: Lung Bases: No acute findings. Liver: Normal density. No suspicious mass. Gallbladder and biliary tract: Status post cholecystectomy. No biliary dilation. Pancreas: Normal density. No abnormal calcifications or inflammatory process. No evidence of mass. Spleen: Normal. Kidneys: Normal size, contour and axis. No radiodense stones. There is mild dilatation of both renal pelves and right ureter. No suspicious masses seen. Adrenal glands: No masses seen. Vasculature: Abdominal aorta non-dilated. Soft tissues: Tiny fat containing umbilical hernia Bladder: The urinary bladder noted to be abnormally distended, to the level of the umbilicus. No earnest ss wall thickening. No calculi.No focal mass. Bowel: No obstruction. No bowel wall thickening. Appendix normal. Peritoneal cavity: No ascites. No focal collection. No mesenteric inflammatory response. No free air . Bones: Unremarkable for age. Reproductive organs: Unremarkable. Lymph nodes: No pathologically enlarged lymph nodes. IMPRESSION:: Markedly distended urinary bladder. No focal bladder abnormality. Mild bilateral hydronephrosis secondary to overly distended urinary bladder. No evidence of pancreatitis. RADIATION DOSE DELIVERED: Total DLP DATA REPOSITORY: All CT scans at this facility are submitted to the National Radiology Data Registry (NRDR) Dose Index Registry (DIR) with the [employer] (ACR). RADIATION OPTIMIZATION: All CT scans at this facility use at least one of these dose optimization te chniques: automated exposure control; mA and/or kV adjustment per patient size (includes targeted exa ms where dose is matched to clinical indication); or iterative reconstruction.
[2024-05-04 16:32] LABS: Lab Add On Test DONE
[2024-05-04 16:35] LABS: Bacteria Negative HPF (Negative); C & S Indicated? No; Crystals Negative HPF (Negative); Epithelial Cells Negative HPF (Negative); Mucus Negative (Negative); RBC 0-2 HPF (0-2); WBC Negative HPF (0-5)
[2024-05-04 16:36] LABS: ALT 34 U/L (14-59); AST 20 U/L (15-37); Albumin 3.6 g/dL (3.4-5.0); Alkaline Phosphatase 104 U/L (46-116); Anion Gap 6.9 mmol/L (3-11); BUN 7 mg/dL (7-18); Bilirubin, Total 0.28 mg/dL (0.2-1.0); CO2 28.1 mmol/L (21.0-32.0); CREATININE 0.6 mg/dL (0.55-1.02); Calcium 9.1 mg/dL (8.5-10.1); Chloride 89 mmol/L (98-107); Estimated GFR 107.26 (mL/min/1.73m2); Glucose 128 mg/dL (74-106); Lipase 51 U/L (<78); Magnesium 1.8 mg/dL (1.8-2.4); Potassium 3.3 mmol/L (3.5-5.1); Total Protein 7.6 g/dL (6.4-8.2); Troponin I 4 ng/L (<or=51)
[2024-05-04 17:02] LABS: Sodium 124 mmol/L (136-145)
[2024-05-04 17:09] LABS: HCG Qual (Serum) Negative
[2024-05-04] MEDS: Ondansetron 4 MG/2 ML VIAL IVP (17:30)
[2024-05-04] MEDS: Omnipaque 350 MG/ML 100 ML BTL IJ (18:30)
[2024-05-04] MEDS: Normal Saline - Diluent 50 ML VIAL IJ (18:31)
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
--- NOTE | 2024-05-04 19:56 | NUR.NOTE ---
pt refused lab work including repeat troponins, urine sodium and self cathing supplies. pt was made aware that with lack of repeat lab work it could inhibit her care. pt is aware.
[2024-05-04 20:21] LABS: Troponin I 5 ng/L (<or=51)
[2024-05-04 20:55] VITALS: BP 98/74; PULSE 68; RESP 16; O2SAT 99
--- NOTE | 2024-05-04 21:08 | W.PC.ACHO ---
Registration Status: Primary Language: Preferred Language: ED Information & Data Chief Complaint Abd Prob 05/04/24 20:00 Triage Note Pt arrives to ED c/o abd 05/04/24 16:01 pain and hypoglycemia. Pt states she has a hx of pancreatitis and elevated LFTs. BGL = 130 per EMS Medical / Surgical History (Last Reviewed 03/03/24 @ 11:49 by Chinyere Marie NP) Pharyngitis Depo-Provera contraceptive status History of VIVIANA positive for HSV (09/11/13) History of cervical dysplasia History of endometrial biopsy (02/08/20) PTSD (post-traumatic stress disorder) DAVIS (obstructive sleep apnea) Ovarian cyst Diverticulitis large intestine Yeast dermatitis Benign mole (01/08/13) (Last Reviewed 03/03/24 @ 11:49 by Chinyere Marie NP) H/O esophagogastroduodenoscopy (12/06/23) History of colonoscopy (~11/2022) S/P appendectomy (~1980) H/O: (~2002) History of right cataract surgery (~08/24/16) History of left cataract surgery (~09/14/16) Cholecystectomy (~2009) Most Recent Vital Signs Temperature 36.4 C 05/04/24 16:07 Temperature Source Oral 05/04/24 16:07 Pulse 68 05/04/24 20:55 Respiratory Rate 16 05/04/24 20:55 Respiratory Effort Normal, Non-Labored 05/04/24 16:06 Blood Pressure 98/74 L 05/04/24 20:55 Blood Pressure Position Supine 05/04/24 16:07 Pulse Oximetry 99 05/04/24 20:55 Oxygen Delivery Method Room Air 05/04/24 20:55 Oxygen Flow Rate 0 05/04/24 20:55 Pain Level 10 05/04/24 16:07 Allergies ibuprofen (From Advil) Allergy (Intermediate, Verified 05/04/24 16:05) Skin Rash pollen extracts Allergy (Intermediate, Verified 05/04/24 16:05) runny nose Watery and itchy eyes; runny nose latex Allergy (Verified 05/04/24 16:05) Skin Rash ADHESIVE TAPE Allergy (Unknown, Uncoded 05/04/24 16:05) HER SKIN PEELS OFF Paper tape RUBBING ALCOHOL Allergy (Unknown, Uncoded 05/04/24 16:05) RASH Precautions Isolation Standard precaution 05/04/24 16:06 Active Medications Generic Name Dose Route Start Last Admin Trade Name Tom PRN Reason Stop Dose Admin Iohexol 100 ml 05/04/24 18:30 05/04/24 18:30 Omnipaque 350 Mg/Ml 100 Ml Btl IJ 06/03/24 23:59 100 ml DIRECTED LAY Administration Sodium Chloride 50 ml 05/04/24 18:45 05/04/24 18:31 Normal Saline - Diluent 50 Ml Vial IJ 50 ml .FOR DI USE LAY Administration IV IV Catheter Type [Right Diffusics Antecubital] IV Catheter Gauge [Right 20 Antecubital] Diagnostics 05/04/24 05/04/24 05/04/24 Range/Units 19:34 17:11 16:30 WBC (4.4-10.8) 10^3/uL RBC (3.93-5.22) 10^6/uL Hgb (11.2-15.7) g/dL Hct (36.0-46.0) % MCV (80-95) fL MCH (27.0-33.0) pg MCHC (32.0-36.0) % RDW (11.7-14.6) % Plt Count (130-400) 10^3/uL MPV (8.0-11.0) fL Immature Gran % % Neutrophils % % Lymphocytes % % Monocytes % % Eosinophils % % Basophils % % Nucleated RBC % (0.0-0.3) % Absolute Neutrophils (1.2-6.7) 10^3/uL Absolute Lymphocytes (1.2-3.4) 10^3/uL Absolute Monocytes (0.1-0.8) 10^3/uL Absolute Eosinophils (0.0-0.7) 10^3/uL Absolute Basophils (0.0-0.2) 10^3/uL Sodium (136-145) mmol/L Potassium (3.5-5.1) mmol/L Chloride (98-107) mmol/L Carbon Dioxide (21.0-32.0) mmol/L Anion Gap (3-11) mmol/L BUN (7-18) mg/dL Creatinine (0.55-1.02) mg/dL Est GFR (CKD-EPI 2020) (mL/min/1.73m2) Glucose (74-106) mg/dL Calcium (8.5-10.1) mg/dL Magnesium (1.8-2.4) mg/dL Total Bilirubin (0.2-1.0) mg/dL AST (15-37) U/L ALT (14-59) U/L Alkaline Phosphatase (46-116) U/L Troponin I 5 Cancelled (<or=51) ng/L Total Protein (6.4-8.2) g/dL Albumin (3.4-5.0) g/dL Lipase (<78) U/L Serum HCG, Qual Beta HCG, Quant Urine Color (Yellow) Urine Clarity (Clear) Urine pH (5-8) Ur Specific Edna (1.005-1.025) Urine Protein (Neg-Trace) mg/dL Urine Ketones (Negative) mg/dL Urine Blood (Negative) Urine Nitrite (Negative) Urine Bilirubin (Negative) Urine Urobilinogen (Up to 0.2) mg/dL Ur Leukocyte Esterase (Negative) Urine RBC (0-2) HPF Urine WBC (0-5) HPF Ur Epithelial Cells (Negative) HPF Urine Crystals (Negative) HPF Urine Bacteria (Negative) HPF Urine Mucus (Negative) Ur Culture Indicated? Urine Glucose (Negative) mg/dL Add-On Test Request DONE 05/04/24 05/04/24 Range/Units 16:13 16:11 WBC 8.96 (4.4-10.8) 10^3/uL RBC 4.16 (3.93-5.22) 10^6/uL Hgb 13.1 (11.2-15.7) g/dL Hct 37.4 (36.0-46.0) % MCV 90 (80-95) fL MCH 31.5 (27.0-33.0) pg MCHC 35.0 (32.0-36.0) % RDW 11.3 L (11.7-14.6) % Plt Count 305 (130-400) 10^3/uL MPV 8.8 (8.0-11.0) fL Immature Gran % 0.4 % Neutrophils % 59.7 % Lymphocytes % 27.1 % Monocytes % 10.0 % Eosinophils % 2.0 % Basophils % 0.8 % Nucleated RBC % 0.0 (0.0-0.3) % Absolute Neutrophils 5.34 (1.2-6.7) 10^3/uL Absolute Lymphocytes 2.43 (1.2-3.4) 10^3/uL Absolute Monocytes 0.90 H (0.1-0.8) 10^3/uL Absolute Eosinophils 0.18 (0.0-0.7) 10^3/uL Absolute Basophils 0.07 (0.0-0.2) 10^3/uL Sodium 124 L* (136-145) mmol/L Potassium 3.3 L (3.5-5.1) mmol/L Chloride 89 L (98-107) mmol/L Carbon Dioxide 28.1 (21.0-32.0) mmol/L Anion Gap 6.9 (3-11) mmol/L BUN 7 (7-18) mg/dL Creatinine 0.6 (0.55-1.02) mg/dL Est GFR (CKD-EPI 2020) 107.26 (mL/min/1.73m2) Glucose 128 H (74-106) mg/dL Calcium 9.1 (8.5-10.1) mg/dL Magnesium 1.8 (1.8-2.4) mg/dL Total Bilirubin 0.28 (0.2-1.0) mg/dL AST 20 (15-37) U/L ALT 34 (14-59) U/L Alkaline Phosphatase 104 (46-116) U/L Troponin I 4 (<or=51) ng/L Total Protein 7.6 (6.4-8.2) g/dL Albumin 3.6 (3.4-5.0) g/dL Lipase 51 (<78) U/L Serum HCG, Qual Negative Beta HCG, Quant Cancelled Urine Color Other (Yellow) Urine Clarity Clear (Clear) Urine pH 7.0 (5-8) Ur Specific Edna 1.010 (1.005-1.025) Urine Protein Negative (Neg-Trace) mg/dL Urine Ketones Negative (Negative) mg/dL Urine Blood Trace-intact H (Negative) Urine Nitrite Negative (Negative) Urine Bilirubin Negative (Negative) Urine Urobilinogen 0.2 (Up to 0.2) mg/dL Ur Leukocyte Esterase Negative (Negative) Urine RBC 0-2 (0-2) HPF Urine WBC Negative (0-5) HPF Ur Epithelial Cells Negative (Negative) HPF Urine Crystals Negative (Negative) HPF Urine Bacteria Negative (Negative) HPF Urine Mucus Negative (Negative) Ur Culture Indicated? No Urine Glucose Negative (Negative) mg/dL Add-On Test Request Intake and Output - 24 Hour Total 05/04/24 15:45 thru 05/04/24 16:01 Weight 81.193 kg Falls Risk Assessment History of Falls No History 05/04/24 16:30 Contributing Factors No Factors 05/04/24 16:30 Ambulatory Aids Independent 05/04/24 16:30 Tubes/Lines None 05/04/24 16:30 Gait Evaluation No gait disturbance 05/04/24 16:30 Cognition No cognitive impairment 05/04/24 16:30 Fall Total Score 0 05/04/24 16:30 Level of Risk Standard/Low Risk 05/04/24 16:30 Problems (Last Reviewed 03/03/24 @ 11:49 by Chinyere Marie NP) Hyponatremia (Acute) Bipolar disorder (Chronic) Hydroureteronephrosis (Acute) Diabetes mellitus (Chronic 09/11/13) Hypothyroidism (Chronic 09/11/13) Seizure disorder (Chronic 09/11/13) Notes 05/04/24 19:56 Nursing Notes by Conchis Aviles pt refused lab work including repeat troponins, urine sodium and self cathing supplies. pt was made aware that with lack of repeat lab work it could inhibit her care. pt is aware. Initialized on 05/04/24 19:56 - END OF NOTE 05/04/24 16:27 Nursing Notes by Claribel Fry Nursing Note: Patient refused ekg at 1615 MD aware of situation Initialized on 05/04/24 16:27 - END OF NOTE v v v v v v v v v Sending and/or Receiving Nurses: Please use comment section below to note any information pertinent to the patient hand-off not included above. Information / Comments: came in with complaints of hypoglycemia and abdominal pain, blood sugar was not hypoglycemic A&Ox4 VSS: bp 98/74 SPO2 99% ra RAC diffusics Refused urine, repeat labs, straight cath. hx of urinary retention diarrhea x1 walks with cane Report received from: Ana Maria @ [id number]
[2024-05-04 21:14] VITALS: BP 110/70; PULSE 72; RESP 14; TEMP 36.7; O2SAT 92
[2024-05-04 21:15] VITALS: BP 110/70; PULSE 72; RESP 14; TEMP 36.7; O2SAT 92
[2024-05-04] MEDS: Normal Saline Flush 10 ML SYR IVP (22:03)
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
[2024-05-04] MEDS: Budesonide/Formoterol 160/4.5 6 GM 60 PUFF INH IH (22:28)
--- NOTE | 2024-05-04 22:41 | RESPIRATORY ---
RT spoke with patient for DAVIS diagnosis. Pt. stated that she does use CPAP machine without O2, which she did not bring here with her and pt. reported RT that has not been using it due to mental status, suffering from anxiety that cause intolerance to CPAP per pt's report. RT convinced pt. to let us know if she decides to use [facility]'s machine later. Pt. refused to use hospital's CPAP at this time due to same situation. CAROLANN Patricio.
[2024-05-04] MEDS: Ondansetron O.D.T. 4 MG TABEF PO (23:50)
[2024-05-04] MEDS: lamoTRIgine 25 MG TAB PO (23:51)
[2024-05-05] MEDS: Melatonin 3 MG TAB PO (00:19)
[2024-05-05 00:47] LABS: Sodium, Urine 14 mmol/L
[2024-05-05 02:46] VITALS: BP 95/54; PULSE 72; RESP 19; TEMP 36.8; O2SAT 98
--- NOTE | 2024-05-05 03:15 | NUR.NOTE ---
Nursing Note: Pt is resistive to care, and non compliant with orders. Pt has discussed with nursing staff numerous time overnight the importance of the fluid restriction. pt is adamant that the fluid restriction will make her worse. Pt states she is withering away from dehydration, Pt states she is dying from low bp, hypoglycemia, and way too dry. Pt's BP was 95/54, BP in ED was 98/74. Pt states the fluid restriction is not good care. Pt's intake over 6hrs is 900ml/1,200ml. Fluid restriction 1,200ml/day
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
[2024-05-05] MEDS: Levothyroxine 88 MCG TAB PO (06:14)
[2024-05-05 06:54] LABS: HCT 36.6 % (36.0-46.0); HGB 12.8 g/dL (11.2-15.7); MCH 31.9 pg (27.0-33.0); MCV 91 fL (80-95); MPV 8.9 fL (8.0-11.0); Platelet Count 293 10^3/uL (130-400); RBC 4.01 10^6/uL (3.93-5.22); RDW 11.8 % (11.7-14.6); RDW-SD 39.4 fL; WBC 6.14 10^3/uL (4.4-10.8)
[2024-05-05 07:07] LABS: BUN 7 mg/dL (7-18); CREATININE 0.7 mg/dL (0.55-1.02); Calcium 9.2 mg/dL (8.5-10.1); Chloride 105 mmol/L (98-107); Estimated GFR 103.35 (mL/min/1.73m2); Glucose 105 mg/dL (74-106); Magnesium 2.2 mg/dL (1.8-2.4); Potassium 3.9 mmol/L (3.5-5.1); Sodium 140 mmol/L (136-145)
[2024-05-05 07:34] VITALS: BP 118/61; PULSE 81; RESP 16; TEMP 37; O2SAT 95
[2024-05-05] MEDS: Polyethylene Glycol 3350 17 GM PACKET PO (08:05)
[2024-05-05] MEDS: Diclofenac 1% Gel 100 GM TUBE TP ×2 (08:05→12:15)
[2024-05-05] MEDS: lamoTRIgine 25 MG TAB PO (08:06)
[2024-05-05] MEDS: Enoxaparin 40 MG/0.4 ML SYR SC (08:06)
[2024-05-05] MEDS: metFORMIN 500 MG TAB PO (08:06)
[2024-05-05] MEDS: Ondansetron O.D.T. 4 MG TABEF PO (08:06)
[2024-05-05] MEDS: Sennosides/Docusate Sodium TAB 2 TAB PO (08:06)
[2024-05-05] MEDS: Normal Saline Flush 10 ML SYR IVP (08:07)
[2024-05-05] MEDS: Budesonide/Formoterol 160/4.5 6 GM 60 PUFF INH IH (08:33)
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
[2024-05-05 11:00] VITALS: BP 125/66; PULSE 78; RESP 19; TEMP 36.3; O2SAT 95
[2024-05-05] MEDS: Famotidine 20 MG TAB 40 MG PO (11:47)
--- NOTE | 2024-05-05 11:55 | CMDISCH_ITS ---
Date of service: 05/05/24 Time of Service: 11:55 LACE Index Scoring Tool Questions: Length of Stay (in days): 1 Was the patient admitted via the E.D.?: Yes Comorbidities: Diabetes w/o Complication E.D. Visits: 5 Answers: Total Score: 9 Risk of Readmission: Low Risk Care Management Discharge Plan Reason for Hospitalization: Hyponatremia Discharge Plan: Discharge home with resumption on community supports and follow up with community providers. Transportation will be provided by RCT. No new [facility] services are ordered prior to discharge. Patient/Family Education Needs: Review discharge instructions, limitations, medications and plan to follow up with community providers. Discuss ask me three. Services Needed at Discharge: Homemaking Services (Resume) and Transportation (RCT private vehicle) SDOH Health Related Social Needs: Health related social needs transportation insecurity( Z59.82), problem rel ated to primary support group(Z63.9) Health related social needs: transportation insecurity(Z59.82) and problem related to primary support group(Z63.9) Referrals and interventions: Pt states she is Buddhism
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
--- NOTE | 2024-05-07 07:47 | NUR.NOTE ---
Access chart to reconcile EKG orders with EKG's in [facility]. No EKG in [facility] or documented. Order cancelled. Nursing Note:
== END 2024-05-05 15:11 | disposition home or self-care (01) ==
LOC: ER 20:31 → MS 21:07
PROVIDERS: Admitting Provider Family Medicine; Emergency Provider Emergency Medicine; PCP Student in an Organized Health Care Education/Training Program; Visit Provider Family Medicine
DX: E87.1 Hypo-osmolality and hyponatremia (principal); N13.30 Unspecified hydronephrosis; F31.9 Bipolar disorder, unspecified; R73.03 Prediabetes; E03.9 Hypothyroidism, unspecified; E86.0 Dehydration; R33.9 Retention of urine, unspecified; Z79.899 Other long term (current) drug therapy; R10.9 Unspecified abdominal pain; R11.2 Nausea with vomiting, unspecified; R19.7 Diarrhea, unspecified; F41.1 Generalized anxiety disorder; K21.9 Gastro-esophageal reflux disease without esophagitis; F60.3 Borderline personality disorder; G40.909 Epilepsy, unspecified, not intractable, without status epilepticus; I10 Essential (primary) hypertension; M17.0 Bilateral primary osteoarthritis of knee; J45.909 Unspecified asthma, uncomplicated; M54.50 Low back pain, unspecified; G47.33 Obstructive sleep apnea (adult) (pediatric)
CPT/HCPCS: 00123; 36415; 80048; 80053; 83690; 85027; 94640; 96372; 96374; 99285; J1650; 74177; 81003; 81015; 83735; 84300; 84484; 84702; 84703; 85025; 94664; 99223; 99239; G0378; J2405; J3490

== ENCOUNTER 2024-05-08 16:05 | Outpatient (REF) | payer MEDICAID, SELFPAY ==
[2024-05-08 20:27] LABS: BUN 11 mg/dL (7-18); CREATININE 0.6 mg/dL (0.55-1.02); Calcium 10.5 mg/dL (8.5-10.1); Chloride 102 mmol/L (98-107); Estimated GFR 107.26 (mL/min/1.73m2); Glucose 113 mg/dL (74-106); Potassium 4.7 mmol/L (3.5-5.1); Sodium 140 mmol/L (136-145)
== END 2024-05-08 16:06 | disposition home or self-care (01) ==
LOC: NCHCN 16:05
PROVIDERS: PCP Student in an Organized Health Care Education/Training Program; Visit Provider Student in an Organized Health Care Education/Training Program
DX: E87.1 Hypo-osmolality and hyponatremia (principal)
CPT/HCPCS: 80048

== ENCOUNTER 2024-06-11 15:46 | Outpatient (CLI) | payer MEDICAID, SELFPAY ==
--- NOTE | 2024-06-11 14:45 | DI.RAD_ITS ---
Exam(s) XR KNEE RT 4V AP,LAT,CONNER,PAT EXAM: XR KNEE RT 4V AP,LAT,CONNER,PAT CLINICAL HISTORY: eval R knee pain and OA. TECHNIQUE: 2D digital imaging was performed. Three views. COMPARISON: CR XR KNEE COMPLETE MIN 4V RT from 06/27/2021 FINDINGS: BONES: No acute fracture is present. No bony destructive lesion is seen. JOINTS: Severe narrowing of the lateral patellofemoral joint prominent periarticular spurring. Some lateral patellar subluxation is also present. Femoral tibial joint spaces are maintained. There is some spurring from the lateral femoral condyle and tibial spines. No joint effusion is seen. SOFT TISSUE: Normal. IMPRESSION: Severe degenerative changes of the lateral patellofemoral joint. DATA REPOSITORY: RADIATION DOSE DELIVERED:
== END 2024-06-11 15:47 | disposition home or self-care (01) ==
LOC: DIORS 15:46
PROVIDERS: PCP Student in an Organized Health Care Education/Training Program; Visit Provider Student in an Organized Health Care Education/Training Program
DX: M17.11 Unilateral primary osteoarthritis, right knee (principal)
CPT/HCPCS: 73564